=== PATIENT | female | born 1945 | race Two or more races ===

== ENCOUNTER 2017-08-29 05:16 | Day surgery (SDC) | payer OTHER ==
[2017-08-28 17:06] VITALS: BMI 33.0
[2017-08-29] MEDS ORDERED: LIDOCAINE HCL 2% 100 MG/5 ML DISP.SYRIN ONE (07:10)
[2017-08-29] MEDS ORDERED: DEXAMETHASONE SOD PHOSPHATE 4 MG/1 ML VIAL ONE (07:10)
[2017-08-29] MEDS ORDERED: SUCCINYLCHOLINE CHLORIDE 200 MG/10 ML VIAL ONE (07:11)
[2017-08-29] MEDS ORDERED: PROPOFOL 20 ML ONE (07:11)
[2017-08-29] MEDS ORDERED: MIDAZOLAM HCL 2 MG/2 ML SINGLE DOSE VIAL ONE ×3 (07:11→07:34)
--- NOTE | 2017-08-29 08:11 | HP ---
[facility]ellite [facility] - Chief Complaint Chief Complaint: right shoulder pain, decreased ROM History of Present Illness: right shoulder impingement, RTC tear History Source: Patient Limitations to Obtaining History: No Limitations - Past Medical History Allergies/Adverse Reactions: Allergies Allergy/AdvReac Type Severity Reaction Status Date / Time No Known Drug Allergies Allergy Verified 08/28/17 17:06 - Current Medications Current Medications: Home Medications Medication Instructions Recorded NK [No Known Home Medication] 08/28/17 Satellite Physical Exam - Physical Examination Vital Signs: Vital Signs Period Temp Pulse Resp BP Sys/Bellamy Pulse Ox Last 24 Hr 98.3 F-98.3 F 85-85 20-20 119-119/51-51 95 General Appearance: Well Nourished ENT: Clear Lung: Clear to auscultation Heart: Regular rate & rhythm Breasts: Soft Abdomen: Soft Extremities: No edema Satellite Impression/Plan - Impression/Plan Impression: right shoulder impingement, RTC tear Operative Procedure: right shoulder arthroscopy, decompression, RTC tear Date to be Performed: 08/29/17
[2017-08-29] MEDS ORDERED: ceFAZolin SODIUM 1 GM VIAL IVPB ONE (08:30)
[2017-08-29] MEDS ORDERED: ceFAZolin SODIUM 1 GM VIAL ONE ×2 (08:40→10:56)
[2017-08-29] MEDS ORDERED: PHENYLEPHRINE HCL 10 MG/1 ML SINGLE DOSE VIAL ONE (09:16)
--- NOTE | 2017-08-29 09:45 | OP ---
Operative Note - Note: Operative Date: 08/29/17 Pre-Operative Diagnosis: right shoulder impingement, RTC tear, adhesive capsulitis Operation: right shoulder arthroscopy, subacromial decompression, manipulation under anesthesia, open RTC repair Implants: Arthrex Swivel Lock x 2, fiber wire x 4 Surgeon: Mohsen Bello Academic Affairs Director: Shahbaz Jett Anesthesiologist/FASHION DESIGNER: Beatriz East Anesthesia: General, Local Specimens Removed: shavings Estimated Blood Loss (mls): 50 Blood Volume Replaced (mls): 0 Fluid Volume Replaced (mls): 500 Operative Report Dictated: Yes
[2017-08-29] MEDS ORDERED: ONDANSETRON 4 MG/2 ML VIAL IVPUSH PRN (10:37)
[2017-08-29] MEDS ORDERED: oxyCODONE HCL 5 MG TABLET PO PRN ×2 (10:37)
[2017-08-29] MEDS ORDERED: LACTATED RINGERS SOLUTION 1,000 ML IV SCH (10:45)
[2017-08-29 11:32] VITALS: TEMP 97.8
--- NOTE | 2017-08-29 12:15 | OP ---
DATE OF OPERATION: 08/29/2017 PREOPERATIVE DIAGNOSIS: Right shoulder subacromial impingement, adhesive capsulitis, and rotator cuff tear. POSTOPERATIVE DIAGNOSIS: Right shoulder subacromial impingement, adhesive capsulitis, and rotator cuff tear. PROCEDURE: Right shoulder arthroscopy, subacromial decompression, manipulation under anesthesia, and mini-open rotator cuff repair. SURGEON: Maximo Templeton MD BELLY PACKER: JESSICA Cabrera WALL CLEANER: Tracie Noeln ANESTHESIA: Right interscalene block with Dr. Tommy Murphy and LMA anesthesia. DRAINS: None. COMPLICATIONS: None. SPECIMEN: Arthroscopic shavings. BLOOD LOSS: 50 mL. BLOOD GIVEN: None. FLUID REPLACEMENT: 500 mL. DESCRIPTION OF PROCEDURE: The patient is a 72-year-old female with a preoperative diagnosis of a right shoulder impingement, adhesive capsulitis, and a rotator cuff tear. After understanding the potential risks, complications, alternatives, and benefits of surgery versus nonsurgical treatment, the patient elected to undergo this procedure. The patient was brought into the operating room, peripheral IV placed, and IV sedation given. One gram of IV Ancef was given. Right interscalene block was performed. LMA anesthesia was induced. She was placed in the beach-chair position with ample padding throughout. The right upper extremity was prepped and draped in sterile fashion. The bony landmarks were marked out with a marking pen, and posterior portal was established. A diagnostic glenohumeral arthroscopy was performed. The patient had a complete rotator cuff tear. The biceps tendon, the labrum, the glenohumeral joint otherwise looked good. The arthroscope was then introduced into the subacromial space. Under direct visualization using a spinal needle, a lateral portal was established. The Green cannula was introduced into this portal. Patient had a tremendous amount of inflammatory bursitis. An extensive debridement/soft tissue bursectomy was performed with the ArthroCare Wand. This revealed a moderate size subacromial spur. This was taken down with a 5.5-mm oval arlyn and fine-tuned in reverse with the shaver. Small portion of distal clavicle was removed, as well. The area was copiously irrigated and washed out. The top surface full complete rotator cuff tear was directly visualized. The ArthroCare Wand was used to remove some soft tissue at the insertion site of the rotator cuff, and the rasp used to decorticate it mildly. Next, using the Scorpion needle passer, 4 FiberWires were placed through the rotator cuff. I then mobilized it with the periosteal elevator. We converted to a mini-open approach. The lateral portal was extended with a No. 11 scalpel blade. Subcutaneous hemostasis was achieved with a Bovie cautery. Dissection done down to the acromion. A Judy retractor was placed into the wound. Additional open bursectomy was performed. The rotator cuff lining bed was further decorticated with the rasp for better fixation. I tried to immobilize it more. Next, the posterior 4 FiberWire suture tails were placed through an Arthrex SwiveLock anchor. This was placed into the humeral head. The same was done to the anterior 4 FiberWire tails. After the rotator cuff repair, the rotator cuff moved as a unit with the humerus. There was complete coverage of the humeral head and overall the repair was quite good. I felt the undersurface of the rotator cuff and the decompression was quite good. The area was copiously irrigated and washed out. Closure was done with 0 Vicryl in the deep deltoid fascia, 2-0 Vicryl used in the deep dermal layer, final skin reapproximation was done with a running subcuticular 3-0 V-Loc suture, and the posterior portal was closed with nylon. SwiftSet glue was over the lateral incision. The area was washed dry and covered with Aquacel dressing. The patient was placed into shoulder immobilizer. Total operative time was about 55 minutes. There were no complications during the case. The patient tolerated the procedure quite well and was brought to the ambulatory recovery room in stable condition. MAXIMO TEMPLETON M.D. [id number]
[2017-08-29 14:38] VITALS: BP 142/72; PULSE 100
--- NOTE | 2017-08-30 17:47 | PATH ---
Surgical Pathology Report Patient Name: KYLER ANDINO Med. Rec. #: [id number] /Age/Gender: 1945 (Age: 72) / F Account: [id number] Location: [facility] SURGICAL Taken: 08/29/2017 Received: 08/29/2017 Reported: 08/30/2017 Physicians: Mohsen Bello M.D. Specimen(s) Received RIGHT SHOULDER SHAVINGS Clinical History Rotator cuff tear right shoulder Final Diagnosis SHOULDER SHAVINGS, RIGHT, ARTHROSCOPY: FRAGMENTS OF BENIGN CARTILAGE, SYNOVIUM, ADIPOSE TISSUE, AND SKELETAL MUSCLE. Electronically Signed Shantelle Rivas M.D. Gross Description Received in formalin labeled "right shoulder shavings," is a 1.8 x 1.5 x 0.3 cm aggregate of cohn soft tissue fragments. The formalin is filtered and the specimen is entirely submitted in one cassette. /08/29/2017 saudi/08/29/2017
== END 2017-08-29 13:20 | disposition home or self-care (01) ==
LOC: JASU-SURG 05:16
PROVIDERS: ATTEND Orthopaedic Surgery
PROC: 0RBK4ZZ Excision of Left Shoulder Joint, Percutaneous Endoscopic Approach (ICD-10-PCS; principal; 2017-08-29 08:00)
PROC: 0LQ10ZZ Repair Right Shoulder Tendon, Open Approach (ICD-10-PCS; 2017-08-29 08:00)
DX: M75.41 Impingement syndrome of right shoulder (principal); M75.01 Adhesive capsulitis of right shoulder; M75.101 Unspecified rotator cuff tear or rupture of right shoulder, not specified as traumatic
CPT/HCPCS: 88304-TC; 94760

== ENCOUNTER 2017-09-22 10:09 | Inpatient (IN) | payer OTHER ==
[2017-09-22] MEDS ORDERED: morphine CARPU-JECT 4 MG/1 ML DISP.SYRIN IVPUSH ONE (11:24)
[2017-09-22] MEDS ORDERED: SODIUM CHLORIDE 1,000 ML IV STA (11:24)
--- NOTE | 2017-09-22 11:24 | PDOC ---
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 Pt notes the pain was severe on sun into , then improved. saw her PMD who started her on omeprazole with improvement of her symptoms Pt states the pain was originally 12/10, on / sun/sat, improved to 5/10. pt denies any fever/chills, n/v, cp, diaprheosis, sob , diarrhea, dysuria, hematuria. Pt states she has not eaten anything in 3 days due to the pain. No prior history of tihs pain in the past, this pain not worse with exertion. GENERAL: The patient is awake, alert, and fully oriented, Nontoxic - in no acute distress. HEAD: Normocephalic, atraumatic. EYES: extraocular movements intact, sclera anicteric, conjunctiva clear. ENT: Normal voice, Moist mucous membranes. NECK: Normal range of motion, supple LUNGS: Breath sounds equal, clear to auscultation bilaterally. No wheezes, no rhonchi, no rales. HEART: Regular rate and rhythm, normal S1 and S2 without murmur, rub or gallop. ABDOMEN: moderate RUQ and epigastric tenderness, no rebound/guarding, +Murphies test EXTREMITIES: Normal range of motion, no edema. No clubbing or cyanosis. No cords, erythema, or tenderness. NEUROLOGICAL: No facial assymetry, Normal speech, PSYCH: Normal mood, normal affect. SKIN: Warm, Dry, normal turgor, ddx includs cholelithiasis, cholecystitis, pancreatitis, recurrent gastric ca will ck labs pain meds, zofran for nausea fluids for dheydartation - Physicial Exam PE: 09/23/17 14:54 see aboive - Medical Decision Making 09/22/17 15:04 The patient's labs were reviewed and noted for white count of 15. The patient's CT noted changes suspicious of cholecystitis. We'll give the patient antibiotics will consult with surgery anticipate admission for further management 09/22/17 15:[address] brady of surgery Will admit to the hospitalist service agree with admission for further management Case discussed in detail with admitting physician including history, physical exam and ancillary studies. Admitting physician has assumed care for the patient, will follow all pending diagnostics and will complete the evaluation and treatment. <Satish Byers - Last Filed: 09/23/17 14:54> Heart Score/ECG Review - ECG Impressions Comment:: 09/22/17 15:05 Twelve-lead EKG was performed and reviewed by me. There is normal sinus rhythm with a rate of 109 Q waves in inferior leads No ST changes suggestive of acute ischemia. <Satish Byers - Last Filed: 09/23/17 14:54> ED Treatment Course - LABORATORY CBC & Chemistry Diagram: 09/22/17 11:55 09/22/17 11:55 - ADDITIONAL ORDERS Additional order review: Laboratory Results 09/22/17 09/22/17 11:55 11:55 Sodium 135 L Potassium 4.0 Chloride 99 Carbon Dioxide 27 Anion Gap 9 BUN 17 Creatinine 0.8 Creat Clearance w eGFR > 60 Random Glucose 104 Calcium 9.0 Total Bilirubin 0.9 D AST 16 ALT 26 Alkaline Phosphatase 126 H Total Protein 7.3 Albumin 3.2 L Lipase 87 Urine Color Felicia Urine Appearance Slcloudy Urine pH 5.0 Ur Specific [place] 1.028 Urine Protein 2+ H Urine Glucose (UA) Negative Urine Ketones Negative Urine Blood Negative Urine Nitrite Negative Urine Bilirubin Negative Urine Urobilinogen 4.0 e.u/dl H Ur Leukocyte Esterase Negative Urine WBC (Auto) 3 Urine RBC (Auto) 14 Ur Epithelial Cells Many Urine Bacteria Rare Urine Mucus Many 09/22/17 11:55 RBC 4.28 MCV 93.9 MCHC 33.6 RDW 13.3 MPV 8.3 Neutrophils % 82.2 D Lymphocytes % 8.6 D Monocytes % 7.6 Eosinophils % 1.3 D Basophils % 0.3 - RADIOLOGY Radiograph Interpretation: 09/22/17 15:21 EXAM: CT abdomen and Pelvis INTERPRETED BY: Dr. Armando REVIEWED BY: Dr. Byers IMPRESSION: 1. Cholelithiasis and CT findings compatible with acute cholecystitis in the appropriate clinical setting. 2. Since 09/27/2010 CT, interval resolution of solid mesenteric mass/lymphadenopathy. 3. Nonobstructing left nephrolithiasis as described above. No hydronephrosis. 4. Hepatic steatosis. 5. Please refer to the report above for other findings. - Medications Given in the ED: ED Medications Discontinued Medications Generic Name Dose Route Start Last Admin Trade Name Freq PRN Reason Stop Dose Admin Sodium Chloride 1,000 mls @ 1,000 mls/hr 09/22/17 11:24 09/22/17 11:54 Normal Saline - IV 09/22/17 12:23 1,000 mls/hr ASDIR STA Administration Morphine Sulfate 4 mg 09/22/17 11:24 09/22/17 11:54 Morphine Injection - IVPUSH 09/22/17 11:25 4 mg ONCE ONE Administration Ondansetron HCl 4 mg 09/22/17 11:27 09/22/17 11:54 Zofran Injection IVPUSH 09/22/17 11:28 4 mg ONCE ONE Administration <Graham Yen - Last Filed: 09/22/17 15:17> - LABORATORY CBC & Chemistry Diagram: 09/23/17 07:00 09/23/17 07:00 <Satish Byers - Last Filed: 09/23/17 14:54>
[2017-09-22] MEDS ORDERED: ONDANSETRON 4 MG/2 ML VIAL IVPUSH ONE (11:27)
[2017-09-22] MEDS ORDERED: SODIUM CHLORIDE 1,000 ML IV SCH (11:30)
--- NOTE | 2017-09-22 11:35 | EKG ---
Test Reason : Blood Pressure : / mmHG Vent. Rate : 109 BPM Atrial Rate : 109 BPM P-R Int : 152 ms QRS Dur : 074 ms QT Int : 302 ms P-R-T Axes : 044 010 026 degrees QTc Int : 406 ms SINUS TACHYCARDIA POSSIBLE LEFT ATRIAL ENLARGEMENT INFERIOR INFARCT , AGE UNDETERMINED CANNOT RULE OUT ANTERIOR INFARCT , AGE UNDETERMINED ABNORMAL ECG WHEN COMPARED WITH ECG OF 18-AUG-2017 10:28, INFERIOR INFARCT IS NOW PRESENT Confirmed by JESSICA CONDE, NIKOLAY ([id number]) on 09/22/2017 11:34:38 AM Referred By: Confirmed By:NIKOLAY LOPEZ MD
[2017-09-22] MEDS ORDERED: morphine SULFATE 4 MG/ML VIAL ONE (11:38)
[2017-09-22] MEDS ORDERED: ONDANSETRON 4 MG/2 ML VIAL ONE (11:38)
--- NOTE | 2017-09-22 11:43 | PDOC ---
History of Present Illness - General History Source: Patient Exam Limitations: No Limitations, Language Barrier - History of Present Illness Initial Comments: 09/22/17 11:28 72 year old female with pmhx of gastric lymphoma S/P chemo therapy 7 years ago and recent r shoulder surgery presented to the ED today with 3 days history of abdominal pain 7/10 , pressure like id epigastric , radiated to RUQ abdomen, not related to food , worsen with any movement , associated with headache 7/10 B.L , nausea but no vomiting, denies any fever, chills, recent cold, diarrhea or constipation , pt reports not eating for the last 2 days due to pain , she feels very dry and get dizziy when she get out of bed. pt visited her PC and prescribed her omeprazole 40 mg that help with pain. PMHX: Gastric lymphoma 7 years ago treated with chemotherapy PSHx: Right shoulder surgery Allergis: NKDA Meds: Omeprazole 40 mg po daily Fhx: Father of prostate cancer, mother 102 healthy Social hx: denies alcohol tobacco or drug abuse Physical Exam: Vital Signs Period Temp Pulse Resp BP Sys/Bellamy Pulse Ox Last 24 Hr 98.6 F 111 19 141/57 96 General: well nourished in NAD , right arm in sling Head: NC/AT , ENT: dry MM, SARINA , EOMI , Neck: supple Lungs: CTA B/L Heart: S1, S2, RRR, No MRG Abdomen: soft, diffuse tenderness in Mid epigastric , RUQ , umbilical area , brown;s positive , Neuro: no focal deficit, normal speech , normal gait , no tremor, no nystagmus , sensation symmetric, LE: +2 DP, no edema Psych: appropriate mood and effect. DD: Biliary cholic stones , cholecytitis R/O lymphoma mets UTI Pancretitis Work UP: CBC, cmp Lipase ct abdomen pelvic with iv contrast Morphine iV 2 mg Zofran 4 mg iv push 09/22/17 13:40 KKG: Sinus tachy, possible left atrial enlargement, inferior infarct age undertemined , can not r/o anterior infarct , vent rate 109, qtc 406 CBC, BMP 09/22/17 11:55 09/22/17 11:55 <Ryan An - Last Filed: 09/25/17 09:05> <Satish Byers - Last Filed: 09/27/17 09:32> - General Chief Complaint: Pain, Acute Stated Complaint: ABD PAIN Time Seen by Provider: 09/22/17 10:51 Past History - Past Medical History Anemia: No Asthma: No Cancer: Yes (HX OF LYMPHOMA 2010) Cardiac Disorders: No CVA: No COPD: No CHF: No Dementia: No Diabetes: No GI Disorders: No Disorders: No HTN: No Hypercholesterolemia: No Liver Disease: No Seizures: No Thyroid Disease: No - Surgical History Abdominal Surgery: No Appendectomy: Yes (MANY YEARS AGO) Cardiac Surgery: No Cholecystectomy: No Lung Surgery: No Neurologic Surgery: No - Suicide/Smoking/Psychosocial Hx Smoking History: Never smoked Have you smoked in the past 12 months: No Hx Alcohol Use: No Drug/Substance Use Hx: No Substance Use Type: None Hx Substance Use Treatment: No <Ryan An - Last Filed: 09/25/17 09:05> <Satish Byers - Last Filed: 09/27/17 09:32> - Past Medical History Allergies/Adverse Reactions: Allergies Allergy/AdvReac Type Severity Reaction Status Date / Time No Known Drug Allergies Allergy Verified 09/22/17 10:32 Home Medications: Ambulatory Orders Acetaminophen [Tylenol] 650 mg PO Q4H PRN 09/22/17 Omeprazole 40 mg PO DAILY 09/22/17 Amoxicillin/Potassium Clav [Augmentin 875-125 Tablet] 1 each PO BID #14 tablet 09/26/17 *Physical Exam - Vital Signs Last Vital Signs Temp Pulse Resp BP Pulse Ox 98.6 F 111 H 19 141/57 96 09/22/17 10:32 09/22/17 10:32 09/22/17 10:32 09/22/17 10:32 09/22/17 10:32 <Ryan An - Last Filed: 09/25/17 09:05> - Vital Signs Last Vital Signs Temp Pulse Resp BP Pulse Ox 99.7 F H 90 20 148/72 94 L 09/26/17 15:48 09/26/17 15:48 09/26/17 15:48 09/26/17 15:48 09/26/17 09:00 <Satish Byers - Last Filed: 09/27/17 09:32> ED Treatment Course - LABORATORY CBC & Chemistry Diagram: 09/25/17 06:15 09/25/17 06:15 <Ryan An - Last Filed: 09/25/17 09:05> - LABORATORY CBC & Chemistry Diagram: 09/26/17 05:35 09/26/17 05:35 - ADDITIONAL ORDERS Additional order review: 09/22/17 15:45 Blood Culture - Preliminary Blood - Peripheral Venous NO GROWTH OBTAINED AFTER 96 HOURS, INCUBATION TO CONTINUE FOR 1 DAYS. 09/22/17 15:45 Blood Culture - Preliminary Blood - Peripheral Venous NO GROWTH OBTAINED AFTER 96 HOURS, INCUBATION TO CONTINUE FOR 1 DAYS. 09/22/17 11:55 RBC 4.28 MCV 93.9 MCHC 33.6 RDW 13.3 MPV 8.3 Neutrophils % 82.2 D Lymphocytes % 8.6 D Monocytes % 7.6 Eosinophils % 1.3 D Basophils % 0.3 - Medications Given in the ED: ED Medications Discontinued Medications Generic Name Dose Route Start Last Admin Trade Name Freq PRN Reason Stop Dose Admin Bisacodyl 10 mg 09/26/17 10:00 09/26/17 11:06 Dulcolax Suppository - RC 09/26/17 10:01 10 mg ONCE ONE Administration Bisacodyl 5 mg 09/26/17 14:00 09/26/17 14:01 Dulcolax - PO 09/26/17 14:01 5 mg ONCE ONE Administration Fentanyl 50 mcg 09/24/17 18:38 09/24/17 22:05 Sublimaze Injection - IVPUSH 50 mcg [id number] PRN Administration PAIN-PACU ORDER X 4 DOSES ONLY Heparin Sodium (Porcine) 5,000 unit 09/22/17 22:00 09/24/17 14:56 Heparin - SQ Not Given TID TRACEY Heparin Sodium (Porcine) 5,000 unit 09/24/17 22:00 09/26/17 14:01 Heparin - SQ 5,000 unit TID TRACEY Administration Sodium Chloride 1,000 mls @ 125 mls/hr 09/22/17 11:30 09/22/17 12:29 Normal Saline - IV 125 mls/hr ASDIR TRACEY Administration Sodium Chloride 1,000 mls @ 1,000 mls/hr 09/22/17 11:24 09/22/17 11:54 Normal Saline - IV 09/22/17 12:23 1,000 mls/hr ASDIR STA Administration Metronidazole 500 mg in 100 mls @ 100 mls/hr 09/22/17 15:04 09/22/17 15:15 Flagyl 500mg Premixed Ivpb - IVPB 09/22/17 16:03 100 mls/hr ONCE ONE Administration Levofloxacin 750 mg in 150 mls @ 100 mls/hr 09/22/17 15:04 09/22/17 16:07 Levaquin 750 Mg Premixed Ivpb - IVPB 09/22/17 16:33 100 mls/hr ONCE ONE Administration Potassium Chloride/Dextrose/Sod Cl 20 meq in 1,000 mls @ 83 mls/hr 09/23/17 10 :00 09/24/17 10:22 D5-1/2ns+20 Meq Kcl - IV Not Given ASDIR TRACEY Metronidazole 500 mg in 100 mls @ 100 mls/hr 09/23/17 12:30 09/23/17 13:37 Flagyl 500mg Premixed Ivpb - IVPB Not Given Q8H-IV TRACEY Levofloxacin 500 mg in 100 mls @ 100 mls/hr 09/23/17 12:30 09/23/17 13:37 Levaquin 500 Mg Premixed Ivpb - IVPB Not Given DAILY TRACEY Piperacillin Sod/Tazobactam 50 mls @ 100 mls/hr 09/23/17 13:45 09/24/17 17:43 Sod 3.375 gm/ Dextrose IVPB 100 mls/hr Q8H-IV TRACEY Administration Protocol Potassium Chloride/Dextrose/Sod Cl 20 meq in 1,000 mls @ 83 mls/hr 09/24/17 21 :24 09/26/17 01:30 D5-1/2ns+20 Meq Kcl - IV 83 mls/hr ASDIR TRACEY Administration Piperacillin Sod/Tazobactam 50 mls @ 100 mls/hr 09/25/17 02:00 09/26/17 11:40 Sod 3.375 gm/ Dextrose IVPB Not Given Q8H-IV TRACEY Protocol Piperacillin Sod/Tazobactam 50 mls @ 100 mls/hr 09/26/17 11:00 09/26/17 11:46 Sod 3.375 gm/ Dextrose IVPB 09/26/17 18:29 Not Given Q8H-IV TRACEY Ibuprofen 600 mg 09/24/17 21:24 09/25/17 11:04 Motrin - PO 600 mg Q6H PRN Administration PAIN LEVEL 4 - 6 Ketorolac Tromethamine 30 mg 09/23/17 12:34 09/23/17 13:45 Toradol Injection - IVPUSH 09/23/17 12:35 30 mg ONCE ONE Administration Morphine Sulfate 4 mg 09/22/17 11:24 09/22/17 11:54 Morphine Injection - IVPUSH 09/22/17 11:25 4 mg ONCE ONE Administration Morphine Sulfate 1 mg 09/22/17 15:56 09/23/17 09:03 Morphine Sulfate IVPUSH 1 mg Q4H PRN Administration PAIN LEVEL 6-10 Morphine Sulfate 1 mg 09/24/17 21:24 09/25/17 06:23 Morphine Sulfate IVPUSH 1 mg Q4H PRN Administration PAIN LEVEL 7 - 10 Ondansetron HCl 4 mg 09/22/17 11:27 09/22/17 11:54 Zofran Injection IVPUSH 09/22/17 11:28 4 mg ONCE ONE Administration Oxycodone HCl 5 mg 09/25/17 13:16 09/25/17 14:15 Roxicodone - PO 09/25/17 13:17 5 mg ONCE ONE Administration Pantoprazole Sodium 40 mg 09/23/17 10:00 09/24/17 10:22 Protonix Iv IVPUSH 40 mg DAILY TRACEY Administration Pantoprazole Sodium 40 mg 09/25/17 10:00 09/26/17 12:40 Protonix Iv IVPUSH Not Given DAILY TRACEY Pantoprazole Sodium 40 mg 09/26/17 13:15 09/26/17 14:01 Protonix - PO 40 mg DAILY TRACEY Administration Polyethylene Glycol 17 gm 09/25/17 10:00 09/26/17 11:06 Miralax (For Daily Use) - PO 17 grams DAILY TRACEY Administration <Satish Byers - Last Filed: 09/27/17 09:32> Medical Decision Making - Medical Decision Making 09/27/17 09:31 diagnosis: cholecysitits pt give antibiotics will be admitted for further managment and surgical evaluation <Satish Byers - Last Filed: 09/27/17 09:32> *DC/Admit/Observation/Transfer <Ryan An - Last Filed: 09/25/17 09:05> <Satish Byers - Last Filed: 09/27/17 09:32> Diagnosis at time of Disposition: Cholecystitis - Discharge Dispostion Disposition: HOME Condition at time of disposition: Improved
[2017-09-22 12:32] LABS: BASO % 0.3 % (0-2.0); EOS % 1.3 % (0-4.5); HEMATOCRIT 40.2 % (32.4-45.2); HEMOGLOBIN 13.5 GM/dL (10.7-15.3); LYMPH % 8.6 % (8-40); MCH 31.5 pg (25.7-33.7); MCHC 33.6 g/dl (32.0-36.0); MEAN CELL VOLUME 93.9 fl (80-96); MEAN PLT VOLUME 8.3 fl (7.5-11.1); MONO % 7.6 % (3.8-10.2); NEUT % 82.2 % (42.8-82.8); PLATELET COUNT 308 K/MM3 (134-434); RBC 4.28 M/mm3 (3.60-5.2); RDW 13.3 % (11.6-15.6); WHITE BLOOD COUNT 15.3 K/mm3 (4.0-10.0)
[2017-09-22 12:34] LABS: URINE APPEARANCE SLCLOUDY; URINE BILIRUBIN NEGATIVE (<2.0 mg/dL); URINE COLOR AMBER; URINE GLUCOSE (UA) NEGATIVE (NEGATIVE); URINE KETONE NEGATIVE (NEGATIVE); URINE LEUK ESTERASE NEGATIVE (NEGATIVE); URINE NITRITE NEGATIVE (NEGATIVE); URINE UROBILINOGEN 4.0 E.U/dl mg/dL (0.2-1.0)
[2017-09-22 12:54] LABS: URINE PROTEIN 2+ (NEGATIVE)
[2017-09-22 12:57] LABS: EPI CELLS MANY /HPF (FEW); URINE BACTERIA RARE /hpf (NONE SEEN); URINE MUCUS MANY
[2017-09-22 13:02] LABS: ALBUMIN 3.2 g/dl (3.4-5.0); ANION GAP 9 (8-16); BLOOD UREA NITROGEN 17 mg/dL (7-18); CHLORIDE 99 mmol/L (98-107); CO2 27 mmol/L (21-32); CREATININE 0.8 mg/dL (0.55-1.02); GLUCOSE,RANDOM 104 mg/dL (74-106); LIPASE 87 U/L (73-393); SGOT/AST 16 U/L (15-37); SGPT/ALT 26 U/L (12-78); SODIUM 135 mmol/L (136-145)
[2017-09-22 13:03] LABS: ALK PHOS 126 U/L (45-117); BILIRUBIN,TOTAL 0.9 mg/dL (0.2-1.0); TOT PROT 7.3 g/dl (6.4-8.2)
--- NOTE | 2017-09-22 15:44 | HP ---
CHIEF COMPLAINT: Abdominal pain PCP: Dr. 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 Patient states her pain began on Sunday night at 8 pm. She states the pain was severe, 10/10, and constant. She called Dr. Ramos on who prescribed omeprazole. She took it with no relief. She went to his office today and was sent to the ER. Patient endorses nausea with food and loss of appetite x 3 days. She denies fever, chills, chest pain, shortness of breath , vomiting, diarrhea, constipation, lower extremity edema. ER course was notable for: (1) labs- leukocytosis (2) vitals- tachycardia (3) CT abd/pelvis-- acute cholecystitis Recent Travel: denies PAST MEDICAL HISTORY: as per hpi PAST SURGICAL HISTORY: appendectomy, recent right shoulder surgery Social History: Smoking:denies Alcohol:denies Drugs: denies Family History: noncontributory Allergies No Known Drug Allergies Allergy (Verified 09/22/17 10:32) HOME MEDICATIONS: Home Medications Medication Instructions Recorded Omeprazole 40 mg PO DAILY 09/22/17 REVIEW OF SYSTEMS CONSTITUTIONAL: Absent: fever, chills, diaphoresis, generalized weakness, malaise, loss of appetite, weight change HEENT: Absent: rhinorrhea, nasal congestion, throat pain, throat swelling, difficulty swallowing, mouth swelling, ear pain, eye pain, visual changes CARDIOVASCULAR: Absent: chest pain, syncope, palpitations, irregular heart rate, lightheadedness , peripheral edema RESPIRATORY: Absent: cough, shortness of breath, dyspnea with exertion, orthopnea, wheezing, stridor, hemoptysis GASTROINTESTINAL: Absent: abdominal pain, abdominal distension, nausea, vomiting, diarrhea, constipation, melena, hematochezia GENITOURINARY: Absent: dysuria, frequency, urgency, hesitancy, hematuria, flank pain, genital pain MUSCULOSKELETAL: Absent: myalgia, arthralgia, joint swelling, back pain, neck pain SKIN: Absent: rash, itching, pallor HEMATOLOGIC/IMMUNOLOGIC: Absent: easy bleeding, easy bruising, lymphadenopathy, frequent infections ENDOCRINE: Absent: unexplained weight gain, unexplained weight loss, heat intolerance, cold intolerance NEUROLOGIC: Absent: headache, focal weakness or paresthesias, dizziness, unsteady gait, seizure, mental status changes, bladder or bowel incontinence PSYCHIATRIC: Absent: anxiety, depression, suicidal or homicidal ideation, hallucinations. PHYSICAL EXAMINATION Vital Signs - 24 hr 09/22/17 09/22/17 10:32 13:33 Temperature 98.6 F 98.9 F Pulse Rate 111 H Pulse Rate [ 102 H Apical] Respiratory 19 20 Rate Blood Pressure 141/57 Blood Pressure 110/70 [Left Arm] O2 Sat by Pulse 96 96 Oximetry (%) GENERAL: Awake, alert, and fully oriented, in no acute distress. HEAD: Normal with no signs of trauma. EYES: Extraocular movements intact, sclera anicteric, conjunctiva clear. No lid lag. EARS, NOSE, THROAT: Ears normal, nares patent, oropharynx clear without exudates. Dry mucous membranes. NECK: Normal range of motion, supple without lymphadenopathy, JVD, or masses. LUNGS: Breath sounds equal, clear to auscultation bilaterally. No wheezes, and no crackles. No accessory muscle use. HEART: Tachycardic, Regular rhythm, normal S1 and S2 without murmur, rub or gallop. ABDOMEN: Soft, +Epigastric tenderness, RUQ tenderness, +Thurman's sign, not distended, normoactive bowel sounds, no guarding, no rebound, no masses. No hepatomegaly or splenomegaly. MUSCULOSKELETAL: Normal range of motion at all joints. No bony deformities or tenderness. No CVA tenderness. UPPER EXTREMITIES: 2+ pulses, warm, well-perfused. No cyanosis. No clubbing. No peripheral edema. LOWER EXTREMITIES: 2+ pulses, warm, well-perfused. No calf tenderness. No peripheral edema. NEUROLOGICAL: Cranial nerves II-XII intact. Normal speech. Normal gait. PSYCHIATRIC: Cooperative. Good eye contact. Appropriate mood and affect. SKIN: Warm, dry, normal turgor, no rashes or lesions noted, normal capillary refill. Laboratory Results - last 24 hr 09/22/17 09/22/17 09/22/17 11:55 11:55 11:55 WBC 15.3 H D RBC 4.28 Hgb 13.5 Hct 40.2 MCV 93.9 MCH 31.5 MCHC 33.6 RDW 13.3 Plt Count 308 MPV 8.3 Neutrophils % 82.2 D Lymphocytes % 8.6 D Monocytes % 7.6 Eosinophils % 1.3 D Basophils % 0.3 Sodium 135 L Potassium 4.0 Chloride 99 Carbon Dioxide 27 Anion Gap 9 BUN 17 Creatinine 0.8 Creat Clearance w eGFR > 60 Random Glucose 104 Calcium 9.0 Total Bilirubin 0.9 D AST 16 ALT 26 Alkaline Phosphatase 126 H Total Protein 7.3 Albumin 3.2 L Lipase 87 Urine Color Felicia Urine Appearance Slcloudy Urine pH 5.0 Ur Specific [place] 1.028 Urine Protein 2+ H Urine Glucose (UA) Negative Urine Ketones Negative Urine Blood Negative Urine Nitrite Negative Urine Bilirubin Negative Urine Urobilinogen 4.0 e.u/dl H Ur Leukocyte Esterase Negative Urine WBC (Auto) 3 Urine RBC (Auto) 14 Ur Epithelial Cells Many Urine Bacteria Rare Urine Mucus Many ASSESSMENT/PLAN: 72 year old F with 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 Waldron #Gastric lymphoma, in remission -f/u with oncology outpatient #FEN/GI -IVF @ 125 cc/hr -wnl -npo #PPx -Heparin 5000 sq q8h Dispo: Adm M/s Visit type - Emergency Visit Emergency Visit: Yes Care time: The patient presented to the Emergency Department on the above date and was hospitalized for further evaluation of their emergent condition. - New Patient This patient is new to me today: Yes Date on this admission: 09/22/17 - Critical Care Critical Care patient: No Hospitalist Screening - Colonoscopy Questionnaire Colonoscopy Questionnaire: Colonoscopy Questionnaire - Patient: 50 - 75 years old and never had a screening colonoscopy: Unknown History of colon or rectal polyps, or CA: Unknown History of IBD, Crohn's disease or UC: Unknown History of abdominal radiation therapy as a child: Unknown - Relative: 1 with colon or rectal CA, or polyps at age 60 or younger: Unknown Colon or rectal CA diagnosed at age 45 or younger: Unknown Multiple relatives with colon or rectal CA: Unknown - Outcome: Screening Result: Negative Screen
[2017-09-22] MEDS ORDERED: ONDANSETRON 4 MG/2 ML VIAL IVPUSH PRN (15:56)
--- NOTE | 2017-09-22 16:03 | CONSULT ---
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 Patient states her pain began on Sunday night at 8 pm. She states the pain was severe, 10/10, and constant. She called Dr. Ramos on who prescribed omeprazole. She took it with no relief. She went to his office today and was sent to the ER. Patient endorses nausea with food and loss of appetite x 3 days. She denies fever, chills, chest pain, shortness of breath, vomiting, diarrhea, constipation, lower extremity edema. no previous abdominal surgery. we were asked to assess. - History Source History Provided By: Patient, Medical Record Limitations to Obtaining History: No Limitations - Past Medical History Heme/Onc: Yes: Other (lymphoma) Additional Medical History: obesity - Alcohol/Substance Use Hx Alcohol Use: No - Smoking History Smoking history: Never smoked Have you smoked in the past 12 months: No Home Medications - Allergies Allergies/Adverse Reactions: Allergies Allergy/AdvReac Type Severity Reaction Status Date / Time No Known Drug Allergies Allergy Verified 09/22/17 10:32 - Home Medications Home Medications: Ambulatory Orders Omeprazole 40 mg PO DAILY 09/22/17 Review of Systems - Review of Systems Constitutional: denies: Chills, Fever, Malaise Eyes: denies: Blind Spots, Recent Change in Vision HENT: denies: Nasal Congestion, Ocular Prosthesis, Throat Pain Neck: denies: Stiffness, Tenderness Cardiovascular: denies: Chest Pain, Palpitations Respiratory: denies: Cough, SOB Gastrointestinal: reports: Abdominal Pain, Bloating. denies: Constipation, Diarrhea Genitourinary: denies: Discharge, Dysuria Musculoskeletal: denies: Muscle Pain, Muscle Cramps, Muscle Weakness Integumentary: reports: Incision (right shoulder). denies: Lesions, Rash Neurological: denies: Seizure, Syncope Endocrine: denies: Excessive Sweating, Unexplained Weight Gain, Unexplained Weight Loss Hematology/Lymphatic: denies: Easily Bruised, Excessive Bleeding Psychiatric: denies: Anxiety, Depression Physical Exam Vital Signs: Vital Signs Temperature 98.9 F 09/22/17 13:33 Pulse Rate 102 H 09/22/17 13:33 Respiratory Rate 20 09/22/17 13:33 Blood Pressure 110/70 09/22/17 13:33 O2 Sat by Pulse Oximetry (%) 96 09/22/17 13:33 Vital Signs Period Temp Pulse Resp BP Sys/Bellamy Pulse Ox Last 24 Hr 98.6 F-98.9 F 102-111 19-20 110-141/57-70 96-96 Constitutional: Yes: Calm, Diaphoresis, Mild Distress, Obese Eyes: Yes: Conjunctiva Clear, EOM Intact HENT: Yes: Atraumatic, Normocephalic Neck: Yes: Supple, Trachea Midline Cardiovascular: Yes: Tachycardia, S1, S2 Respiratory: Yes: Regular, CTA Bilaterally Gastrointestinal: Yes: Normal Bowel Sounds, Soft, Abdomen, Obese, Tenderness, Tenderness, Epigastrium (RUQ and +murphys). No: Ascites, Distention ...Rectal Exam: Yes: Deferred Renal/: No: CVA Tenderness - Left, CVA Tenderness - Right Musculoskeletal: No: Muscle Pain, Muscle Weakness Extremities: Yes: Other (right shoulder in a fixed sling). No: Cool, Cyanosis Wound/Incision: Yes: Clean/Dry, Well Approximated, Open to air (right shoudler) Neurological: Yes: Alert, Oriented Psychiatric: Yes: Alert, Oriented Labs: CBC, BMP 09/22/17 11:55 09/22/17 11:55 Imaging - Results Cat Scan: Report Reviewed, Image Reviewed (cholelithiasis with acute cholecystitis) EKG: Report Reviewed, Image Reviewed (sinus tach) Problem List - Problems (1) Calculous cholecystitis Assessment/Plan: 72 yo female MMP with Acute cholecystitis NPO and IVF hydration IV antibiotics Repeat labs Surgery 09/24, booked on the add-on schedule Discussed with patient risks, benefits and alternatives of laparoscopic possible open cholecystectomy, including but not limited to bleeding, infection , injury to adjacent structures, leak or injury, intraabdominal abscess, need for further procedures, ; alternatives include antibiotics, delayed or no surgery - risks of this include failure of nonoperative therapy, perforation, sepsis, recurrence, . Patient desires to proceed with operation - will take to OR for above. Informed consent signed for same. Code(s): K80.10 - CALCULUS OF GALLBLADDER W CHRONIC CHOLECYST W/O OBSTRUCTION Qualifiers: Cholecystitis acuity: acute Biliary obstruction: without biliary obstruction Qualified Code(s): K80.00 - Calculus of gallbladder with acute cholecystitis without obstruction (2) Obesity (BMI 30.0-34.9) Code(s): E66.9 - OBESITY, UNSPECIFIED (3) Gastric lymphoma Code(s): C85.93 - NON-HODGKIN LYMPHOMA, UNSP, INTRA-ABDOMINAL LYMPH NODES (4) Subacromial impingement of right shoulder Code(s): M75.41 - IMPINGEMENT SYNDROME OF RIGHT SHOULDER (5) Leukocytosis (leucocytosis) Code(s): D72.829 - ELEVATED WHITE BLOOD CELL COUNT, UNSPECIFIED
--- NOTE | 2017-09-22 16:22 | PN ---
Teaching Attending Note Name of Resident: Jameson Parker ATTENDING PHYSICIAN STATEMENT I saw and evaluated the patient. I reviewed the resident's note and discussed the case with the resident. I agree with the resident's findings and plan as documented. SUBJECTIVE: This is a 72 year old woman with a history of gastric lymphoma who comes to the ED complaining of epigastric and RUQ abdominal pain since 8pm on 09/19. The pain is associated with nausea and lack of appetite. She denies fever, chills, vomiting, melena, rectal bleeding, diarrhea, constipation, change in bowel habits. Her PCP, Dr. Ramos, prescribed Prilosec which has not provided any relief. On 08/29, she had right shoulder arthroscopy, subacromial decompression, rotator cuff repair. She denies taking ibuprofen. OBJECTIVE: Vital Signs Period Temp Pulse Resp BP Sys/Bellamy Pulse Ox Last 24 Hr 98.6 F-98.9 F 102-111 19-20 110-141/57-70 96-96 HEART: S1S2, tachycardic LUNGS: Clear ABDOMEN: Obese, soft, non-distended, (+) epigastric and RUQ tenderness, normal BS EXTREMITIES: No edema Laboratory Tests 09/22/17 09/22/17 09/22/17 11:55 11:55 11:55 WBC 15.3 H D RBC 4.28 Hgb 13.5 Hct 40.2 MCV 93.9 MCH 31.5 MCHC 33.6 RDW 13.3 Plt Count 308 MPV 8.3 Neutrophils % 82.2 D Lymphocytes % 8.6 D Monocytes % 7.6 Eosinophils % 1.3 D Basophils % 0.3 Sodium 135 L Potassium 4.0 Chloride 99 Carbon Dioxide 27 Anion Gap 9 BUN 17 Creatinine 0.8 Creat Clearance w eGFR > 60 Random Glucose 104 Calcium 9.0 Total Bilirubin 0.9 D AST 16 ALT 26 Alkaline Phosphatase 126 H Total Protein 7.3 Albumin 3.2 L Lipase 87 Urine Color Felicia Urine Appearance Slcloudy Urine pH 5.0 Ur Specific [place] 1.028 Urine Protein 2+ H Urine Glucose (UA) Negative Urine Ketones Negative Urine Blood Negative Urine Nitrite Negative Urine Bilirubin Negative Urine Urobilinogen 4.0 e.u/dl H Ur Leukocyte Esterase Negative Urine WBC (Auto) 3 Urine RBC (Auto) 14 Ur Epithelial Cells Many Urine Bacteria Rare Urine Mucus Many Home Medications Medication Instructions Recorded Omeprazole 40 mg PO DAILY 09/22/17 CT abd/pelvis: Cholelithiasis with gallbladder wall thickening and pericholecystic fat stranding, non-obstructing stones in mid pole of left kidney , hepatic steatosis ASSESSMENT AND PLAN: This is a 72 year old woman with a history of gastric lymphoma who presented to the ED with epigastric and RUQ abdominal pain x 2-3 days. 1. Sepsis secondary to acute cholecystitis - Levaquin, Flagyl given in ED - will continue - NPO - IV fluid - Check lactic acid - Morphine as needed for pain - Zofran as needed for nausea - Surgery consult 2. History of gastric lymphoma 3. Recent right shoulder arthroscopy, subacromial decompression, rotator cuff repair
[2017-09-22 18:11] VITALS: BMI 33.0
[2017-09-22] MEDS: morphine SULFATE 4 MG/ML VIAL IVPUSH PRN (18:27)
[2017-09-22 20:00] LABS: INR 1.32 (0.82-1.09); PROTHROMBIN TIME (PATIENT) 14.9 SEC (9.98-11.88)
[2017-09-22] MEDS: HEPARIN NA (PORCINE) 5,000 UNITS/ML 1ML VIAL SQ SCH (22:00)
[2017-09-23] MEDS: HEPARIN NA (PORCINE) 5,000 UNITS/ML 1ML VIAL SQ SCH ×3 (06:21→22:40)
[2017-09-23 09:01] LABS: BASO % 0.5 % (0-2.0); EOS % 5.7 % (0-4.5); HEMATOCRIT 32.5 % (32.4-45.2); HEMOGLOBIN 10.9 GM/dL (10.7-15.3); LYMPH % 10.9 % (8-40); MCH 31.5 pg (25.7-33.7); MCHC 33.5 g/dl (32.0-36.0); MEAN CELL VOLUME 93.9 fl (80-96); MEAN PLT VOLUME 8.4 fl (7.5-11.1); MONO % 7.1 % (3.8-10.2); NEUT % 75.8 % (42.8-82.8); PLATELET COUNT 285 K/MM3 (134-434); RBC 3.46 M/mm3 (3.60-5.2); RDW 13.1 % (11.6-15.6)
[2017-09-23 09:02] LABS: ALBUMIN 2.4 g/dl (3.4-5.0); ANION GAP 8 (8-16); BILIRUBIN,TOTAL 0.8 mg/dL (0.2-1.0); CALCIUM 8.1 mg/dL (8.5-10.1); CHLORIDE 106 mmol/L (98-107); CO2 23 mmol/L (21-32); CREATININE 0.6 mg/dL (0.55-1.02); GLUCOSE,RANDOM 92 mg/dL (74-106); SGOT/AST 18 U/L (15-37); SGPT/ALT 26 U/L (12-78); SODIUM 137 mmol/L (136-145); TOT PROT 5.7 g/dl (6.4-8.2)
[2017-09-23] MEDS: morphine SULFATE 4 MG/ML VIAL IVPUSH PRN (09:03)
[2017-09-23 09:05] LABS: ALK PHOS 130 U/L (45-117); BLOOD UREA NITROGEN 15 mg/dL (7-18)
[2017-09-23] MEDS: D5-1/2NS+20 MEQ KCL - 20 MEQ/1,000 ML INFUS.BAG IV SCH (11:34)
[2017-09-23] MEDS: PANTOPRAZOLE SODIUM 40 MG VIAL IVPUSH SCH (11:35)
--- NOTE | 2017-09-23 12:16 | PN ---
Physical Exam: SUBJECTIVE: Patient seen and examined. She continues to have abdominal pain. OBJECTIVE: Vital Signs Period Temp Pulse Resp BP Sys/Bellamy Pulse Ox Last 24 Hr 98 F-99.1 F 99-109 18-20 110-141/45-70 95-96 GENERAL: The patient is awake, alert, and fully oriented, in no acute distress. LUNGS: Breath sounds equal, clear to auscultation bilaterally, no wheezes, no crackles, no accessory muscle use. HEART: Regular rate and rhythm, S1, S2 without murmur, rub or gallop. ABDOMEN: Obese, soft, (+) RUQ/epigastric tenderness, nondistended, normoactive bowel sounds, no guarding, no rebound, no hepatosplenomegaly, no masses. EXTREMITIES: 2+ pulses, warm, well-perfused, no edema. Laboratory Results - last 24 hr 09/22/17 09/22/17 09/22/17 11:55 11:55 11:55 WBC 15.3 H D RBC 4.28 Hgb 13.5 Hct 40.2 MCV 93.9 MCH 31.5 MCHC 33.6 RDW 13.3 Plt Count 308 MPV 8.3 Neutrophils % 82.2 D Lymphocytes % 8.6 D Monocytes % 7.6 Eosinophils % 1.3 D Basophils % 0.3 PT with INR INR Sodium 135 L Potassium 4.0 Chloride 99 Carbon Dioxide 27 Anion Gap 9 BUN 17 Creatinine 0.8 Creat Clearance w eGFR > 60 Random Glucose 104 Lactic Acid Calcium 9.0 Total Bilirubin 0.9 D AST 16 ALT 26 Alkaline Phosphatase 126 H Total Protein 7.3 Albumin 3.2 L Lipase 87 Urine Color Felicia Urine Appearance Slcloudy Urine pH 5.0 Ur Specific [place] 1.028 Urine Protein 2+ H Urine Glucose (UA) Negative Urine Ketones Negative Urine Blood Negative Urine Nitrite Negative Urine Bilirubin Negative Urine Urobilinogen 4.0 e.u/dl H Ur Leukocyte Esterase Negative Urine WBC (Auto) 3 Urine RBC (Auto) 14 Ur Epithelial Cells Many Urine Bacteria Rare Urine Mucus Many Blood Type Antibody Screen 09/22/17 09/22/17 09/22/17 18:23 19:30 19:30 WBC RBC Hgb Hct MCV MCH MCHC RDW Plt Count MPV Neutrophils % Lymphocytes % Monocytes % Eosinophils % Basophils % PT with INR 14.90 H INR 1.32 H Sodium Potassium Chloride Carbon Dioxide Anion Gap BUN Creatinine Creat Clearance w eGFR Random Glucose Lactic Acid 1.0 Calcium Total Bilirubin AST ALT Alkaline Phosphatase Total Protein Albumin Lipase Urine Color Urine Appearance Urine pH Ur Specific [place] Urine Protein Urine Glucose (UA) Urine Ketones Urine Blood Urine Nitrite Urine Bilirubin Urine Urobilinogen Ur Leukocyte Esterase Urine WBC (Auto) Urine RBC (Auto) Ur Epithelial Cells Urine Bacteria Urine Mucus Blood Type O POSITIVE Antibody Screen Negative 09/23/17 09/23/17 07:00 07:00 WBC 12.0 H RBC 3.46 L Hgb 10.9 D Hct 32.5 D MCV 93.9 MCH 31.5 MCHC 33.5 RDW 13.1 Plt Count 285 MPV 8.4 Neutrophils % 75.8 Lymphocytes % 10.9 D Monocytes % 7.1 Eosinophils % 5.7 H D Basophils % 0.5 PT with INR INR Sodium 137 Potassium 4.0 Chloride 106 Carbon Dioxide 23 Anion Gap 8 BUN 15 Creatinine 0.6 Creat Clearance w eGFR > 60 Random Glucose 92 Lactic Acid Calcium 8.1 L Total Bilirubin 0.8 AST 18 ALT 26 Alkaline Phosphatase 130 H Total Protein 5.7 L Albumin 2.4 L Lipase Urine Color Urine Appearance Urine pH Ur Specific [place] Urine Protein Urine Glucose (UA) Urine Ketones Urine Blood Urine Nitrite Urine Bilirubin Urine Urobilinogen Ur Leukocyte Esterase Urine WBC (Auto) Urine RBC (Auto) Ur Epithelial Cells Urine Bacteria Urine Mucus Blood Type Antibody Screen Active Medications Generic Name Dose Route Start Last Admin Trade Name Freq PRN Reason Stop Dose Admin Heparin Sodium (Porcine) 5,000 unit 09/22/17 22:00 09/23/17 06:21 Heparin - SQ Not Given TID TRACEY Potassium Chloride/Dextrose/Sod Cl 20 meq in 1,000 mls @ 83 mls/hr 09/23/17 10 :00 09/23/17 11:34 D5-1/2ns+20 Meq Kcl - IV 83 mls/hr ASDIR TRACEY Administration Morphine Sulfate 1 mg 09/22/17 15:56 09/23/17 09:03 Morphine Sulfate IVPUSH 1 mg Q4H PRN Administration PAIN LEVEL 6-10 Ondansetron HCl 4 mg 09/22/17 15:56 Zofran Injection IVPUSH Q6H PRN NAUSEA Pantoprazole Sodium 40 mg 09/23/17 10:00 09/23/17 11:35 Protonix Iv IVPUSH 40 mg DAILY TRACEY Administration ASSESSMENT/PLAN: This is a 72 year old woman with a history of gastric lymphoma who presented to the ED with epigastric and RUQ abdominal pain x 2-3 days. 1. Sepsis secondary to acute cholecystitis - Afebrile. Tachycardia and leukocytosis improving - Continue Levaquin, Flagyl, IV fluid, NPO, morphine as needed for pain, Zofran as needed for nausea - Plan for lap opal tomorrow 2. History of gastric lymphoma 3. Recent right shoulder arthroscopy, subacromial decompression, rotator cuff repair Visit type - Emergency Visit Emergency Visit: Yes ED Registration Date: 09/22/17 Care time: The patient presented to the Emergency Department on the above date and was hospitalized for further evaluation of their emergent condition. - New Patient This patient is new to me today: No - Critical Care Critical Care patient: No - Discharge Referral Referred to [facility] Med P.C.: No
[2017-09-23] MEDS ORDERED: PIPERACIL/TAZOB 3.375 GM 3.375 GM/50 ML PREMIX IVPB ONE (12:28)
--- NOTE | 2017-09-23 12:32 | PN ---
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 stable overnight. reports persistent abdominal pain. - Current Medication List Current Medications: Active Medications Heparin Sodium (Porcine) (Heparin -) 5,000 unit SQ TID [facility] Last Admin: 09/23/17 06:21 Dose: Not Given Potassium Chloride/Dextrose/Sod Cl (D5-1/2ns+20 Meq Kcl -) 20 meq in 1,000 mls @ 83 mls/hr IV ASDIR [facility] Last Admin: 09/23/17 11:34 Dose: 83 mls/hr Metronidazole (Flagyl 500mg Premixed Ivpb -) 500 mg in 100 mls @ 100 mls/hr IVPB Q8H-IV TRACEY Levofloxacin (Levaquin 500 Mg Premixed Ivpb -) 500 mg in 100 mls @ 100 mls/hr IVPB DAILY [facility] Morphine Sulfate (Morphine Sulfate) 1 mg IVPUSH Q4H PRN PRN Reason: PAIN LEVEL 6-10 Last Admin: 09/23/17 09:03 Dose: 1 mg Ondansetron HCl (Zofran Injection) 4 mg IVPUSH Q6H PRN PRN Reason: NAUSEA Pantoprazole Sodium (Protonix Iv) 40 mg IVPUSH DAILY [facility] Last Admin: 09/23/17 11:35 Dose: 40 mg - Objective Vital Signs: Vital Signs Temperature 98.8 F 09/23/17 09:12 Pulse Rate 99 H 09/23/17 09:12 Respiratory Rate 20 09/23/17 09:12 Blood Pressure 111/55 09/23/17 09:12 O2 Sat by Pulse Oximetry (%) 95 09/22/17 18:41 Vital Signs Period Temp Pulse Resp BP Sys/Bellamy Pulse Ox Last 24 Hr 98 F-99.1 F 99-109 18-20 110-141/45-70 95-96 Constitutional: Yes: No Distress, Calm, Obese Eyes: Yes: Conjunctiva Clear, EOM Intact HENT: Yes: Atraumatic, Normocephalic Neck: Yes: Supple, Trachea Midline Cardiovascular: Yes: Regular Rate and Rhythm, S1, S2. No: Murmur Respiratory: Yes: Regular, CTA Bilaterally Gastrointestinal: Yes: Normal Bowel Sounds, Soft, Tenderness (RUQ - murphys), Tenderness, Epigastrium. No: Tenderness, Rebound ...Rectal Exam: Yes: Deferred Genitourinary: No: CVA Tenderness - Left, CVA Tenderness - Right Extremities: No: Cool, Cyanosis Integumentary: No: Jaundice Neurological: Yes: Alert, Oriented Psychiatric: Yes: Alert, Oriented Labs: CBC, BMP 09/23/17 07:00 09/23/17 07:00 INR, PTT INR 1.32 (0.82-1.09) H 09/22/17 19:30 Problem List - Problems (1) Calculous cholecystitis Assessment/Plan: 72 yo female MMP with Acute cholecystitis NPO and IVF hydration IV antibiotics Repeat labs Surgery 09/24, booked on the add-on schedule Discussed with patient risks, benefits and alternatives of laparoscopic possible open cholecystectomy, including but not limited to bleeding, infection , injury to adjacent structures, leak or injury, intraabdominal abscess, need for further procedures, ; alternatives include antibiotics, delayed or no surgery - risks of this include failure of nonoperative therapy, perforation, sepsis, recurrence, . Patient desires to proceed with operation - will take to OR for above. Informed consent signed for same. Code(s): K80.10 - CALCULUS OF GALLBLADDER W CHRONIC CHOLECYST W/O OBSTRUCTION Qualifiers: Cholecystitis acuity: acute Biliary obstruction: without biliary obstruction Qualified Code(s): K80.00 - Calculus of gallbladder with acute cholecystitis without obstruction (2) Obesity (BMI 30.0-34.9) Code(s): E66.9 - OBESITY, UNSPECIFIED (3) Gastric lymphoma Code(s): C85.93 - NON-HODGKIN LYMPHOMA, UNSP, INTRA-ABDOMINAL LYMPH NODES (4) Subacromial impingement of right shoulder Code(s): M75.41 - IMPINGEMENT SYNDROME OF RIGHT SHOULDER (5) Leukocytosis (leucocytosis) Code(s): D72.829 - ELEVATED WHITE BLOOD CELL COUNT, UNSPECIFIED
[2017-09-23] MEDS ORDERED: KETOROLAC TROMETHAMINE 30 MG/1 ML VIAL IVPUSH ONE (12:34)
--- NOTE | 2017-09-23 13:21 | CON.ID ---
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 According to the patient she started ahving pain on sun took omperazole did not improve then her doctors office was closed .pain was severe and sat her PCP told her to come to the ER. patiewnt was worked up in the er and found to have choleycystitis and leukocytosis. patient planned to be taken to the operating room tomorrow patient received flagyl and levaquin. she continues to have pain in the abdomen which is now localized to the rt upper quadrant. denies any other symptoms daughter in room - History Source History Provided By: Patient, Family Member Limitations to Obtaining History: No Limitations - Past Medical History ...: No Additional Medical History: obesity - Alcohol/Substance Use Hx Alcohol Use: No - Smoking History Smoking history: Never smoked Have you smoked in the past 12 months: No Home Medications - Allergies Allergies/Adverse Reactions: Allergies Allergy/AdvReac Type Severity Reaction Status Date / Time No Known Drug Allergies Allergy Verified 09/22/17 10:32 - Home Medications Home Medications: Ambulatory Orders Acetaminophen [Tylenol] 650 mg PO Q4H PRN 09/22/17 Omeprazole 40 mg PO DAILY 09/22/17 Review of Systems - Review of Systems Constitutional: reports: No Symptoms Eyes: reports: No Symptoms HENT: reports: No Symptoms Neck: reports: No Symptoms Cardiovascular: reports: No Symptoms Respiratory: reports: No Symptoms Gastrointestinal: reports: Abdominal Pain Genitourinary: reports: No Symptoms Musculoskeletal: reports: No Symptoms Integumentary: reports: No Symptoms Neurological: reports: No Symptoms Endocrine: reports: No Symptoms Hematology/Lymphatic: reports: No Symptoms Psychiatric: reports: No Symptoms Physical Exam Vital Signs: Vital Signs Temperature 98.8 F 09/23/17 09:12 Pulse Rate 99 H 09/23/17 09:12 Respiratory Rate 20 09/23/17 09:12 Blood Pressure 111/55 09/23/17 09:12 O2 Sat by Pulse Oximetry (%) 95 09/22/17 18:41 Constitutional: Yes: Well Nourished, Obese Eyes: Yes: Conjunctiva Clear HENT: Yes: Atraumatic Neck: Yes: Supple, Trachea Midline Cardiovascular: Yes: Regular Rate and Rhythm Respiratory: Yes: Regular, CTA Bilaterally Gastrointestinal: Yes: Soft, Tenderness (ruq). No: Tenderness, Rebound Musculoskeletal: Yes: WNL Extremities: Yes: Other (rt shoulder surgery,hand in sling) Integumentary: Yes: WNL Neurological: Yes: Alert, Oriented Psychiatric: Yes: Alert, Oriented Labs: CBC, BMP 09/23/17 07:00 09/23/17 07:00 Imaging - Results Chest X-ray: Report Reviewed, Image Reviewed Cat Scan: Report Reviewed, Image Reviewed Ultrasound: Report Reviewed, Image Reviewed Assessment/Plan Problem List - Problems (1) Calculous cholecystitis Code(s): K80.10 - CALCULUS OF GALLBLADDER W CHRONIC CHOLECYST W/O OBSTRUCTION Qualifiers: Cholecystitis acuity: acute Biliary obstruction: without biliary obstruction Qualified Code(s): K80.00 - Calculus of gallbladder with acute cholecystitis without obstruction (2) Obesity (BMI 30.0-34.9) Code(s): E66.9 - OBESITY, UNSPECIFIED (3) Gastric lymphoma Code(s): C85.93 - NON-HODGKIN LYMPHOMA, UNSP, INTRA-ABDOMINAL LYMPH NODES (4) Subacromial impingement of right shoulder Code(s): M75.41 - IMPINGEMENT SYNDROME OF RIGHT SHOULDER (5) Leukocytosis (leucocytosis) Code(s): D72.829 - ELEVATED WHITE BLOOD CELL COUNT, UNSPECIFIED plan will change abx to zosyn surgery tomorrow pain mgmt hydration rest as per the team
[2017-09-23] MEDS ORDERED: DEXTROSE 5%-WATER - 50 ML IVPB ONE ×2 (13:41→18:00)
[2017-09-23] MEDS ORDERED: PIPERACILLIN/TAZOBACTAM 3.375 GM VIAL IVPB ONE ×2 (13:41→18:00)
[2017-09-23] MEDS: PIPERACILLIN/TAZOB 3.375 GM 3.375 GM in DEXTROSE 5%-WATER - 50 ML IVPB SCH ×2 (13:46→18:06)
[2017-09-24] MEDS ORDERED: PIPERACILLIN/TAZOBACTAM 3.375 GM VIAL IVPB ONE ×3 (01:27→17:29)
[2017-09-24] MEDS ORDERED: DEXTROSE 5%-WATER - 50 ML IVPB ONE ×3 (01:27→17:30)
[2017-09-24] MEDS: PIPERACILLIN/TAZOB 3.375 GM 3.375 GM in DEXTROSE 5%-WATER - 50 ML IVPB SCH ×3 (01:28→17:43)
[2017-09-24] MEDS: D5-1/2NS+20 MEQ KCL - 20 MEQ/1,000 ML INFUS.BAG IV SCH ×4 (01:28→23:04)
[2017-09-24] MEDS: HEPARIN NA (PORCINE) 5,000 UNITS/ML 1ML VIAL SQ SCH ×3 (06:35→22:59)
[2017-09-24 07:58] LABS: ALBUMIN 2.4 g/dl (3.4-5.0); ANION GAP 8 (8-16); BLOOD UREA NITROGEN 13 mg/dL (7-18); CALCIUM 8.2 mg/dL (8.5-10.1); CHLORIDE 107 mmol/L (98-107); CO2 24 mmol/L (21-32); CREATININE 0.7 mg/dL (0.55-1.02); GLUCOSE,RANDOM 119 mg/dL (74-106); POTASSIUM 4.1 mmol/L (3.5-5.1); SGOT/AST 25 U/L (15-37); SGPT/ALT 31 U/L (12-78); SODIUM 139 mmol/L (136-145)
[2017-09-24 08:00] LABS: ALK PHOS 166 U/L (45-117); BILIRUBIN,TOTAL 0.6 mg/dL (0.2-1.0); TOT PROT 5.8 g/dl (6.4-8.2)
[2017-09-24 08:38] LABS: BASO % 0.8 % (0-2.0); EOS % 16.1 % (0-4.5); HEMATOCRIT 32.7 % (32.4-45.2); LYMPH % 11.8 % (8-40); MCH 31.5 pg (25.7-33.7); MCHC 33.6 g/dl (32.0-36.0); MEAN CELL VOLUME 93.6 fl (80-96); MEAN PLT VOLUME 8.2 fl (7.5-11.1); MONO % 7.5 % (3.8-10.2); NEUT % 63.8 % (42.8-82.8); PLATELET COUNT 286 K/MM3 (134-434); RDW 13.2 % (11.6-15.6); WHITE BLOOD COUNT 9.1 K/mm3 (4.0-10.0)
[2017-09-24] MEDS: PANTOPRAZOLE SODIUM 40 MG VIAL IVPUSH SCH (10:22)
--- NOTE | 2017-09-24 10:35 | PN ---
Physical Exam: SUBJECTIVE: Patient seen and examined No acute events overnight. Patient feels well this morning. Has mild abdominal pain. Awaiting OR. OBJECTIVE: Vital Signs Period Temp Pulse Resp BP Sys/Bellamy Pulse Ox Last 24 Hr 97.7 F-99.8 F 91-99 20-20 104-153/59-82 95 GENERAL: Awake, alert, and fully oriented, in no acute distress. HEAD: Normal with no signs of trauma. EYES: Extraocular movements intact, sclera anicteric, conjunctiva clear. No lid lag. EARS, NOSE, THROAT: Ears normal, nares patent, oropharynx clear without exudates. NECK: Normal range of motion, supple without lymphadenopathy, JVD, or masses. LUNGS: Breath sounds equal, clear to auscultation bilaterally. No wheezes, and no crackles. No accessory muscle use. HEART: Tachycardic, Regular rhythm, normal S1 and S2 without murmur, rub or gallop. ABDOMEN: Soft, +Epigastric tenderness, RUQ tenderness, +Thurman's sign, not distended, normoactive bowel sounds, no guarding, no rebound, no masses. No hepatomegaly or splenomegaly. MUSCULOSKELETAL: Normal range of motion at all joints. No bony deformities or tenderness. No CVA tenderness. UPPER EXTREMITIES: 2+ pulses, warm, well-perfused. No cyanosis. No clubbing. No peripheral edema. LOWER EXTREMITIES: 2+ pulses, warm, well-perfused. No calf tenderness. No peripheral edema. NEUROLOGICAL: Cranial nerves II-XII intact. Normal speech. Normal gait. PSYCHIATRIC: Cooperative. Good eye contact. Appropriate mood and affect. SKIN: Warm, dry, normal turgor, no rashes or lesions noted, normal capillary refill. Laboratory Results - last 24 hr 09/24/17 09/24/17 06:30 06:30 WBC 9.1 RBC 3.50 L Hgb 11.0 Hct 32.7 MCV 93.6 MCH 31.5 MCHC 33.6 RDW 13.2 Plt Count 286 MPV 8.2 Neutrophils % 63.8 Lymphocytes % 11.8 Monocytes % 7.5 Eosinophils % 16.1 H D Basophils % 0.8 Sodium 139 Potassium 4.1 Chloride 107 Carbon Dioxide 24 Anion Gap 8 BUN 13 Creatinine 0.7 Creat Clearance w eGFR > 60 Random Glucose 119 H Calcium 8.2 L Total Bilirubin 0.6 D AST 25 ALT 31 Alkaline Phosphatase 166 H Total Protein 5.8 L Albumin 2.4 L Active Medications Generic Name Dose Route Start Last Admin Trade Name Freq PRN Reason Stop Dose Admin Heparin Sodium (Porcine) 5,000 unit 09/22/17 22:00 09/24/17 06:35 Heparin - SQ Not Given TID TRACEY Potassium Chloride/Dextrose/Sod Cl 20 meq in 1,000 mls @ 83 mls/hr 09/23/17 10 :00 09/24/17 10:22 D5-1/2ns+20 Meq Kcl - IV Not Given ASDIR TRACEY Piperacillin Sod/Tazobactam 50 mls @ 100 mls/hr 09/23/17 13:45 09/24/17 10:20 Sod 3.375 gm/ Dextrose IVPB 100 mls/hr Q8H-IV TRACEY Administration Protocol Morphine Sulfate 1 mg 09/22/17 15:56 09/23/17 09:03 Morphine Sulfate IVPUSH 1 mg Q4H PRN Administration PAIN LEVEL 6-10 Ondansetron HCl 4 mg 09/22/17 15:56 Zofran Injection IVPUSH Q6H PRN NAUSEA Pantoprazole Sodium 40 mg 09/23/17 10:00 09/24/17 10:22 Protonix Iv IVPUSH 40 mg DAILY TRACEY Administration ASSESSMENT/PLAN: 72 year old F with 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 Waldron -ID consult, Dr. Veloz #Gastric lymphoma, in remission -f/u with oncology outpatient #FEN/GI -IVF @ 83 cc/hr -wnl -npo #PPx -Heparin 5000 sq q8h -protonix 40 iv daily Dispo: pending OR Visit type - Emergency Visit Emergency Visit: Yes ED Registration Date: 09/22/17 Care time: The patient presented to the Emergency Department on the above date and was hospitalized for further evaluation of their emergent condition. - New Patient This patient is new to me today: No - Critical Care Critical Care patient: No
--- NOTE | 2017-09-24 18:43 | PN ---
Teaching Attending Note Name of Resident: Jameson Parker ATTENDING PHYSICIAN STATEMENT I saw and evaluated the patient. I reviewed the resident's note and discussed the case with the resident. I agree with the resident's findings and plan as documented. SUBJECTIVE: OBJECTIVE: Vital Signs Period Temp Pulse Resp BP Sys/Bellamy Pulse Ox Last 24 Hr 98 F-99.5 F 90-97 18-20 124-144/59-94 95 HEART: S1S2, RRR LUNGS: Clear ABDOMEN: Obese, soft, (+) RUQ/epigastric tenderness, normal BS EXTREMITIES: No edema Laboratory Results - last 24 hr 09/24/17 09/24/17 06:30 06:30 WBC 9.1 RBC 3.50 L Hgb 11.0 Hct 32.7 MCV 93.6 MCH 31.5 MCHC 33.6 RDW 13.2 Plt Count 286 MPV 8.2 Neutrophils % 63.8 Lymphocytes % 11.8 Monocytes % 7.5 Eosinophils % 16.1 H D Basophils % 0.8 Sodium 139 Potassium 4.1 Chloride 107 Carbon Dioxide 24 Anion Gap 8 BUN 13 Creatinine 0.7 Creat Clearance w eGFR > 60 Random Glucose 119 H Calcium 8.2 L Total Bilirubin 0.6 D AST 25 ALT 31 Alkaline Phosphatase 166 H Total Protein 5.8 L Albumin 2.4 L Current Medications Generic Name Dose Route Start Last Admin Trade Name Freq PRN Reason Stop Dose Admin Heparin Sodium (Porcine) 5,000 unit 09/22/17 22:00 09/24/17 14:56 Heparin - SQ Not Given TID TRACEY Potassium Chloride/Dextrose/Sod Cl 20 meq in 1,000 mls @ 83 mls/hr 09/23/17 10 :00 09/24/17 10:22 D5-1/2ns+20 Meq Kcl - IV Not Given ASDIR TRACEY Piperacillin Sod/Tazobactam 50 mls @ 100 mls/hr 09/23/17 13:45 09/24/17 17:43 Sod 3.375 gm/ Dextrose IVPB 100 mls/hr Q8H-IV TRACEY Administration Protocol Morphine Sulfate 1 mg 09/22/17 15:56 09/23/17 09:03 Morphine Sulfate IVPUSH 1 mg Q4H PRN Administration PAIN LEVEL 6-10 Ondansetron HCl 4 mg 09/22/17 15:56 Zofran Injection IVPUSH Q6H PRN NAUSEA Pantoprazole Sodium 40 mg 09/23/17 10:00 09/24/17 10:22 Protonix Iv IVPUSH 40 mg DAILY TRACEY Administration ASSESSMENT AND PLAN: This is a 72 year old woman with a history of gastric lymphoma who presented to the ED with epigastric and RUQ abdominal pain x 2-3 days. 1. Sepsis secondary to acute cholecystitis - Afebrile - Tachycardia and leukocytosis improved - Continue Zosyn, IV fluid, NPO, morphine as needed for pain, Zofran as needed for nausea - Plan for lap opal today 2. History of gastric lymphoma 3. Recent right shoulder arthroscopy, subacromial decompression, rotator cuff repair
[2017-09-24] MEDS ORDERED: ROCURONIUM BROMIDE 50 MG/5 ML VIAL ONE (18:48)
[2017-09-24] MEDS ORDERED: PROPOFOL 20 ML ONE (18:48)
[2017-09-24] MEDS ORDERED: DEXAMETHASONE SOD PHOSPHATE 4 MG/1 ML VIAL ONE (19:12)
[2017-09-24] MEDS ORDERED: METOPROLOL TARTRATE 5 MG/5 ML VIAL ONE (19:21)
[2017-09-24] MEDS ORDERED: BUPIVACAINE HCL/PF 0.5% (5MG/ML) 10 ML VIAL IJ ONE (19:25)
[2017-09-24] MEDS ORDERED: NEOSTIGMINE METHYLSULFATE 0.5 MG/ML - 10 ML MDV ONE (20:15)
--- NOTE | 2017-09-24 20:33 | OP ---
Operative Note - Note: Operative Date: 09/24/17 Pre-Operative Diagnosis: acute cholecytitis Operation: laparoscopic cholecystectomy Findings: inflammed and distended gallbladder. Intrahepatic gallbladder with dense adhesions to the liver and omentum. critical view identified. Post-Operative Diagnosis: Other (acute gangrenous cholecystitis, hydrops gallbladder) Surgeon: [place] Waldron Copyman: Meredith Valdez Anesthesiologist/[employer] OUTREACH WORKER: Alaina Sanchez Anesthesia: General, Local (0.5% marcaine ) Estimated Blood Loss (mls): 150 Drains & Tubes with Location: PERRY size 10 flat RUQ Fluid Volume Replaced (mls): 1,000 Operative Report Dictated: Yes
[2017-09-24] MEDS ORDERED: IBUPROFEN 600 MG TABLET (FP) PO PRN ×2 (20:36→21:24)
[2017-09-24] MEDS ORDERED: ACETAMINOPHEN 325 MG TABLET (FP) PO PRN ×2 (20:36→21:24)
[2017-09-24] MEDS ORDERED: ONDANSETRON 4 MG/2 ML VIAL IVPUSH PRN (21:24)
--- NOTE | 2017-09-24 21:26 | PN ---
Progress Note, Physician History of Present Illness: patient still with abd pain awaiting surgery - Objective Vital Signs: Vital Signs Temperature 99.5 F 09/24/17 21:02 Pulse Rate 94 H 09/24/17 21:02 Respiratory Rate 20 09/24/17 21:02 Blood Pressure 144/94 09/24/17 21:02 O2 Sat by Pulse Oximetry (%) 98 09/24/17 21:02 Constitutional: Yes: Calm, Mild Distress, Obese Eyes: Yes: Conjunctiva Clear Cardiovascular: Yes: Regular Rate and Rhythm Respiratory: Yes: Regular, CTA Bilaterally Gastrointestinal: Yes: Soft, Tenderness (ruq) Musculoskeletal: Yes: WNL Extremities: Yes: WNL Neurological: Yes: Alert, Oriented Psychiatric: Yes: Alert, Oriented Labs: CBC, BMP 09/24/17 06:30 09/24/17 06:30 INR, PTT INR 1.32 (0.82-1.09) H 09/22/17 19:30 Assessment/Plan Problem List - Problems (1) Calculous cholecystitis Code(s): K80.10 - CALCULUS OF GALLBLADDER W CHRONIC CHOLECYST W/O OBSTRUCTION Qualifiers: Cholecystitis acuity: acute Biliary obstruction: without biliary obstruction Qualified Code(s): K80.00 - Calculus of gallbladder with acute cholecystitis without obstruction (2) Obesity (BMI 30.0-34.9) Code(s): E66.9 - OBESITY, UNSPECIFIED (3) Gastric lymphoma Code(s): C85.93 - NON-HODGKIN LYMPHOMA, UNSP, INTRA-ABDOMINAL LYMPH NODES (4) Subacromial impingement of right shoulder Code(s): M75.41 - IMPINGEMENT SYNDROME OF RIGHT SHOULDER (5) Leukocytosis (leucocytosis) Code(s): D72.829 - ELEVATED WHITE BLOOD CELL COUNT, UNSPECIFIED plan continue abx awaiting for surgery abx will depend on surgery rest as per surgical team
[2017-09-24] MEDS: morphine SULFATE 4 MG/ML VIAL IVPUSH PRN (22:57)
[2017-09-25] MEDS ORDERED: PIPERACILLIN/TAZOBACTAM 3.375 GM VIAL IVPB ONE ×4 (00:57→18:20)
[2017-09-25] MEDS ORDERED: DEXTROSE 5%-WATER - 50 ML IVPB ONE ×4 (00:57→18:20)
[2017-09-25] MEDS: PIPERACILLIN/TAZOB 3.375 GM 3.375 GM in DEXTROSE 5%-WATER - 50 ML IVPB SCH ×3 (02:10→18:35)
[2017-09-25] MEDS: morphine SULFATE 4 MG/ML VIAL IVPUSH PRN (06:23)
[2017-09-25] MEDS: HEPARIN NA (PORCINE) 5,000 UNITS/ML 1ML VIAL SQ SCH ×3 (06:24→21:02)
[2017-09-25 08:09] LABS: BASO % 0.1 % (0-2.0); HEMATOCRIT 32.7 % (32.4-45.2); HEMOGLOBIN 11.1 GM/dL (10.7-15.3); LYMPH % 7.2 % (8-40); MCH 31.6 pg (25.7-33.7); MCHC 33.9 g/dl (32.0-36.0); MEAN CELL VOLUME 93.4 fl (80-96); MONO % 5.7 % (3.8-10.2); PLATELET COUNT 325 K/MM3 (134-434); WHITE BLOOD COUNT 9.7 K/mm3 (4.0-10.0)
[2017-09-25 08:25] LABS: CHLORIDE 104 mmol/L (98-107); POTASSIUM 4.3 mmol/L (3.5-5.1); SODIUM 137 mmol/L (136-145)
[2017-09-25 08:38] LABS: ALBUMIN 2.4 g/dl (3.4-5.0); ALK PHOS 192 U/L (45-117); ANION GAP 8 (8-16); BILIRUBIN,TOTAL 0.4 mg/dL (0.2-1.0); BLOOD UREA NITROGEN 10 mg/dL (7-18); CALCIUM 8.4 mg/dL (8.5-10.1); CO2 25 mmol/L (21-32); CREATININE 0.6 mg/dL (0.55-1.02); GLUCOSE,RANDOM 168 mg/dL (74-106); SGOT/AST 53 U/L (15-37); SGPT/ALT 55 U/L (12-78); TOT PROT 5.9 g/dl (6.4-8.2)
[2017-09-25] MEDS: PANTOPRAZOLE SODIUM 40 MG VIAL IVPUSH SCH (11:05)
[2017-09-25] MEDS: POLYETHYLENE GLYCOL 3350 119 GM BTL PO SCH (11:07)
--- NOTE | 2017-09-25 13:15 | PN ---
Progress Note, Physician History of Present Illness: patient doing well some post operative pain drainage tube in place - Current Medication List Current Medications: Active Medications Acetaminophen (Tylenol -) 650 mg PO Q6H PRN PRN Reason: PAIN LEVEL 1 - 3 Heparin Sodium (Porcine) (Heparin -) 5,000 unit SQ TID [facility] Last Admin: 09/25/17 06:24 Dose: 5,000 unit Potassium Chloride/Dextrose/Sod Cl (D5-1/2ns+20 Meq Kcl -) 20 meq in 1,000 mls @ 83 mls/hr IV ASDIR [facility] Last Admin: 09/24/17 23:04 Dose: 83 mls/hr Piperacillin Sod/Tazobactam (Sod 3.375 gm/ Dextrose) 50 mls @ 100 mls/hr IVPB Q8H-IV TRACEY PRN Reason: Protocol Last Admin: 09/25/17 11:06 Dose: 100 mls/hr Ibuprofen (Motrin -) 600 mg PO Q6H PRN PRN Reason: PAIN LEVEL 4 - 6 Last Admin: 09/25/17 11:04 Dose: 600 mg Morphine Sulfate (Morphine Sulfate) 1 mg IVPUSH Q4H PRN PRN Reason: PAIN LEVEL 7 - 10 Last Admin: 09/25/17 06:23 Dose: 1 mg Ondansetron HCl (Zofran Injection) 4 mg IVPUSH Q6H PRN PRN Reason: NAUSEA Pantoprazole Sodium (Protonix Iv) 40 mg IVPUSH DAILY [facility] Last Admin: 09/25/17 11:05 Dose: 40 mg Polyethylene Glycol (Miralax (For Daily Use) -) 17 gm PO DAILY [facility] Last Admin: 09/25/17 11:07 Dose: 17 grams - Objective Vital Signs: Vital Signs Temperature 99.2 F 09/25/17 12:31 Pulse Rate 91 H 09/25/17 12:31 Respiratory Rate 20 09/25/17 12:31 Blood Pressure 133/67 09/25/17 12:31 O2 Sat by Pulse Oximetry (%) 97 09/25/17 01:55 Constitutional: Yes: No Distress, Calm, Obese Cardiovascular: Yes: Regular Rate and Rhythm Respiratory: Yes: Regular, CTA Bilaterally Gastrointestinal: Yes: Normal Bowel Sounds, Soft, Other (drain in place) Musculoskeletal: Yes: WNL Extremities: Yes: WNL Wound/Incision: Yes: Draining (in drainage tube) Neurological: Yes: Alert, Oriented Psychiatric: Yes: Alert, Oriented Labs: CBC, BMP 09/25/17 06:15 09/25/17 06:15 INR, PTT INR 1.32 (0.82-1.09) H 09/22/17 19:30 Assessment/Plan Problem List - Problems (1) Calculous cholecystitis Code(s): K80.10 - CALCULUS OF GALLBLADDER W CHRONIC CHOLECYST W/O OBSTRUCTION Qualifiers: Cholecystitis acuity: acute Biliary obstruction: without biliary obstruction Qualified Code(s): K80.00 - Calculus of gallbladder with acute cholecystitis without obstruction (2) Obesity (BMI 30.0-34.9) Code(s): E66.9 - OBESITY, UNSPECIFIED (3) Gastric lymphoma Code(s): C85.93 - NON-HODGKIN LYMPHOMA, UNSP, INTRA-ABDOMINAL LYMPH NODES (4) Subacromial impingement of right shoulder Code(s): M75.41 - IMPINGEMENT SYNDROME OF RIGHT SHOULDER (5) Leukocytosis (leucocytosis) Code(s): D72.829 - ELEVATED WHITE BLOOD CELL COUNT, UNSPECIFIED plan continue abx will discuss with surgery patient still with low grade in 99 rest continue current mgmt
[2017-09-25] MEDS ORDERED: oxyCODONE HCL 5 MG TABLET PO ONE (13:16)
--- NOTE | 2017-09-25 16:18 | PN ---
Physical Exam: SUBJECTIVE: Patient seen and examined Patient post op day 1 s/p lap opal. Mild abdominal pain. Not passing gas. Tolerating food without nausea/vomiting. OBJECTIVE: Vital Signs Period Temp Pulse Resp BP Sys/Bellamy Pulse Ox Last 24 Hr 98 F-100.3 F 81-104 16-26 126-160/49-94 97-100 GENERAL: Awake, alert, and fully oriented, in no acute distress. HEAD: Normal with no signs of trauma. EYES: Extraocular movements intact, sclera anicteric, conjunctiva clear. No lid lag. EARS, NOSE, THROAT: Ears normal, nares patent, oropharynx clear without exudates. NECK: Normal range of motion, supple without lymphadenopathy, JVD, or masses. LUNGS: Breath sounds equal, clear to auscultation bilaterally. No wheezes, and no crackles. No accessory muscle use. HEART: Tachycardic, Regular rhythm, normal S1 and S2 without murmur, rub or gallop. ABDOMEN: Soft, +Epigastric tenderness, RUQ tenderness, +Thurman's sign, not distended, normoactive bowel sounds, no guarding, no rebound, no masses. No hepatomegaly or splenomegaly. +Drain in place MUSCULOSKELETAL: Normal range of motion at all joints. No bony deformities or tenderness. No CVA tenderness. UPPER EXTREMITIES: 2+ pulses, warm, well-perfused. No cyanosis. No clubbing. No peripheral edema. LOWER EXTREMITIES: 2+ pulses, warm, well-perfused. No calf tenderness. No peripheral edema. NEUROLOGICAL: Cranial nerves II-XII intact. Normal speech. Normal gait. PSYCHIATRIC: Cooperative. Good eye contact. Appropriate mood and affect. SKIN: Warm, dry, normal turgor, no rashes or lesions noted, normal capillary refill. Laboratory Results - last 24 hr 09/25/17 09/25/17 06:15 06:15 WBC 9.7 RBC 3.50 L Hgb 11.1 Hct 32.7 MCV 93.4 MCH 31.6 MCHC 33.9 RDW 13.0 Plt Count 325 MPV 8.0 Neutrophils % 87.0 H D Lymphocytes % 7.2 L D Monocytes % 5.7 Eosinophils % 0.0 D Basophils % 0.1 Sodium 137 Potassium 4.3 Chloride 104 Carbon Dioxide 25 Anion Gap 8 BUN 10 Creatinine 0.6 Creat Clearance w eGFR > 60 Random Glucose 168 H Calcium 8.4 L Total Bilirubin 0.4 D AST 53 H ALT 55 Alkaline Phosphatase 192 H Total Protein 5.9 L Albumin 2.4 L Active Medications Generic Name Dose Route Start Last Admin Trade Name Freq PRN Reason Stop Dose Admin Acetaminophen 650 mg 09/24/17 21:24 Tylenol - PO Q6H PRN PAIN LEVEL 1 - 3 Heparin Sodium (Porcine) 5,000 unit 09/24/17 22:00 09/25/17 14:16 Heparin - SQ 5,000 unit TID TRACEY Administration Potassium Chloride/Dextrose/Sod Cl 20 meq in 1,000 mls @ 83 mls/hr 09/24/17 21 :24 09/24/17 23:04 D5-1/2ns+20 Meq Kcl - IV 83 mls/hr ASDIR TRACEY Administration Piperacillin Sod/Tazobactam 50 mls @ 100 mls/hr 09/25/17 02:00 09/25/17 11:06 Sod 3.375 gm/ Dextrose IVPB 100 mls/hr Q8H-IV TRACEY Administration Protocol Ibuprofen 600 mg 09/24/17 21:24 09/25/17 11:04 Motrin - PO 600 mg Q6H PRN Administration PAIN LEVEL 4 - 6 Morphine Sulfate 1 mg 09/24/17 21:24 09/25/17 06:23 Morphine Sulfate IVPUSH 1 mg Q4H PRN Administration PAIN LEVEL 7 - 10 Ondansetron HCl 4 mg 09/24/17 21:24 Zofran Injection IVPUSH Q6H PRN NAUSEA Pantoprazole Sodium 40 mg 09/25/17 10:00 09/25/17 11:05 Protonix Iv IVPUSH 40 mg DAILY TRACEY Administration Polyethylene Glycol 17 gm 09/25/17 10:00 09/25/17 11:07 Miralax (For Daily Use) - PO 17 grams DAILY TRACEY Administration ASSESSMENT/PLAN: 72 year old F with 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 Waldron -ID consult, Dr. Veloz #Gastric lymphoma, in remission -f/u with oncology outpatient #FEN/GI -IVF @ 83 cc/hr -wnl -Regular Diet #PPx -Heparin 5000 sq q8h -protonix 40 iv daily Visit type - Emergency Visit Emergency Visit: Yes ED Registration Date: 09/22/17 Care time: The patient presented to the Emergency Department on the above date and was hospitalized for further evaluation of their emergent condition. - New Patient This patient is new to me today: No - Critical Care Critical Care patient: No
--- NOTE | 2017-09-25 17:18 | PN ---
Teaching Attending Note Name of Resident: Jameson Parker ATTENDING PHYSICIAN STATEMENT I saw and evaluated the patient. I reviewed the resident's note and discussed the case with the resident. I agree with the resident's findings and plan as documented. SUBJECTIVE: No complaints. Tolerating diet. OBJECTIVE: Vital Signs Period Temp Pulse Resp BP Sys/Bellamy Pulse Ox Last 24 Hr 98 F-100.3 F 81-104 16-26 126-160/49-94 97-100 HEART: S1S2, RRR LUNGS: Clear ABDOMEN: Obese, soft, (+) mild epigastric tenderness, non-distended, normal BS EXTREMITIES: No edema Laboratory Results - last 24 hr 09/25/17 09/25/17 06:15 06:15 WBC 9.7 RBC 3.50 L Hgb 11.1 Hct 32.7 MCV 93.4 MCH 31.6 MCHC 33.9 RDW 13.0 Plt Count 325 MPV 8.0 Neutrophils % 87.0 H D Lymphocytes % 7.2 L D Monocytes % 5.7 Eosinophils % 0.0 D Basophils % 0.1 Sodium 137 Potassium 4.3 Chloride 104 Carbon Dioxide 25 Anion Gap 8 BUN 10 Creatinine 0.6 Creat Clearance w eGFR > 60 Random Glucose 168 H Calcium 8.4 L Total Bilirubin 0.4 D AST 53 H ALT 55 Alkaline Phosphatase 192 H Total Protein 5.9 L Albumin 2.4 L Current Medications Generic Name Dose Route Start Last Admin Trade Name Freq PRN Reason Stop Dose Admin Acetaminophen 650 mg 09/24/17 21:24 Tylenol - PO Q6H PRN PAIN LEVEL 1 - 3 Heparin Sodium (Porcine) 5,000 unit 09/24/17 22:00 09/25/17 14:16 Heparin - SQ 5,000 unit TID TRACEY Administration Potassium Chloride/Dextrose/Sod Cl 20 meq in 1,000 mls @ 83 mls/hr 09/24/17 21 :24 09/24/17 23:04 D5-1/2ns+20 Meq Kcl - IV 83 mls/hr ASDIR TRACEY Administration Piperacillin Sod/Tazobactam 50 mls @ 100 mls/hr 09/25/17 02:00 09/25/17 11:06 Sod 3.375 gm/ Dextrose IVPB 100 mls/hr Q8H-IV TRACEY Administration Protocol Ibuprofen 600 mg 09/24/17 21:24 09/25/17 11:04 Motrin - PO 600 mg Q6H PRN Administration PAIN LEVEL 4 - 6 Morphine Sulfate 1 mg 09/24/17 21:24 09/25/17 06:23 Morphine Sulfate IVPUSH 1 mg Q4H PRN Administration PAIN LEVEL 7 - 10 Ondansetron HCl 4 mg 09/24/17 21:24 Zofran Injection IVPUSH Q6H PRN NAUSEA Pantoprazole Sodium 40 mg 09/25/17 10:00 09/25/17 11:05 Protonix Iv IVPUSH 40 mg DAILY TRACEY Administration Polyethylene Glycol 17 gm 09/25/17 10:00 09/25/17 11:07 Miralax (For Daily Use) - PO 17 grams DAILY TRACEY Administration ASSESSMENT AND PLAN: This is a 72 year old woman with a history of gastric lymphoma who presented to the ED with epigastric and RUQ abdominal pain x 2-3 days. 1. Sepsis secondary to acute cholecystitis - s/p lap opal 09/24 - acute gangrenous cholecystitis, hydrops gallbladder - Continue Zosyn 2. History of gastric lymphoma 3. Recent right shoulder arthroscopy, subacromial decompression, rotator cuff repair
--- NOTE | 2017-09-25 18:17 | PN ---
Progress Note, Physician Chief Complaint: Pt. has no GA complaints. Pain controlled. - Current Medication List Current Medications: Active Medications Acetaminophen (Tylenol -) 650 mg PO Q6H PRN PRN Reason: PAIN LEVEL 1 - 3 Heparin Sodium (Porcine) (Heparin -) 5,000 unit SQ TID [facility] Last Admin: 09/25/17 14:16 Dose: 5,000 unit Potassium Chloride/Dextrose/Sod Cl (D5-1/2ns+20 Meq Kcl -) 20 meq in 1,000 mls @ 83 mls/hr IV ASDIR [facility] Last Admin: 09/24/17 23:04 Dose: 83 mls/hr Piperacillin Sod/Tazobactam (Sod 3.375 gm/ Dextrose) 50 mls @ 100 mls/hr IVPB Q8H-IV TRACEY PRN Reason: Protocol Last Admin: 09/25/17 11:06 Dose: 100 mls/hr Ibuprofen (Motrin -) 600 mg PO Q6H PRN PRN Reason: PAIN LEVEL 4 - 6 Last Admin: 09/25/17 11:04 Dose: 600 mg Morphine Sulfate (Morphine Sulfate) 1 mg IVPUSH Q4H PRN PRN Reason: PAIN LEVEL 7 - 10 Last Admin: 09/25/17 06:23 Dose: 1 mg Ondansetron HCl (Zofran Injection) 4 mg IVPUSH Q6H PRN PRN Reason: NAUSEA Pantoprazole Sodium (Protonix Iv) 40 mg IVPUSH DAILY [facility] Last Admin: 09/25/17 11:05 Dose: 40 mg Polyethylene Glycol (Miralax (For Daily Use) -) 17 gm PO DAILY [facility] Last Admin: 09/25/17 11:07 Dose: 17 grams - Objective Vital Signs: Vital Signs Temperature 98.6 F 09/25/17 18:10 Pulse Rate 81 09/25/17 18:10 Respiratory Rate 20 09/25/17 18:10 Blood Pressure 144/75 09/25/17 18:10 O2 Sat by Pulse Oximetry (%) 97 09/25/17 01:55 Constitutional: Yes: Well Nourished, No Distress, Calm Musculoskeletal: Yes: WNL Neurological: Yes: WNL, Alert, Oriented Labs: CBC, BMP 09/25/17 06:15 09/25/17 06:15 INR, PTT INR 1.32 (0.82-1.09) H 09/22/17 19:30 Assessment/Plan POD#1 s/p Laparoscopic Cholecystectomy under GA. Doing well. D/C from anesthesia care.
--- NOTE | 2017-09-25 21:42 | PN ---
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 stable overnight postop. tolerating diet. no BM reported. - Current Medication List Current Medications: Active Medications Acetaminophen (Tylenol -) 650 mg PO Q6H PRN PRN Reason: PAIN LEVEL 1 - 3 Heparin Sodium (Porcine) (Heparin -) 5,000 unit SQ TID [facility] Last Admin: 09/25/17 21:02 Dose: 5,000 unit Potassium Chloride/Dextrose/Sod Cl (D5-1/2ns+20 Meq Kcl -) 20 meq in 1,000 mls @ 83 mls/hr IV ASDIR [facility] Last Admin: 09/24/17 23:04 Dose: 83 mls/hr Piperacillin Sod/Tazobactam (Sod 3.375 gm/ Dextrose) 50 mls @ 100 mls/hr IVPB Q8H-IV [facility] PRN Reason: Protocol Last Admin: 09/25/17 18:35 Dose: 100 mls/hr Ibuprofen (Motrin -) 600 mg PO Q6H PRN PRN Reason: PAIN LEVEL 4 - 6 Last Admin: 09/25/17 11:04 Dose: 600 mg Morphine Sulfate (Morphine Sulfate) 1 mg IVPUSH Q4H PRN PRN Reason: PAIN LEVEL 7 - 10 Last Admin: 09/25/17 06:23 Dose: 1 mg Ondansetron HCl (Zofran Injection) 4 mg IVPUSH Q6H PRN PRN Reason: NAUSEA Pantoprazole Sodium (Protonix Iv) 40 mg IVPUSH DAILY [facility] Last Admin: 09/25/17 11:05 Dose: 40 mg Polyethylene Glycol (Miralax (For Daily Use) -) 17 gm PO DAILY [facility] Last Admin: 09/25/17 11:07 Dose: 17 grams - Objective Vital Signs: Vital Signs Temperature 98.7 F 09/25/17 20:58 Pulse Rate 89 09/25/17 20:58 Respiratory Rate 18 09/25/17 20:58 Blood Pressure 133/64 09/25/17 20:58 O2 Sat by Pulse Oximetry (%) 97 09/25/17 09:00 Vital Signs Period Temp Pulse Resp BP Sys/Bellamy Pulse Ox Last 24 Hr 98.6 F-99.2 F 81-91 16-20 128-144/63-75 97 Constitutional: Yes: No Distress, Calm, Obese Eyes: Yes: Conjunctiva Clear, EOM Intact HENT: Yes: Atraumatic, Normocephalic Neck: Yes: Supple, Trachea Midline Cardiovascular: Yes: Regular Rate and Rhythm, S1, S2 Gastrointestinal: Yes: Normal Bowel Sounds, Soft. No: Distention, Tenderness ...Rectal Exam: Yes: Deferred Genitourinary: No: CVA Tenderness - Left, CVA Tenderness - Right Musculoskeletal: No: Muscle Pain, Muscle Weakness Extremities: Yes: Other (right shoudler swath and sling inplace). No: Cool, Cyanosis Wound/Incision: Yes: Clean/Dry, Well Approximated, Sutures Intact, Beena Intact, Draining (Drain in RUQ removed) Neurological: Yes: Alert, Oriented Psychiatric: Yes: Alert, Oriented Labs: CBC, BMP 09/25/17 06:15 09/25/17 06:15 INR, PTT INR 1.32 (0.82-1.09) H 09/22/17 19:30 Problem List - Problems (1) Calculous cholecystitis Assessment/Plan: 72 yo female MMP with Acute cholecystitis POD#1 s/p laparoscopic cholecystectomy continue diet as tolerated OOB to chair and ambulate encourage IS Pain control Will give Duloclax suppository Discharge at the discretion of the primary team. Code(s): K80.10 - CALCULUS OF GALLBLADDER W CHRONIC CHOLECYST W/O OBSTRUCTION Qualifiers: Cholecystitis acuity: acute Biliary obstruction: without biliary obstruction Qualified Code(s): K80.00 - Calculus of gallbladder with acute cholecystitis without obstruction (2) Obesity (BMI 30.0-34.9) Code(s): E66.9 - OBESITY, UNSPECIFIED (3) Gastric lymphoma Code(s): C85.93 - NON-HODGKIN LYMPHOMA, UNSP, INTRA-ABDOMINAL LYMPH NODES (4) Subacromial impingement of right shoulder Code(s): M75.41 - IMPINGEMENT SYNDROME OF RIGHT SHOULDER (5) Leukocytosis (leucocytosis) Code(s): D72.829 - ELEVATED WHITE BLOOD CELL COUNT, UNSPECIFIED
[2017-09-26] MEDS ORDERED: PIPERACILLIN/TAZOBACTAM 3.375 GM VIAL IVPB ONE (01:17)
[2017-09-26] MEDS ORDERED: DEXTROSE 5%-WATER - 50 ML IVPB ONE (01:18)
[2017-09-26] MEDS: D5-1/2NS+20 MEQ KCL - 20 MEQ/1,000 ML INFUS.BAG IV SCH (01:30)
[2017-09-26] MEDS: PIPERACILLIN/TAZOB 3.375 GM 3.375 GM in DEXTROSE 5%-WATER - 50 ML IVPB SCH ×2 (01:58→11:40)
[2017-09-26] MEDS: HEPARIN NA (PORCINE) 5,000 UNITS/ML 1ML VIAL SQ SCH ×2 (06:09→14:01)
[2017-09-26 07:26] LABS: BASO % 0.5 % (0-2.0); EOS % 10.4 % (0-4.5); HEMATOCRIT 34.5 % (32.4-45.2); HEMOGLOBIN 11.5 GM/dL (10.7-15.3); LYMPH % 20.7 % (8-40); MCH 31.2 pg (25.7-33.7); MCHC 33.2 g/dl (32.0-36.0); MEAN CELL VOLUME 93.9 fl (80-96); MEAN PLT VOLUME 7.9 fl (7.5-11.1); MONO % 8.3 % (3.8-10.2); NEUT % 60.1 % (42.8-82.8); PLATELET COUNT 373 K/MM3 (134-434); RBC 3.67 M/mm3 (3.60-5.2); RDW 13.1 % (11.6-15.6); WHITE BLOOD COUNT 9.9 K/mm3 (4.0-10.0)
[2017-09-26 08:11] LABS: ALBUMIN 2.4 g/dl (3.4-5.0); ALK PHOS 170 U/L (45-117); ANION GAP 7 (8-16); BILIRUBIN,TOTAL 0.3 mg/dL (0.2-1.0); BLOOD UREA NITROGEN 14 mg/dL (7-18); CALCIUM 8.3 mg/dL (8.5-10.1); CHLORIDE 107 mmol/L (98-107); CO2 27 mmol/L (21-32); CREATININE 0.7 mg/dL (0.55-1.02); GLUCOSE,RANDOM 83 mg/dL (74-106); POTASSIUM 4.4 mmol/L (3.5-5.1); SGOT/AST 40 U/L (15-37); SGPT/ALT 55 U/L (12-78); SODIUM 141 mmol/L (136-145); TOT PROT 6.1 g/dl (6.4-8.2)
--- NOTE | 2017-09-26 09:42 | PN ---
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 stable overnight postop. tolerating diet. still no BM reported. - Current Medication List Current Medications: Active Medications Acetaminophen (Tylenol -) 650 mg PO Q6H PRN PRN Reason: PAIN LEVEL 1 - 3 Heparin Sodium (Porcine) (Heparin -) 5,000 unit SQ TID [facility] Last Admin: 09/26/17 06:09 Dose: 5,000 unit Potassium Chloride/Dextrose/Sod Cl (D5-1/2ns+20 Meq Kcl -) 20 meq in 1,000 mls @ 83 mls/hr IV ASDIR [facility] Last Admin: 09/26/17 01:30 Dose: 83 mls/hr Piperacillin Sod/Tazobactam (Sod 3.375 gm/ Dextrose) 50 mls @ 100 mls/hr IVPB Q8H-IV [facility] PRN Reason: Protocol Last Admin: 09/26/17 01:58 Dose: 100 mls/hr Ibuprofen (Motrin -) 600 mg PO Q6H PRN PRN Reason: PAIN LEVEL 4 - 6 Last Admin: 09/25/17 11:04 Dose: 600 mg Morphine Sulfate (Morphine Sulfate) 1 mg IVPUSH Q4H PRN PRN Reason: PAIN LEVEL 7 - 10 Last Admin: 09/25/17 06:23 Dose: 1 mg Ondansetron HCl (Zofran Injection) 4 mg IVPUSH Q6H PRN PRN Reason: NAUSEA Pantoprazole Sodium (Protonix Iv) 40 mg IVPUSH DAILY [facility] Last Admin: 09/25/17 11:05 Dose: 40 mg Polyethylene Glycol (Miralax (For Daily Use) -) 17 gm PO DAILY [facility] Last Admin: 09/25/17 11:07 Dose: 17 grams - Objective Vital Signs: Vital Signs Temperature 98.6 F 09/26/17 06:57 Pulse Rate 83 09/26/17 06:57 Respiratory Rate 20 09/26/17 06:57 Blood Pressure 132/66 09/26/17 06:57 O2 Sat by Pulse Oximetry (%) 97 09/25/17 21:00 Vital Signs Period Temp Pulse Resp BP Sys/Bellamy Pulse Ox Last 24 Hr 98.6 F-99.2 F 81-91 16-20 128-144/63-75 97 Intake & Output 09/25/17 09/26/17 09/26/17 23:59 07:59 15:59 Intake Total 50 1246 Output Total 15 20 Balance 35 -20 1246 Intake: IV 996 D5-1/2NS+20 MEQ KCL - 20 996 meq In 1,000 ml @ 83 mls/ hr IV ASDIR [facility] Rx#: [id number] IVPB 50 50 Oral 200 Output: Drainage 15 20 Right Upper 15 20 Other: Voiding Method Toilet # Unmeasured Voids Void 2 2 Bowel Movement No Constitutional: Yes: No Distress, Calm, Obese Eyes: Yes: Conjunctiva Clear, EOM Intact HENT: Yes: Atraumatic, Normocephalic Neck: Yes: Supple, Trachea Midline Cardiovascular: Yes: Regular Rate and Rhythm, S1, S2 Respiratory: Yes: Regular, CTA Bilaterally Gastrointestinal: Yes: Normal Bowel Sounds, Soft ...Rectal Exam: Yes: Deferred Genitourinary: No: CVA Tenderness - Left, CVA Tenderness - Right Musculoskeletal: Yes: Other (Right shoulder swath and sling). No: Muscle Pain, Muscle Weakness Extremities: No: Cool, Cyanosis Edema: No Peripheral Pulses WNL: Yes Peripheral Pulses: Left Doralis Pedis: 2+, Right Dorsalis Pedis: 2+ Integumentary: No: Jaundice, Rash Wound/Incision: Yes: Clean/Dry, Well Approximated, Steri Strips, Open to air, Dressing Removed Neurological: Yes: Alert, Oriented Psychiatric: Yes: Alert, Oriented Labs: CBC, BMP 09/26/17 05:35 09/26/17 05:35 INR, PTT INR 1.32 (0.82-1.09) H 09/22/17 19:30 Problem List - Problems (1) Calculous cholecystitis Assessment/Plan: 72 yo female MMP with Acute cholecystitis POD#2 s/p laparoscopic cholecystectomy , RUQ PERRY removed, bandaid placed. continue diet as tolerated OOB to chair and ambulate encourage IS Pain control Will give Duloclax suppository Discharge at the discretion of the primary team. Code(s): K80.10 - CALCULUS OF GALLBLADDER W CHRONIC CHOLECYST W/O OBSTRUCTION Qualifiers: Cholecystitis acuity: acute Biliary obstruction: without biliary obstruction Qualified Code(s): K80.00 - Calculus of gallbladder with acute cholecystitis without obstruction (2) Obesity (BMI 30.0-34.9) Code(s): E66.9 - OBESITY, UNSPECIFIED (3) Gastric lymphoma Code(s): C85.93 - NON-HODGKIN LYMPHOMA, UNSP, INTRA-ABDOMINAL LYMPH NODES (4) Subacromial impingement of right shoulder Code(s): M75.41 - IMPINGEMENT SYNDROME OF RIGHT SHOULDER (5) Leukocytosis (leucocytosis) Code(s): D72.829 - ELEVATED WHITE BLOOD CELL COUNT, UNSPECIFIED
[2017-09-26] MEDS ORDERED: BISACODYL 5 MG TABLET.DR (FP) PO ONE ×3 (10:00→14:00)
[2017-09-26] MEDS ORDERED: BISACODYL 10 MG SUPP.RECT RC ONE (10:00)
[2017-09-26] MEDS ORDERED: PIPERACIL/TAZOB 3.375 GM 3.375 GM/50 ML PREMIX IVPB SCH (10:30)
[2017-09-26] MEDS ORDERED: LACTATED RINGERS SOLUTION 1,000 ML/1,000 ML INFUS.BAG IV SCH (10:30)
[2017-09-26] MEDS ORDERED: PIPERACILLIN/TAZOB 3.375 GM 3.375 GM in DEXTROSE 5%-WATER - 50 ML IVPB SCH ×2 (11:00→11:01)
[2017-09-26] MEDS: POLYETHYLENE GLYCOL 3350 119 GM BTL PO SCH (11:06)
[2017-09-26] MEDS: PANTOPRAZOLE SODIUM 40 MG VIAL IVPUSH SCH ×2 (11:07→12:40)
--- NOTE | 2017-09-26 11:31 | OP ---
DATE OF OPERATION: 09/24/2017 PREOPERATIVE DIAGNOSIS: Acute cholecystitis. POSTOPERATIVE DIAGNOSIS: Acute gangrenous cholecystitis. PROCEDURE: Laparoscopic cholecystectomy. ATTENDING SURGEON: New Waldron MD CLIENT PARTNER: Meredith Valdez DO ANESTHESIOLOGIST: Alaina Sanchez DO ANESTHESIA TYPE: General with local, local consists of 0.5% Marcaine, a total of 10 mL given in an area block fashion. ESTIMATED BLOOD LOSS: 150 mL. ESTIMATED INTRAVENOUS FLUID ADMINISTERED: 1000 mL. DRAINS: Right upper quadrant, PERRY, size 10 flat, to remove additional irrigation. BRIEF FINDINGS: Inflamed distended gallbladder, which was intrahepatic. There were dense adhesions to the omentum, and there appeared to be some gangrene of the wall adjacent to the liver. Critical view was identified. INDICATIONS: Patient is a 72-year-old female presenting with right upper quadrant pain on and off for about 4 years. She was aware of gallstones, was noted to have a right upper quadrant pain that persisted for 2 days prior to her presentation. She was counseled regarding risks, benefits, and alternatives to laparoscopic cholecystectomy. She signed informed consent and was taken to procedure. DESCRIPTION OF PROCEDURE: The patient was brought to the operating room, placed in supine position on the operating table with the left arm tucked and the right arm extended to 90 degrees perpendicular to the bodys axis. Lower extremities had SCDs placed. Patient was already on Zosyn. She was given Zosyn prior to surgery. The patient was induced with general anesthesia, endotracheally intubated. At which point, we proceeded with first anterior prep and drape that was just sterile to the anterior abdominal wall. This was blocked into a surgical field. We completed a formal time-out identifying the operative site. At which point, with all parties in agreement, we proceeded first with a Veress needle entry to the abdomen. The anterior abdominal wall was elevated at the umbilicus. A stab incision was made just at supraumbilical position. A Veress needle was introduced in the abdomen with 2 clips. A drop test was performed, and a pneumoperitoneum was established to 15 mmHg. At which point, we proceeded first with removal of the Veress needle, and insertion of a 5-mm trocar at the umbilicus. The camera was then used to inspect the abdomen to see that there was no unintended injury to abdominal viscera. We proceeded then with inspection of the gallbladder, which appeared largely distended, edematous, and slightly gangrenous with dense adhesions. Those were taken down with a bit of brushing of the camera itself. We then established an operative port at the subxiphoid position. This was installed. A 12-mm port was installed under direct visualization in the subxiphoid area. We then proceeded to install 2 additional 5-mm trocars in the right abdomen, right upper abdomen. We proceeded first then with grasping the gallbladder and retracting superiorly. At which point, the remainder of the adhesions from the liver as well as the omentum were taken down with graspers. A [place] dissector was then used to develop a plane just anterior to the cystic structures with the gallbladder being retracted towards the right side of the abdomen. This plane was developed, and the cystic duct and artery were both dissected until the critical view could be identified at the hepatic plate. The fatty connective tissue adjacent as well as the node was taken with the gallbladder specimen. The cystic duct and artery once established were controlled with plastic Weck clips clipping the duct and artery, controlling these structures, and then dividing them with EndoShears. When this was done, we proceeded then with the dissection of the gallbladder from the gallbladder fossa using Bovie cautery. This was completed to the dome. At which point, the gallbladder was retrieved from the abdomen from the subxiphoid position using EndoCatch system. With the gallbladder removed, the gallbladder fossa was explored, and hemostasis was obtained using Bovie cautery. We proceeded then with irrigation of the site. There did appear to be a small amount of bile spillage which was irrigated. The incision was made to leave a Kavon-Levy drain. The Kavon-Levy drain was started through the subxiphoid position into the right upper quadrant and secured to the skin with a 2-0 nylon. We then, under direct visualization, placed the Kavon-Levy drain in the gallbladder fossa adjacent to the ligated cystic structures. The site was again positioned, and omentum was interposed to allow for an adequate surgical seal. We proceeded then with relieving the pneumoperitoneum after removing the trocars under direct visualization. With the trocars removed, the skin was cleaned. The subxiphoid area was repaired using endoscopic passage of 0 Vicryl through figure-of-8 using an obturator prior to remove with the final port. With the pneumoperitoneum relieved, the patient had the anterior abdominal wall cleaned. The port sites were closed using 4-0 Vicryl in interrupted fashion at the level of subcutaneous tissue. The skin was cleaned and sterile dressings were applied, Benzoin, Steri-Strips, gauze sponges, and Tegaderms. The patient was awoken from general anesthesia having tolerated the procedure well. She was extubated in the operating room and returned to recovery in stable condition. Counts were correct. She was given instructions to resume her diet and continue antibiotic, and she would be kept for an additional day. MD MAVR Maldonado/[id number]
[2017-09-26] MEDS ORDERED: PANTOPRAZOLE 40 MG TABLET (FP) PO SCH (13:15)
--- NOTE | 2017-09-26 13:16 | PN ---
Progress Note, Physician History of Present Illness: patient feels much better drain removed patient tolerating diet no complaints - Current Medication List Current Medications: Active Medications Acetaminophen (Tylenol -) 650 mg PO Q6H PRN PRN Reason: PAIN LEVEL 1 - 3 Amoxicillin/Clavulanate Potassium (Augmentin - 875mg Tablet) 1 tab PO BID@0800, 1730 [facility] Heparin Sodium (Porcine) (Heparin -) 5,000 unit SQ TID [facility] Last Admin: 09/26/17 06:09 Dose: 5,000 unit Potassium Chloride/Dextrose/Sod Cl (D5-1/2ns+20 Meq Kcl -) 20 meq in 1,000 mls @ 83 mls/hr IV ASDIR [facility] Last Admin: 09/26/17 01:30 Dose: 83 mls/hr Ibuprofen (Motrin -) 600 mg PO Q6H PRN PRN Reason: PAIN LEVEL 4 - 6 Last Admin: 09/25/17 11:04 Dose: 600 mg Morphine Sulfate (Morphine Sulfate) 1 mg IVPUSH Q4H PRN PRN Reason: PAIN LEVEL 7 - 10 Last Admin: 09/25/17 06:23 Dose: 1 mg Ondansetron HCl (Zofran Injection) 4 mg IVPUSH Q6H PRN PRN Reason: NAUSEA Pantoprazole Sodium (Protonix Iv) 40 mg IVPUSH DAILY [facility] Last Admin: 09/26/17 12:40 Dose: Not Given Polyethylene Glycol (Miralax (For Daily Use) -) 17 gm PO DAILY [facility] Last Admin: 09/26/17 11:06 Dose: 17 grams - Objective Vital Signs: Vital Signs Temperature 98.6 F 09/26/17 06:57 Pulse Rate 83 09/26/17 06:57 Respiratory Rate 20 09/26/17 06:57 Blood Pressure 132/66 09/26/17 06:57 O2 Sat by Pulse Oximetry (%) 97 09/25/17 21:00 Constitutional: Yes: No Distress, Calm Cardiovascular: Yes: Regular Rate and Rhythm Respiratory: Yes: Regular, CTA Bilaterally Gastrointestinal: Yes: Normal Bowel Sounds, Soft Musculoskeletal: Yes: WNL Extremities: Yes: WNL Wound/Incision: Yes: Clean/Dry Neurological: Yes: Alert, Oriented Psychiatric: Yes: Alert, Oriented Labs: CBC, BMP 09/26/17 05:35 09/26/17 05:35 INR, PTT INR 1.32 (0.82-1.09) H 09/22/17 19:30 Assessment/Plan Problem List - Problems (1) Calculous cholecystitis Code(s): K80.10 - CALCULUS OF GALLBLADDER W CHRONIC CHOLECYST W/O OBSTRUCTION Qualifiers: Cholecystitis acuity: acute Biliary obstruction: without biliary obstruction Qualified Code(s): K80.00 - Calculus of gallbladder with acute cholecystitis without obstruction (2) Obesity (BMI 30.0-34.9) Code(s): E66.9 - OBESITY, UNSPECIFIED (3) Gastric lymphoma Code(s): C85.93 - NON-HODGKIN LYMPHOMA, UNSP, INTRA-ABDOMINAL LYMPH NODES (4) Subacromial impingement of right shoulder Code(s): M75.41 - IMPINGEMENT SYNDROME OF RIGHT SHOULDER (5) Leukocytosis (leucocytosis) Code(s): D72.829 - ELEVATED WHITE BLOOD CELL COUNT, UNSPECIFIED plan continue abx will change abx to oral watch on oral abx rest continue current mgmt
--- NOTE | 2017-09-26 14:17 | PN ---
Physical Exam: SUBJECTIVE: Patient seen and examined OBJECTIVE: Vital Signs Period Temp Pulse Resp BP Sys/Bellamy Pulse Ox Last 24 Hr 98.6 F-98.7 F 81-89 16-20 128-144/63-75 97 GENERAL: The patient is awake, alert, and fully oriented, in no acute distress. HEAD: Normal with no signs of trauma. EYES: PERRL, extraocular movements intact, sclera anicteric, conjunctiva clear. No ptosis. ENT: Ears normal, nares patent, oropharynx clear without exudates, moist mucous membranes. NECK: Trachea midline, full range of motion, supple. LUNGS: Breath sounds equal, clear to auscultation bilaterally, no wheezes, no crackles, no accessory muscle use. HEART: Regular rate and rhythm, S1, S2 without murmur, rub or gallop. ABDOMEN: Soft, nontender, nondistended, normoactive bowel sounds, no guarding, no rebound, no hepatosplenomegaly, no masses. EXTREMITIES: 2+ pulses, warm, well-perfused, no edema. NEUROLOGICAL: Cranial nerves II through XII grossly intact. Normal speech, gait not observed. PSYCH: Normal mood, normal affect. SKIN: Warm, dry, normal turgor, no rashes or lesions noted Laboratory Results - last 24 hr 09/26/17 09/26/17 05:35 05:35 WBC 9.9 RBC 3.67 Hgb 11.5 Hct 34.5 MCV 93.9 MCH 31.2 MCHC 33.2 RDW 13.1 Plt Count 373 MPV 7.9 Neutrophils % 60.1 D Lymphocytes % 20.7 D Monocytes % 8.3 Eosinophils % 10.4 H D Basophils % 0.5 D Sodium 141 Potassium 4.4 Chloride 107 Carbon Dioxide 27 Anion Gap 7 L BUN 14 Creatinine 0.7 Creat Clearance w eGFR > 60 Random Glucose 83 Calcium 8.3 L Total Bilirubin 0.3 D AST 40 H ALT 55 Alkaline Phosphatase 170 H Total Protein 6.1 L Albumin 2.4 L Active Medications Generic Name Dose Route Start Last Admin Trade Name Freq PRN Reason Stop Dose Admin Acetaminophen 650 mg 09/24/17 21:24 Tylenol - PO Q6H PRN PAIN LEVEL 1 - 3 Amoxicillin/Clavulanate Potassium 1 tab 09/26/17 17:30 Augmentin - 875mg Tablet PO BID@0800,1730 [facility] Heparin Sodium (Porcine) 5,000 unit 09/24/17 22:00 09/26/17 14:01 Heparin - SQ 5,000 unit TID [facility] Administration Potassium Chloride/Dextrose/Sod Cl 20 meq in 1,000 mls @ 83 mls/hr 09/24/17 21 :24 09/26/17 01:30 D5-1/2ns+20 Meq Kcl - IV 83 mls/hr ASDIR [facility] Administration Ibuprofen 600 mg 09/24/17 21:24 09/25/17 11:04 Motrin - PO 600 mg Q6H PRN Administration PAIN LEVEL 4 - 6 Morphine Sulfate 1 mg 09/24/17 21:24 09/25/17 06:23 Morphine Sulfate IVPUSH 1 mg Q4H PRN Administration PAIN LEVEL 7 - 10 Ondansetron HCl 4 mg 09/24/17 21:24 Zofran Injection IVPUSH Q6H PRN NAUSEA Pantoprazole Sodium 40 mg 09/26/17 13:15 09/26/17 14:01 Protonix - PO 40 mg DAILY [facility] Administration Polyethylene Glycol 17 gm 09/25/17 10:00 09/26/17 11:06 Miralax (For Daily Use) - PO 17 grams DAILY [facility] Administration ASSESSMENT/PLAN:
[2017-09-26 15:49] VITALS: BP 148/72; PULSE 90; TEMP 99.7
--- NOTE | 2017-09-26 16:07 | DS ---
Physical Exam: Microbiology 09/22/17 15:45 Blood - Peripheral Venous Blood Culture - Preliminary NO GROWTH OBTAINED AFTER 96 HOURS, INCUBATION TO CONTINUE FOR 1 DAYS. 09/22/17 15:45 Blood - Peripheral Venous Blood Culture - Preliminary NO GROWTH OBTAINED AFTER 96 HOURS, INCUBATION TO CONTINUE FOR 1 DAYS. Selected Entries 09/26/17 09/26/17 09:00 15:48 Temperature 99.7 F H Pulse Rate 90 Respiratory 20 Rate Blood Pressure 148/72 O2 Sat by Pulse 94 L Oximetry (%) Oxygen Delivery Room Air Method Laboratory Tests 09/22/17 09/22/17 09/22/17 11:55 11:55 11:55 WBC 15.3 H D Hgb 13.5 Hct 40.2 Plt Count 308 INR Sodium Potassium Chloride Carbon Dioxide Anion Gap Creatinine Creat Clearance w eGFR Lactic Acid AST 16 ALT 26 Lipase 87 Urine pH 5.0 Ur Specific [place] 1.028 Urine Protein 2+ H Urine Glucose (UA) Negative Urine Ketones Negative Urine Blood Negative Urine Nitrite Negative Urine Bilirubin Negative Urine Urobilinogen 4.0 e.u/dl H Ur Leukocyte Esterase Negative Urine WBC (Auto) 3 Urine RBC (Auto) 14 Ur Epithelial Cells Many Urine Bacteria Rare Urine Mucus Many 09/22/17 09/22/17 09/26/17 18:23 19:30 05:35 WBC 9.9 Hgb 11.5 Hct 34.5 Plt Count 373 INR 1.32 H Sodium Potassium Chloride Carbon Dioxide Anion Gap Creatinine Creat Clearance w eGFR Lactic Acid 1.0 AST ALT Lipase Urine pH Ur Specific [place] Urine Protein Urine Glucose (UA) Urine Ketones Urine Blood Urine Nitrite Urine Bilirubin Urine Urobilinogen Ur Leukocyte Esterase Urine WBC (Auto) Urine RBC (Auto) Ur Epithelial Cells Urine Bacteria Urine Mucus 09/26/17 05:35 WBC Hgb Hct Plt Count INR Sodium 141 Potassium 4.4 Chloride 107 Carbon Dioxide 27 Anion Gap 7 L Creatinine 0.7 Creat Clearance w eGFR > 60 Lactic Acid AST 40 H ALT 55 Lipase Urine pH Ur Specific [place] Urine Protein Urine Glucose (UA) Urine Ketones Urine Blood Urine Nitrite Urine Bilirubin Urine Urobilinogen Ur Leukocyte Esterase Urine WBC (Auto) Urine RBC (Auto) Ur Epithelial Cells Urine Bacteria Urine Mucus ABD/PELVIS CT-- 1. Cholelithiasis and CT findings compatible with acute cholecystitis in the appropriate clinical setting. 2. Since 09/27/2010 CT, interval resolution of solid mesenteric mass/lymphadenopathy. 3. Nonobstructing left nephrolithiasis as described above. No hydronephrosis. 4. Hepatic steatosis. 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 Patient underwent CT abd/pelvis and abd u/s. Patient admitted for acute cholecystitis. Patient seen by surgery and had an uncomplicated laproscopic cholecystectomy. Patient had drain placed in OR. Drain was removed on 09/26 and patient will be d/c with 7 days of Augmentin 875 BID. She will follow up with her PCP and surgeon within 1 week. Minutes to complete discharge: 38 <Jameson Parker - Last Filed: 09/26/17 16:35> Physical Exam: Patient is comfortable with no acute distress, Drain is pulled out by the surgeon. and is ok for discharge, no fever or chills, patient will follow up with the surgeon in 2 weeks. Also as per ID and Surgeon patient will be discharged on Augmentin 875mg po bid x 7 days. Patient will follow up with surgeon in 2 weeks. <Avtar Costello - Last Filed: 09/26/17 17:20> Discharge Summary Reason For Visit: ACUTE CHOLECYSTITIS - Home Medications Comprehensive Discharge Medication List: Ambulatory Orders Acetaminophen [Tylenol] 650 mg PO Q4H PRN 09/22/17 Omeprazole 40 mg PO DAILY 09/22/17 Amoxicillin/Potassium Clav [Augmentin 875-125 Tablet] 1 each PO BID #14 tablet 09/26/17 <Jameson Parker - Last Filed: 09/26/17 16:35> - Home Medications Comprehensive Discharge Medication List: Ambulatory Orders Acetaminophen [Tylenol] 650 mg PO Q4H PRN 09/22/17 Omeprazole 40 mg PO DAILY 09/22/17 Amoxicillin/Potassium Clav [Augmentin 875-125 Tablet] 1 each PO BID #14 tablet 09/26/17 <Avtar Costello - Last Filed: 09/26/17 17:20> Condition: Improved - Instructions Diet, Activity, Other Instructions: Postoperative instructions: You had a laparoscopic cholecystectomy on DATE by Dr. New Waldron of [facility]. Activity: Resume your usual activities gradually, but no heavy exertion or lifting more than 10-15 pounds for 1 month. Remove dressings 48 hours after surgery; sticky tapes underneath will fall off by themselves. You may shower daily starting then, just pat the incision areas dry. Eat lightly at first, but advance to your usual diet as tolerated. Pain: For pain, you may use and alternate Tylenol (acetaminophen) and/or ibuprofen every 6 hours each as needed; this means that you can take one OR the other at 3-hour intervals. If you are prescribed a Tylenol/narcotic combination for severe pain, use it instead of plain Tylenol as needed and switch back when your pain starts decreasing. Do not take more than 4000mg of acetaminophen in a day. Take medications as prescribed or indicated on the labeling. Follow-up: Call Dr. Waldron' office at [phone] to make your postop appointment (Sunday ~2 weeks after surgery). Clinic is held in the Diagnostic Center on the first floor of [facility]. Call the office if you have: * increasing pain not responsive to pain medication * fever of 101F or higher * vomiting * unusual or increasing bleeding or drainage from wounds * increasing redness or swelling at wound sites * inability to urinate Also, see your primary medical doctor within 1-2 weeks. Please take Augmentin twice per day for 7 days. A prescription has been sent to your pharmacy. IF you have chest pain, shortness of breath, or any new/worsening symptoms please come back to the hospital immediately. Continue using the incentive spirometer Referrals: New Waldron MD [Staff Physician] - 10/10/17 Ez Ramos [Primary Care Provider] - Disposition: HOME This patient is new to me today: No Emergency Visit: Yes ED Registration Date: 09/22/17 Care time: The patient presented to the Emergency Department on the above date and was hospitalized for further evaluation of their emergent condition. Critical Care patient: No - Discharge Referral Referred to [facility] No <Jameson Parker - Last Filed: 09/26/17 16:35>
[2017-09-26] MEDS ORDERED: AMOX TR/POT CLAV 875MG/125MG TABLETS (FP) PO SCH (17:30)
--- NOTE | 2017-09-27 14:44 | PATH ---
Surgical Pathology Report Patient Name: KYLER ANDINO Med. Rec. #: [id number] /Age/Gender: 1945 (Age: 72) / F Account: [id number] Location: [facility] MED/SURG Taken: 09/24/2017 Received: 09/25/2017 Reported: 09/27/2017 Physicians: Alireza Norwood M.D. Specimen(s) Received GALLBLADDER Clinical History Acute cholecystitis Final Diagnosis GALLBLADDER, CHOLECYSTECTOMY: ACUTE, CHRONIC, AND NECROTIZING CHOLECYSTITIS AND CHOLELITHIASIS. BENIGN PERICYSTIC LYMPH NODE IS PRESENT. Electronically Signed Jovani Lobo M.D. Gross Description Received in formalin, labeled "gallbladder," is a 8.7 x 3.8 x 3.1 cm. gallbladder with a 0.2 cm. in length portion of cystic duct attached. There is a 1 cm in greatest dimension periductal lymph node present. The outer surface is cohn dalton with multifocal defects and varies from smooth to shaggy. The lumen contains brown blood. The mucosa is brown green and focally gangrenous. The wall of the gallbladder ranges from 0.1-0.5 cm. in thickness. Contact Manager sections are submitted in one cassette. /09/25/2017 located within [facility]09/25/2017
== END 2017-09-26 15:27 | disposition home or self-care (01) | DRG 854 ==
LOC: JER 10:09 → JERBED 16:02 → J8W 17:46
PROVIDERS: ADMIT Internal Medicine; ATTEND Internal Medicine
PROC: 0FT44ZZ Resection of Gallbladder, Percutaneous Endoscopic Approach (ICD-10-PCS; principal; 2017-09-26)
PROC: 0DNU4ZZ Release Omentum, Percutaneous Endoscopic Approach (ICD-10-PCS; 2017-09-26)
DX: A41.9 Sepsis, unspecified organism (principal); K80.12 Calculus of gallbladder with acute and chronic cholecystitis without obstruction; K82.1 Hydrops of gallbladder; E66.9 Obesity, unspecified; Z68.33 Body mass index [BMI] 33.0-33.9, adult; D72.829 Elevated white blood cell count, unspecified; K66.0 Peritoneal adhesions (postprocedural) (postinfection)
CPT/HCPCS: 36415; 71046-TC-FY; 74176-TC; 76705-TC; 80053; 81003; 81015; 83605; 83690; 85025; 85610; 86850; 86900; 86901; 87040; 88304-TC; 93005; 93010; 94010; 94760; 99284-25; J1644; J7030

== ENCOUNTER 2018-02-26 11:52 | Emergency (ER) | payer OTHER ==
[2018-02-26 11:58] VITALS: BP 157/68; PULSE 97; TEMP 98; BMI 33.0
--- NOTE | 2018-02-26 12:36 | PDOC ---
History of Present Illness - General Chief Complaint: Chronic pain Stated Complaint: FALL, LEFT KNEE PAIN Time Seen by Provider: 02/26/18 12:04 - History of Present Illness Initial Comments: 73-year-old female presents for evaluation of left knee pain after mechanical fall. She points to the anterior aspect of the left knee as the area of the discomfort. 02/26/18 12:32 Past History - Past Medical History Allergies/Adverse Reactions: Allergies Allergy/AdvReac Type Severity Reaction Status Date / Time No Known Drug Allergies Allergy Verified 02/26/18 11:58 Home Medications: Ambulatory Orders Acetaminophen [Tylenol] 650 mg PO Q4H PRN 09/22/17 Omeprazole 40 mg PO DAILY 09/22/17 Amoxicillin/Potassium Clav [Augmentin 875-125 Tablet] 1 each PO BID #14 tablet 09/26/17 Anemia: No Asthma: No Cancer: Yes (HX OF LYMPHOMA 2010) Cardiac Disorders: No CVA: No COPD: No CHF: No Dementia: No Diabetes: No GI Disorders: No Disorders: No HTN: No Hypercholesterolemia: No Liver Disease: No Seizures: No Thyroid Disease: No - Surgical History Abdominal Surgery: No Appendectomy: Yes (MANY YEARS AGO) Cardiac Surgery: No Cholecystectomy: No Lung Surgery: No Neurologic Surgery: No Orthopedic Surgery: (08/29/17 RIGHT SHOULDER ARTHROSCOPY) - Suicide/Smoking/Psychosocial Hx Smoking History: Never smoked Have you smoked in the past 12 months: No Hx Alcohol Use: No Drug/Substance Use Hx: No Substance Use Type: None Hx Substance Use Treatment: No Review of Systems - Review of Systems Musculoskeletal: Yes: See HPI, Joint Pain All Other Systems: Reviewed and Negative *Physical Exam - Vital Signs Last Vital Signs Temp Pulse Resp BP Pulse Ox 98.0 F 97 H 16 157/68 98 02/26/18 11:55 02/26/18 11:55 02/26/18 11:55 02/26/18 11:55 02/26/18 11:55 - Physical Exam Comments: 02/26/18 1Left knee skin color and temperature are normal. There is no swelling. Range motion is full with some discomfort on the anterior aspect of the knee at terminal flexion. Mild tenderness diffusely about the anterior aspect of the knee. No evidence of instability or joint line tenderness. Thigh and calf are soft and nontender she is neurovascularly intact.2:33 ED Treatment Course - RADIOLOGY Radiology Studies Ordered: Category Date Time Status KNEE 3 POS-LEFT [RAD] Stat Radiology 02/26/18 12:04 Taken Medical Decision Making - Medical Decision Making Mild chondrocalcinosis no acute fracture on x-ray today moderate patellofemoral arthritis 02/26/18 12:33 *DC/Admit/Observation/Transfer Diagnosis at time of Disposition: Contusion, knee - Discharge Dispostion Disposition: HOME Condition at time of disposition: Stable Decision to Admit order: No - Referrals Referrals: Sherly Tompkins MD [Primary Care Provider] - Otf Cartwright MD [Staff Physician] - - Patient Instructions Printed Discharge Instructions: Contusion Additional Instructions: Return to the emergency room should symptoms worsen or go unresolved. Please follow-up with orthopedic surgery in 2-3 days for further evaluation and treatment options of your knee pain. - Post Discharge Activity
== END 2018-02-26 13:02 | disposition home or self-care (01) ==
LOC: JERFT 11:52
DX: S80.02XA Contusion of left knee, initial encounter (principal); W18.39XA Other fall on same level, initial encounter; Y93.A1 Activity, exercise machines primarily for cardiorespiratory conditioning; Y99.8 Other external cause status; Z85.72 Personal history of non-Hodgkin lymphomas
CPT/HCPCS: 73562-TC-LT-FY; 99281-25

== ENCOUNTER 2018-05-28 12:57 | Emergency (ER) | payer OTHER ==
[2018-05-28 13:16] VITALS: TEMP 98.3; BMI 32.0
--- NOTE | 2018-05-28 14:15 | PDOC ---
History of Present Illness - General Chief Complaint: Pain, Acute Stated Complaint: PAIN Time Seen by Provider: 05/28/18 13:45 - History of Present Illness Initial Comments: 05/28/18 14:14 73f with pmh of cholecystectomy back in September presents with RUQ pain over surgical site for the past week. The pain is 6-7/10 seemingly random, not exacerbated by movement or food. Patient is not taking any medication and the month after surgery until now were uneventful. Patient saw her PCP Dr. Ramos who recommended that she comes to the ER immediately for "an ultrasound" Only other abdominal surgery was appendectomy as a child. Denies fever, nausea, vomiting, constipation, diarrhea or skin changes/ drainage at the surgical site. Has not tried taking anything for the pain. 05/28/18 15:04 Past History - Past Medical History Allergies/Adverse Reactions: Allergies Allergy/AdvReac Type Severity Reaction Status Date / Time No Known Drug Allergies Allergy Verified 02/26/18 11:58 Home Medications: Ambulatory Orders NK [No Known Home Medication] 05/28/18 Anemia: No Asthma: No Cancer: Yes (HX OF LYMPHOMA 2010) Cardiac Disorders: No CVA: No COPD: No CHF: No Dementia: No Diabetes: No GI Disorders: No Disorders: No HTN: No Hypercholesterolemia: No Liver Disease: No Seizures: No Thyroid Disease: No - Surgical History Abdominal Surgery: No Appendectomy: Yes (MANY YEARS AGO) Cardiac Surgery: No Cholecystectomy: No Lung Surgery: No Neurologic Surgery: No Orthopedic Surgery: (08/29/17 RIGHT SHOULDER ARTHROSCOPY) - Immunization History Immunization Up to Date: No - Suicide/Smoking/Psychosocial Hx Smoking History: Never smoked Have you smoked in the past 12 months: No Information on smoking cessation initiated: No Hx Alcohol Use: No Drug/Substance Use Hx: No Substance Use Type: None Hx Substance Use Treatment: No Review of Systems - Review of Systems Able to Perform ROS?: Yes Is the patient limited Kyrgyz proficient: No Constitutional: No: Symptoms Reported HEENTM: No: Symptoms Reported Respiratory: No: Symptoms reported Cardiac (ROS): No: Symptoms Reported ABD/GI: Yes: See HPI. No: Symptoms Reported : No: Symptoms Reported Musculoskeletal: No: Symptoms Reported Integumentary: No: Symptoms Reported Neurological: No: Symptoms reported All Other Systems: Reviewed and Negative *Physical Exam - Vital Signs Last Vital Signs Temp Pulse Resp BP Pulse Ox 98.3 F 95 H 16 139/64 100 05/28/18 13:14 05/28/18 13:14 05/28/18 13:14 05/28/18 13:14 05/28/18 13:14 - Physical Exam General Appearance: Yes: Nourished, Appropriately Dressed. No: Apparent Distress HEENT: positive: EOMI, KENN, Normal ENT Inspection Respiratory/Chest: positive: Lungs Clear, Normal Breath Sounds. negative: Chest Tender, Respiratory Distress Cardiovascular: positive: Regular Rhythm, Regular Rate, S1, S2 Gastrointestinal/Abdominal: positive: Normal Bowel Sounds, Tender (tender over URQ over surgical scar.), Soft Musculoskeletal: positive: Normal Inspection. negative: CVA Tenderness Extremity: positive: Normal Capillary Refill, Normal Inspection, Normal Range of Motion Integumentary: positive: Normal Color, Dry, Warm Neurologic: positive: Fully Oriented, Alert, Normal Mood/Affect, Normal Response , Motor Strength 5/5 Moderate Sedation - Procedure Monitoring Vital Signs: Procedure Monitoring Vital Signs Temperature 98.3 F 05/28/18 13:14 Pulse Rate 95 H 05/28/18 13:14 Respiratory Rate 16 05/28/18 13:14 Blood Pressure 139/64 05/28/18 13:14 O2 Sat by Pulse Oximetry (%) 100 05/28/18 13:14 ED Treatment Course - LABORATORY CBC & Chemistry Diagram: 05/28/18 15:35 05/28/18 15:35 Medical Decision Making - Medical Decision Making 05/28/18 14:59 73f with pmh of cholecystitis 9 months ago presenting with RUQ pain. abdominal adhesions vs choledolithiasis vs pancreatitis vs renal colic 05/28/18 17:41 Will evaluate for adhesions s/p surgery since it's right over the site. Nephrolithiasis less likely unlikely due to absence of dysuria, and CVA tenderness. Will reconsider if blood in UA/ Will obtain labs and CT with IV contrast. CT Abdomen and pelvis: No definite CT findings of acute pathology are identified. Status post interval cholecystectomy comparison to a prior CT exam of 09/22/2017. The remainder of the exam demonstrates no definite interval change. 1 x 0.7 cm nonobstructing left renal calculus. Probable diffuse hepatic steatosis. Colonic diverticulosis. Small hilar hernia. Small umbilical hernia containing fat only. 05/28/18 18:00 Will discharge with follow up with Dr. Ramos tomorrow. *DC/Admit/Observation/Transfer Diagnosis at time of Disposition: Abdominal pain - Discharge Dispostion Disposition: HOME Condition at time of disposition: Stable Decision to Admit order: No - Referrals Referrals: Ez Ramos [Primary Care Provider] - - Patient Instructions Printed Discharge Instructions: DI for Abdominal Pain-Adult Additional Instructions: Follow up tomorrow with Dr. Ramos. Come back to the Emergency Department for any new, worsening or concerning symptoms. Print Language: URUGUAYAN - Post Discharge Activity
[2018-05-28] MEDS ORDERED: SODIUM CHLORIDE 1,000 ML IV STA (14:30)
--- NOTE | 2018-05-28 15:00 | PDOC ---
Attending Attestation - Resident Resident Name: AdrianeEloy - ED Attending Attestation I have performed the following: I have examined & evaluated the patient, The case was reviewed & discussed with the resident, I agree w/resident's findings & plan, Exceptions are as noted - HPI HPI: 05/28/18 15:51 The patient is a 73 year old female with a significant PMH of cholecystectomy in September 2017 (Dr. Waldron) who presents to the emergency department with a 1 week history of R sided abdominal pain. Patient states the pain is intermittent lasting for 2-3 minutes at a time, comes at random times, and is not exacerbated with food intake or movement. Patient denies any changes in appetite. Patient's last bowel movement was yesterday morning and was normal. Patient went to her PCP, Dr. Ramos, today who told her to come to the ER for an ultrasound. Patient denies an fever, chills, nausea, vomiting, diarrhea, or constipation. Denies CP, SOB, LE edema. Allergies: NKA Past surgical history: appendectomy, cholecystectomy Social history: No reported alcohol, drug or cigarette use. - Physicial Exam PE: 05/28/18 15:55 GENERAL: Awake, alert, and fully oriented, in no acute distress EYES: PERRLA, EOMI, sclera anicteric, conjunctiva clear ENT: Oropharynx clear without exudates. Moist mucosa LUNGS: Breath sounds equal, clear to auscultation bilaterally. No wheezes, and no crackles HEART: Regular rate and rhythm, normal S1 and S2, no murmurs, rubs or gallops ABDOMEN: Soft, RUQ and RLQ ttp, normoactive bowel sounds. No guarding, no rebound. No masses EXTREMITIES: Normal range of motion, no edema. No cords, erythema, or tenderness NEUROLOGICAL: Normal speech, cranial nerves intact, equal strength and sensation b/l SKIN: Warm, Dry, normal turgor, no rashes or lesions noted. - Medical Decision Making 05/28/18 16:00 73yo F hx cholecystectomy, appendectomy presents to the ED with one week of R sided abdominal pain. Vitals wnl. Exam with RLQ and RUQ ttp. DDx includes but not limited to renal colic vs pyelonephritis vs retained stone vs colitis. Plan: -labs -UA -CTAP -dispo 05/28/18 18:01 Labs wnl, no leukocytosis UA with 1+ LE, 13WBCs but also with mucous and epithelial cells. Pt has no urinary sxs, therefore will hold off on treating unless Ucx is positive Pt is feeling much better, currently denies abd pain and is hungry Tolerating PO Discussed results with Dr. Ramos who wants to see the pt tomorrow Plan communicated to pt who requests DC home I discussed the physical exam findings, ancillary test results and final diagnoses with the patient. I answered all of the patient's questions. The patient was satisfied with the care received and felt comfortable with the discharge plan and treatment plan. The patient will call their primary care physician within 24 hours to arrange follow-up and will return to the Emergency Department with any new, persistent or worsening symptoms.
[2018-05-28 15:50] LABS: BASO % 1.1 % (0-2.0); EOS % 7.8 % (0-4.5); HEMATOCRIT 41.8 % (32.4-45.2); HEMOGLOBIN 14.4 GM/dL (10.7-15.3); LYMPH % 21.5 % (8-40); MCH 31.9 pg (25.7-33.7); MCHC 34.4 g/dl (32.0-36.0); MEAN CELL VOLUME 92.6 fl (80-96); MEAN PLT VOLUME 8.8 fl (7.5-11.1); MONO % 7.5 % (3.8-10.2); NEUT % 62.1 % (42.8-82.8); PLATELET COUNT 300 K/MM3 (134-434); RBC 4.51 M/mm3 (3.60-5.2); RDW 13.9 % (11.6-15.6); WHITE BLOOD COUNT 7.3 K/mm3 (4.0-10.0)
[2018-05-28 15:53] LABS: URINE APPEARANCE SLCLOUDY; URINE BILIRUBIN NEGATIVE (<2.0 mg/dL); URINE COLOR YELLOW; URINE GLUCOSE (UA) NEGATIVE (NEGATIVE); URINE KETONE NEGATIVE (NEGATIVE); URINE LEUK ESTERASE 1+ (NEGATIVE); URINE NITRITE NEGATIVE (NEGATIVE); URINE PROTEIN NEGATIVE (NEGATIVE); URINE UROBILINOGEN NEGATIVE mg/dL (0.2-1.0)
[2018-05-28 15:58] LABS: EPI CELLS MODERATE /HPF (FEW); URINE MUCUS FEW
[2018-05-28 16:30] LABS: ALBUMIN 3.7 g/dl (3.4-5.0); ALK PHOS 107 U/L (45-117); ANION GAP 9 MMOL/L (8-16); BILIRUBIN,TOTAL 0.5 mg/dL (0.2-1); BLOOD UREA NITROGEN 20 mg/dL (7-18); CALCIUM 8.9 mg/dL (8.5-10.1); CHLORIDE 105 mmol/L (98-107); CO2 26 mmol/L (21-32); CREATININE 0.9 mg/dL (0.55-1.3); GLUCOSE,RANDOM 83 mg/dL (74-106); LIPASE 189 U/L (73-393); POTASSIUM 5.2 mmol/L (3.5-5.1); SGOT/AST 40 U/L (15-37); SGPT/ALT 30 U/L (13-61); SODIUM 140 mmol/L (136-145); TOT PROT 7.4 g/dl (6.4-8.2)
[2018-05-28 18:38] VITALS: BP 138/71; PULSE 90
== END 2018-05-28 18:39 | disposition home or self-care (01) ==
LOC: JER 12:57
PROC: 3E0337Z Introduction of Electrolytic and Water Balance Substance into Peripheral Vein, Percutaneous Approach (ICD-10-PCS; principal; 2018-05-28)
DX: R10.9 Unspecified abdominal pain (principal); C85.90 Non-Hodgkin lymphoma, unspecified, unspecified site
CPT/HCPCS: 36415; 74177-TC; 80053; 81003; 81015; 83605; 83690; 85025; 87086; 96360; 99282-25; J7030

== ENCOUNTER 2018-08-13 05:07 | Day surgery (SDC) | payer OTHER ==
[2018-08-12 08:57] VITALS: BMI 32.5
[2018-08-13] MEDS ORDERED: MIDAZOLAM HCL 2 MG/2 ML SINGLE DOSE VIAL ONE (12:15)
[2018-08-13] MEDS ORDERED: ACETAMINOPHEN 1000 MG/100 ML VIAL (NON FORMULARY) IVPB ONE (13:19)
--- NOTE | 2018-08-13 13:20 | HP ---
History & Physical Update - History History: No Change - Physical Physical: No Change - Assessment Assessment: No Change - Plan Plan: No Change
[2018-08-13] MEDS ORDERED: ceFAZolin SODIUM 1 GM VIAL IVPB ONE ×2 (13:24→13:25)
[2018-08-13] MEDS ORDERED: ceFAZolin SODIUM 1 GM VIAL ONE (13:25)
[2018-08-13] MEDS ORDERED: DEXTROSE 5%-0.45% SALINE 1,000 ML IV SCH (13:30)
[2018-08-13] MEDS ORDERED: IBUPROFEN 800 MG/8 ML IJ IVPB SCH (14:00)
[2018-08-13 14:52] VITALS: BP 142/81; PULSE 81; TEMP 97.9
--- NOTE | 2018-08-15 07:52 | OP ---
DATE OF OPERATION: 08/13/2018 PREOPERATIVE DIAGNOSIS: Left renal calculus. POSTOPERATIVE DIAGNOSIS: Left renal calculus. PROCEDURE: Left extracorporeal shock wave lithotripsy. SURGEON: Paul Babb MD ANESTHESIA: General. INTRAVENOUS ANTIBIOTICS GIVEN: Ancef 2 g. ESTIMATED BLOOD LOSS: None. FINDING: A 10-mm stone in the left kidney. PREOPERATIVE INDICATIONS: The patient is a 73-year-old female with a left kidney stone. She comes in for ESWL. THE OPERATION: The patient was brought to the OR, placed on the table in the supine position, given IV antibiotics and IV sedation. The stone was visualized on ultrasound and fluoroscopy. Then, 2500 shocks were applied to the stone, and stone was broken as seen on ultrasound. The patient tolerated the procedure well. She was woken up. PAUL BABB M.D. [id number]
== END 2018-08-13 14:55 | disposition home or self-care (01) ==
LOC: JASU-SURG 05:07
PROVIDERS: ATTEND Urology
PROC: 0TF4XZZ Fragmentation in Left Kidney Pelvis, External Approach (ICD-10-PCS; principal; 2018-08-13 12:30)
DX: N20.0 Calculus of kidney (principal)

== ENCOUNTER 2018-08-15 04:59 | Day surgery (SDC) | payer OTHER ==
[2018-08-14 08:29] VITALS: BMI 32.5
[2018-08-15] MEDS ORDERED: BUPIVACAINE HCL/PF 0.5% (5MG/ML) 10 ML VIAL ONE (10:03)
[2018-08-15] MEDS ORDERED: LIDOCAINE HCL 1%, 10 MG/ML (20ML VIAL) ONE (10:03)
[2018-08-15] MEDS ORDERED: ceFAZolin SODIUM 1 GM VIAL IVPB ONE (10:07)
--- NOTE | 2018-08-15 10:10 | HP ---
Satellite [facility] - Chief Complaint Chief Complaint: left knee pain - Past Medical History Allergies/Adverse Reactions: Allergies Allergy/AdvReac Type Severity Reaction Status Date / Time No Known Drug Allergies Allergy Verified 08/15/18 08:53 Heme/Onc: Yes: Other (lymphoma) Additional Medical History: obesity - Current Medications Current Medications: Home Medications Medication Instructions Recorded Oxycodone HCl/Acetaminophen 1 tab PO Q6H #20 tablet MDD 4 08/15/18 [Percocet 5-325 mg Tablet] Satellite Physical Exam - Physical Examination Vital Signs: Vital Signs Period Temp Pulse Resp BP Sys/Bellamy Pulse Ox Last 24 Hr 97.6 F 81 18 131/68 96 General Appearance: Well Nourished, Well Developed, Alert & Oriented x3 ENT: Clear Lung: Normal air movement Heart: Regular rate & rhythm Extremities: Other (left knee- + swelling, + ttp, decr rom, + mcmurrays, nvi MRI + mmt, lmt, djd) Neurological: Intact, Alert, Oriented Satellite Impression/Plan - Impression/Plan Impression: left knee internal derangement Operative Procedure: left knee arthroscopy Date to be Performed: 08/15/18
[2018-08-15] MEDS ORDERED: LIDOCAINE HCL/PF 2% SDV 5ML VIAL ONE ×2 (10:53→11:26)
[2018-08-15] MEDS ORDERED: ceFAZolin SODIUM 1 GM VIAL ONE (10:53)
[2018-08-15] MEDS ORDERED: PROPOFOL 20 ML ONE ×2 (10:53)
[2018-08-15] MEDS ORDERED: MIDAZOLAM HCL 2 MG/2 ML SINGLE DOSE VIAL ONE ×2 (10:54)
[2018-08-15] MEDS ORDERED: DESFLURANE GAS 240 ML BOTTLE IH ONE (10:56)
[2018-08-15] MEDS ORDERED: KETOROLAC TROMETHAMINE 30 MG/1 ML VIAL ONE (11:25)
[2018-08-15] MEDS ORDERED: DEXAMETHASONE SOD PHOSPHATE 4 MG/1 ML VIAL ONE (11:34)
--- NOTE | 2018-08-15 11:59 | OP ---
Operative Note - Note: Operative Date: 08/15/18 Pre-Operative Diagnosis: left knee pain, MM and LM tear, OA Operation: left knee arthroscopy, partial medial and lateral meniscectomy, debridement chondroplasty Post-Operative Diagnosis: Same as Pre-op Surgeon: Mohsen Bello Anesthesiologist/SUPERVISOR BEATER ROOM: [facility] Anesthesia: General, Local Specimens Removed: shavings Estimated Blood Loss (mls): 0 Drains, Volume Out (mls): 0 Blood Volume Replaced (mls): 0 Fluid Volume Replaced (mls): 500 Operative Report Dictated: Yes
[2018-08-15] MEDS ORDERED: ACETAMINOPHEN 500 MG TABLET (FP) PO PRN (12:05)
[2018-08-15] MEDS ORDERED: ONDANSETRON 4 MG/2 ML VIAL IVPUSH PRN (12:05)
[2018-08-15] MEDS ORDERED: oxyCODONE HCL 5 MG TABLET PO PRN (12:05)
[2018-08-15] MEDS ORDERED: LACTATED RINGERS SOLUTION 1,000 ML IV SCH (12:15)
[2018-08-15 14:17] VITALS: BP 141/78; PULSE 89; TEMP 97.9
--- NOTE | 2018-08-15 14:31 | OP ---
DATE OF OPERATION: 08/15/2018 PREOPERATIVE DIAGNOSES: Left knee pain, medial and lateral meniscus tears, as well as osteoarthritis. POSTOPERATIVE DIAGNOSES: Left knee pain, medial and lateral meniscus tears, as well as osteoarthritis. PROCEDURES: Left knee arthroscopy, partial medial and lateral meniscectomy, and debridement chondroplasty. SURGEON: Maximo Templeton MD ASSISTANTS: None. ANESTHESIOLOGIST: Apple Hassan MD ANESTHESIA: LMA anesthesia with local injection of 20 mL 0.5% Marcaine. DRAINS: None. COMPLICATIONS: None. SPECIMEN: Arthroscopic shavings. BLOOD GIVEN: None. FLUID REPLACEMENT: 500 mL Plasmalyte. PROCEDURE: The patient is a 73-year-old female with a preoperative diagnosis of left knee pain, medial and lateral meniscus tear, and osteoarthritis. After understanding the potential risks, complications, alternatives, benefits of surgical versus nonsurgical treatment, the patient elected to undergo this procedure. The patient clearly understands that her knee will not be perfect. She still has osteoarthritis. She may need other treatment including physical therapy, shots of cortisone and/or gel, and possibly a total knee replacement. The patient was brought to the operating room. Peripheral IV placed. IV sedation given. One gram of IV Ancef was given. LMA anesthesia was induced. Ample padding was placed throughout. She was placed supine in the leg maharaj. The left lower extremity was prepped and draped in a sterile fashion and the tourniquet inflated to 275 mmHg. A superior medial outflow portal was established. A lateral portal was established and the arthroscope was introduced into the joint using a spinal needle under direct visualization. A medial portal was established. Patient was seen to have a frayed, degenerative-type tear of the body and posterior horn of the medial meniscus. Overall, this part was not that bad. It was debrided with a curved shaver. In the medial compartment, the patient did have grade 1 changes of the medial tibial plateau, but the medial femoral condyle looked good. In the intercondylar notch, the patient's ACL looked good, but the patient had a tremendous amount of synovitis. She had very redundant ligamentum mucosum and a very hypertrophic Hoffa fat pad of the anterior aspect of the knee. This was all debrided. The ACL looked good. In the lateral compartment, the patient had a more significant tear of the body and posterior horn of the lateral meniscus. This was debrided with a curved shaver, but the lateral compartment overall looked good. After the partial and lateral meniscectomy, the patellofemoral joint was directly visualized and the patient had significant widespread areas of grade 4 osteoarthritis of the undersurface of the patella as well as the femoral trochlea. Both were debrided with the shaver. After this debridement chondroplasty, the area was copiously irrigated and washed out. All instrumentation removed. The excess saline and debris were removed. The arthroscopy portals were closed with 3-0 nylon sutures. Next, 20 mL of 0.5% Marcaine was introduced into the joint. The area was then washed and dried, covered with Xeroform gauze, 4 x 4 gauze, Webril, and an JAYY bandage. The tourniquet was taken down after a total tourniquet time of 24 minutes. There were no complications during the case. The patient tolerated the procedure quite well and was brought to the ambulatory recovery room in stable condition. MAXIMO TEMPLETON M.D. [id number]
--- NOTE | 2018-08-16 16:31 | PATH ---
Surgical Pathology Report Patient Name: KYLER ANDINO [facility]. Rec. #: [id number] /Age/Gender: 1945 (Age: 73) / F Account: [id number] Location: [facility] SURGICAL Taken: 08/15/2018 Received: 08/15/2018 Reported: 08/16/2018 Physicians: Mohsen Bello M.D. Specimen(s) Received LEFT KNEE SHAVINGS Clinical History Left knee tear Final Diagnosis KNEE SHAVINGS, LEFT, ARTHROSCOPY, PARTIAL MEDIAL AND LATERAL MENISCECTOMY, DEBRIDEMENT: FRAGMENTS OF DENSE FIBROCONNECTIVE TISSUE, ADIPOSE TISSUE, CARTILAGE, AND REACTIVE SYNOVIUM. Electronically Signed Shantelle Rivas M.D. Gross Description Received in formalin, labeled "left knee shavings," is a 5.5 x 4.5 x 0.7 cm. aggregate of cohn-yellow soft tissue fragments. A sales representative metals portion is submitted in one cassette. 08/15/201808/15/2018
== END 2018-08-15 14:05 | disposition home or self-care (01) ==
LOC: JASU-SURG 04:59
PROVIDERS: ATTEND Orthopaedic Surgery
PROC: 0SBD4ZZ Excision of Left Knee Joint, Percutaneous Endoscopic Approach (ICD-10-PCS; 2018-08-15)
PROC: 0SBD4ZZ Excision of Left Knee Joint, Percutaneous Endoscopic Approach (ICD-10-PCS; principal; 2018-08-15 10:00)
DX: S83.282A Other tear of lateral meniscus, current injury, left knee, initial encounter (principal); S83.242A Other tear of medial meniscus, current injury, left knee, initial encounter; M17.12 Unilateral primary osteoarthritis, left knee; X58.XXXA Exposure to other specified factors, initial encounter; Y93.9 Activity, unspecified; Y92.9 Unspecified place or not applicable
CPT/HCPCS: 88304-TC; 94760; 97116-GP

== ENCOUNTER 2018-08-20 16:28 | Emergency (ER) | payer OTHER ==
[2018-08-20 16:38] VITALS: BP 150/67; PULSE 100; TEMP 97.8; BMI 34.7
--- NOTE | 2018-08-20 16:43 | PDOC ---
Rapid Medical Evaluation Chief Complaint: Weakness Time Seen by Provider: 08/20/18 16:36 Medical Evaluation: Allergies Allergy/AdvReac Type Severity Reaction Status Date / Time No Known Drug Allergies Allergy Verified 08/20/18 16:32 08/20/18 16:38 I have performed a brief in-person evaluation of this patient. The patient presents with a chief complaint of: h/o kidney stones s/p lithotripsy done a week ago report 3 days h/o pain inside vagina and suprapubic discomfort. Pt also had knee replacement surgery done 4 days ago. Pt saw PCP who refer her to see urology but came here instead because urologist could not see her for another 3 days Pertinent physical exam findings: A&O x 3. I have ordered the following: UA, UCx. CBC, CMP The patient will proceed to the ED for further evaluation 08/20/18 16:44 Discharge Disposition - Diagnosis Suprapubic abdominal pain - Discharge Dispostion Condition at time of disposition: Stable - Referrals Referrals: Ez Ramos [Primary Care Provider] - - Patient Instructions - Post Discharge Activity
[2018-08-20 17:00] LABS: BASO % 0.7 % (0-2.0); EOS % 6.9 % (0-4.5); HEMATOCRIT 44.7 % (32.4-45.2); HEMOGLOBIN 15.3 GM/dL (10.7-15.3); LYMPH % 24.5 % (8-40); MCH 32.5 pg (25.7-33.7); MCHC 34.3 g/dl (32.0-36.0); MEAN CELL VOLUME 94.8 fl (80-96); MEAN PLT VOLUME 7.8 fl (7.5-11.1); MONO % 6.5 % (3.8-10.2); NEUT % 61.4 % (42.8-82.8); PLATELET COUNT 323 K/MM3 (134-434); RBC 4.71 M/mm3 (3.60-5.2); RDW 13.3 % (11.6-15.6); WHITE BLOOD COUNT 9.2 K/mm3 (4.0-10.0)
[2018-08-20 17:02] LABS: URINE APPEARANCE CLEAR; URINE BILIRUBIN NEGATIVE (<2.0 mg/dL); URINE COLOR LTYELLOW; URINE GLUCOSE (UA) NEGATIVE (NEGATIVE); URINE KETONE NEGATIVE (NEGATIVE); URINE LEUK ESTERASE TRACE (NEGATIVE); URINE NITRITE NEGATIVE (NEGATIVE); URINE PROTEIN NEGATIVE (NEGATIVE); URINE UROBILINOGEN NEGATIVE mg/dL (0.2-1.0)
[2018-08-20 17:06] LABS: EPI CELLS RARE /HPF (FEW); URINE MUCUS RARE
[2018-08-20 17:24] LABS: ALBUMIN 3.6 g/dl (3.4-5.0); ALK PHOS 119 U/L (45-117); ANION GAP 8 MMOL/L (8-16); BILIRUBIN,TOTAL 0.4 mg/dL (0.2-1); BLOOD UREA NITROGEN 18 mg/dL (7-18); CALCIUM 8.9 mg/dL (8.5-10.1); CHLORIDE 104 mmol/L (98-107); CO2 26 mmol/L (21-32); CREATININE 0.9 mg/dL (0.55-1.3); GLUCOSE,RANDOM 122 mg/dL (74-106); SGOT/AST 7 U/L (15-37); SGPT/ALT 26 U/L (13-61); SODIUM 138 mmol/L (136-145); TOT PROT 7.8 g/dl (6.4-8.2)
--- NOTE | 2018-08-20 18:56 | PDOC ---
History of Present Illness - General Chief Complaint: Weakness Stated Complaint: DOC REF. Time Seen by Provider: 08/20/18 16:36 History Source: Patient Exam Limitations: No Limitations - History of Present Illness Initial Comments: 08/20/18 18:55 73 yo female recently had lithotripsy (08/13) and meniscal repair (08/15) presents to the ED with 3 days of subjective fevers, left flank pain, suprapubic abdominal pain and burning on urination. Pt sent from PCP office for further investigation of symptoms today. Pt denies N/V, visible blood in urine, changes in bowel habits, SOB or CP Past History - Past Medical History Allergies/Adverse Reactions: Allergies Allergy/AdvReac Type Severity Reaction Status Date / Time No Known Drug Allergies Allergy Verified 08/20/18 16:32 Home Medications: Ambulatory Orders Oxycodone HCl/Acetaminophen [Percocet 5-325 mg Tablet] 1 tab PO Q6H #20 tablet MDD 4 08/15/18 Nitrofurantoin Macrocrystal [Nitrofurantoin] 100 mg PO BID 5 Days #10 capsule Anemia: No Asthma: No Cancer: Yes (HX OF LYMPHOMA 2010) Cardiac Disorders: No CVA: No COPD: No CHF: No Dementia: No Diabetes: No GI Disorders: No Disorders: Yes (KIDNEY STONES) HTN: No Hypercholesterolemia: No Liver Disease: No Seizures: No Thyroid Disease: No - Surgical History Abdominal Surgery: No Appendectomy: Yes (MANY YEARS AGO) Cardiac Surgery: No Cholecystectomy: No Lung Surgery: No Neurologic Surgery: No Orthopedic Surgery: Yes (08/29/17 RIGHT SHOULDER ARTHROSCOPY) - Immunization History Immunization Up to Date: No - Suicide/Smoking/Psychosocial Hx Smoking History: Never smoked Have you smoked in the past 12 months: No Hx Alcohol Use: No Drug/Substance Use Hx: No Substance Use Type: None Hx Substance Use Treatment: No Review of Systems - Review of Systems Constitutional: Yes: Chills, Fever Respiratory: No: Shortness of Breath Cardiac (ROS): No: Chest Pain, Edema ABD/GI: Yes: Other (suprapubic pain). No: Constipated, Diarrhea, Nausea, Vomiting : Yes: Burning, Dysuria, Flank Pain (left). No: Frequency, Hematuria, Incontinence Musculoskeletal: No: Back Pain *Physical Exam - Vital Signs Last Vital Signs Temp Pulse Resp BP Pulse Ox 97.8 F 100 H 18 150/67 98 08/20/18 16:35 08/20/18 16:35 08/20/18 16:35 08/20/18 16:35 08/20/18 16:35 - Physical Exam General Appearance: Yes: Nourished, Appropriately Dressed. No: Apparent Distress HEENT: positive: EOMI Respiratory/Chest: positive: Lungs Clear, Normal Breath Sounds. negative: Accessory Muscle Use, Crackles, Rales, Wheezing Cardiovascular: positive: Regular Rhythm, Regular Rate. negative: Edema, JVD Vascular Pulses: Dorsalis-Pedis (R): 4+, Doralis-Pedis (L): 4+ Gastrointestinal/Abdominal: positive: Flat, Soft, Tenderness (suprapubic). negative: Pulsatile Mass, Distended, Guarding, Rebound Musculoskeletal: negative: CVA Tenderness Extremity: positive: Normal Capillary Refill, Normal Inspection Integumentary: positive: Normal Color, Dry, Warm Neurologic: positive: Fully Oriented, Alert, Normal Mood/Affect, Normal Response Moderate Sedation - Procedure Monitoring Vital Signs: Procedure Monitoring Vital Signs Temperature 97.8 F 08/20/18 16:35 Pulse Rate 100 H 08/20/18 16:35 Respiratory Rate 18 08/20/18 16:35 Blood Pressure 150/67 08/20/18 16:35 O2 Sat by Pulse Oximetry (%) 98 08/20/18 16:35 ED Treatment Course - LABORATORY CBC & Chemistry Diagram: 08/20/18 16:48 08/20/18 16:48 - ADDITIONAL ORDERS Additional order review: Laboratory Results 08/20/18 08/20/18 16:53 16:48 Sodium 138 Potassium 4.0 Chloride 104 Carbon Dioxide 26 Anion Gap 8 BUN 18 Creatinine 0.9 Creat Clearance w eGFR > 60 Random Glucose 122 H Calcium 8.9 Total Bilirubin 0.4 AST 7 L ALT 26 Alkaline Phosphatase 119 H Total Protein 7.8 Albumin 3.6 Urine Color Ltyellow Urine Appearance Clear Urine pH 6.0 Ur Specific [place] 1.011 Urine Protein Negative Urine Glucose (UA) Negative Urine Ketones Negative Urine Blood 3+ H Urine Nitrite Negative Urine Bilirubin Negative Urine Urobilinogen Negative Ur Leukocyte Esterase Trace Urine WBC (Auto) 3 Urine RBC (Auto) 3 Ur Epithelial Cells Rare Urine Mucus Rare 08/20/18 16:48 RBC 4.71 MCV 94.8 MCHC 34.3 RDW 13.3 MPV 7.8 Neutrophils % 61.4 Lymphocytes % 24.5 D Monocytes % 6.5 Eosinophils % 6.9 H Basophils % 0.7 Medical Decision Making - Medical Decision Making Vitals stable, no fevers or elevated HR CBC no leukocytosis UA shows 3+ blood but no bacteremia No flank/CVA tenderness on exam Renal US shows 10 mm non obstructing stone in the kidney pole without hydronephrosis Due to pts new complaints of subjective fevers, suprapubic abdominal pain and burning on urination, Antibiotics for uncomplicated UTI sent to pharmacy and pt will f/u with Urology Pt understands plan *DC/Admit/Observation/Transfer Diagnosis at time of Disposition: Suprapubic abdominal pain - Discharge Dispostion Disposition: HOME Condition at time of disposition: Stable - Prescriptions Prescriptions: Nitrofurantoin Macrocrystal [Nitrofurantoin] 100 mg PO BID 5 Days #10 capsule - Referrals Referrals: Ez Ramos [Primary Care Provider] - Paul Babb MD [Staff Physician] - - Patient Instructions Printed Discharge Instructions: DI for Kidney Stones Additional Instructions: Please see your Primary Doctor within the next 48 hours. Call your Urologist and schedule the closest appointment. Take the antibiotics as prescribed. Return to the ER for new or concerning symptoms including but not limited to: severe pain in the back, inability to eat or drink, visible blood in the urine, high fevers. Thank you - Post Discharge Activity
--- NOTE | 2018-08-20 19:48 | PDOC ---
Attending Attestation - HPI HPI: 08/20/18 20:21 The patient is a 73 year old female, with a significant past medical history of cholecystectomy in September 2017 (Dr. Waldron), recent lithotripsy (08/13), and recent left meniscus tear surgery (08/15), who presents to the emergency department with, suprapubic discomfort and dysuria. Patient was referred to urologist by PCP, however, has not followed up yet. She denies recent nausea, vomit, diarrhea or constipation. She denies recent hematuria. She denies recent chest pain or shortness of breath. Allergies: NKDA Primary Care Physician: Ez Mcguire <Jane Michelle - Last Filed: 08/20/18 21:34> - Resident Resident Name: Rich Louis - ED Attending Attestation I have performed the following: I have examined & evaluated the patient, The case was reviewed & discussed with the resident, I agree w/resident's findings & plan, Exceptions are as noted - Physicial Exam PE: 08/20/18 19:59 wnwd 73 yo female p/w complaints of back pain and dysuria s/p lithotripsy on Sunday head ncat neck supple lungs cta b/l cvs [id number] abd no rebound,no guarding low back pain around L5,no pinpoint vertebral tenderness ext left knee is bandaged from recent arthroscopy , no red streaking on left leg,no pitting edema neuro axox3,ambulatory skin warm and dry psych appropriate - Medical Decision Making 08/20/18 21:35 renal ultrasound was negative for any ureteral obstruction,there was no hydronephrosis,there was a 1 cm calculus in the kidney pole UA no bacteremia cbc unremarkable comp unremarkable pt discharged home to followup with her urology <Chayo Miller - Last Filed: 08/20/18 21:41> Attestations - Attestations 08/20/18 20:21 Documentation prepared by Jane Michelle, acting as medical laboratory technical officer for Chayo Miller MD. <Jane Michelle - Last Filed: 08/20/18 21:34>
[2018-08-20] MEDS ORDERED: NITROFURANTOIN MACROCRYSTAL 50 MG CAPSULE (FP) ONE (21:39)
[2018-08-20] MEDS ORDERED: NITROFURANTOIN MACROCRYSTAL 50 MG CAPSULE (FP) PO SCH (21:45)
== END 2018-08-20 21:43 | disposition home or self-care (01) ==
LOC: JER 16:28
DX: N13.2 Hydronephrosis with renal and ureteral calculous obstruction (principal); N39.0 Urinary tract infection, site not specified
CPT/HCPCS: 36415; 76775-TC; 80053; 81003; 81015; 85025; 87086; 99285-25

== ENCOUNTER 2018-10-24 11:12 | Inpatient (IN) | payer OTHER ==
--- NOTE | 2018-10-24 11:43 | PDOC ---
History of Present Illness - General Chief Complaint: Respiratory Stated Complaint: fever/chills,back pain and elevated BP Time Seen by Provider: 10/24/18 11:43 History Source: Patient - History of Present Illness Initial Comments: 10/24/18 12:07 The patient is a 73 year old female with a reported h/o Lymphoma (s/p chemotherapy) who presents to our ED c/o acute onset of back pain, subjective fever and chills yesterday. Back pain is localized to her lower back, aching, constant. No numbness, changes in bowel or bladder habits. Also notes 1 month h/o productive (greenish sputum) cough w/o shortness of breath, chest pain. States she called her PMD this morning who told her to come to the ED. NKDA Surgical: R rotator cuff,appendectomy, L meniscal repair Social: lifetime non-smoker, denies other toxic habits PMD: As per EMR, patient evaluated in ED in August 2018 for dyuria/flank pain. Treated for symptomatic UTI, urine cultures negative. Past History - Past Medical History Allergies/Adverse Reactions: Allergies Allergy/AdvReac Type Severity Reaction Status Date / Time No Known Drug Allergies Allergy Verified 10/24/18 11:15 Home Medications: Ambulatory Orders NK [No Known Home Medication] 10/24/18 Anemia: No Asthma: No Cancer: Yes (HX OF LYMPHOMA 2010) Cardiac Disorders: No CVA: No COPD: No CHF: No Dementia: No Diabetes: No GI Disorders: No Disorders: Yes (KIDNEY STONES) HTN: No Hypercholesterolemia: No Liver Disease: No Seizures: No Thyroid Disease: No - Surgical History Abdominal Surgery: No Appendectomy: Yes (MANY YEARS AGO) Cardiac Surgery: No Cholecystectomy: No Lung Surgery: No Neurologic Surgery: No Orthopedic Surgery: Yes (08/29/17 RIGHT SHOULDER ARTHROSCOPY) - Immunization History Immunization Up to Date: No - Suicide/Smoking/Psychosocial Hx Smoking History: Never smoked Have you smoked in the past 12 months: No Hx Alcohol Use: No Drug/Substance Use Hx: No Substance Use Type: None Hx Substance Use Treatment: No Review of Systems - Review of Systems Constitutional: Yes: Chills, Fever HEENTM: No: Recent change in vision Respiratory: Yes: Productive cough. No: Shortness of Breath, Wheezing Cardiac (ROS): No: Chest Pain, Lightheadedness, Palpitations, Syncope ABD/GI: No: Constipated, Diarrhea, Nausea, Vomiting *Physical Exam - Vital Signs Last Vital Signs Temp Pulse Resp BP Pulse Ox 98.5 F 117 H 16 132/77 97 10/24/18 11:14 10/24/18 11:14 10/24/18 11:14 10/24/18 11:14 10/24/18 11:14 - Physical Exam General Appearance: Yes: Nourished, Appropriately Dressed, Obese HEENT: positive: Normal Voice, Pharyngeal Erythema, Hearing Grossly Normal Neck: positive: Trachea midline, Supple Respiratory/Chest: positive: Lungs Clear, Normal Breath Sounds. negative: Crackles, Wheezing Cardiovascular: positive: Tachycardia. negative: JVD Vascular Pulses: Dorsalis-Pedis (R): 2+, Doralis-Pedis (L): 2+ Gastrointestinal/Abdominal: positive: Normal Bowel Sounds, Soft. negative: Distended, Guarding, Rebound, Tenderness Musculoskeletal: negative: CVA Tenderness (R), CVA Tenderness (L) Extremity: positive: Normal Capillary Refill, Normal Inspection Integumentary: positive: Normal Color, Dry, Warm Neurologic: positive: Fully Oriented, Alert ED Treatment Course - LABORATORY CBC & Chemistry Diagram: 10/24/18 12:57 10/24/18 13:14 Medical Decision Making - Medical Decision Making 10/24/18 13:08 73 year old female no reported PMH presents w/acute onset of back pain, subjective fever, chills. H/ productive cough. Tachycardic (HR 117) other VS unremarkable (oral temperature). Frontal diagnosis: Influenza vs. PNA vs. Viral URI. Also consider Strep as patient c/o sore throat, mildly erythematous oropharnyx. Will obtain basic labs, CXR, EKG, Rectal Temp. IV hydration + Tylenol for symptomatic relief 10/24/18 13:38 Mild leukocytosis CMP, Rectal Temp, CXR pending. 10/24/18 14:30 CXR shows L sided infiltrate, no effusion Rectal Temperature 101 (s/p Tylenol) Influenza Negative, Rapid Strep negative 10/24/18 14:31 HR 99 S/p 1 L fluid Daughter @ bedside reports patient has h/o non-adherence to medication regimen CURB 65 - 2 10/24/18 14:41 Call placed to patient's PMD, Dr. Ramos - counseled on pending admission 10/24/18 15:02 Case d/w Hospitalist MANAGER RAIL; patient admitted to Hospitalist service Patient reassessed @ bedside VSS Counseled on plan of care including admission; amenable to admission CAP Abx w/Ceftriaxone, Azithromycin Clinical Impression: CAP *DC/Admit/Observation/Transfer Diagnosis at time of Disposition: Community acquired pneumonia - Discharge Dispostion Condition at time of disposition: Fair Decision to Admit order: Yes - Referrals - Patient Instructions - Post Discharge Activity
[2018-10-24] MEDS ORDERED: SODIUM CHLORIDE 0.9% 500 ML INFUS.BAG IV ONE (12:10)
[2018-10-24] MEDS ORDERED: ACETAMINOPHEN 1000 MG/100 ML VIAL (NON FORMULARY) IVPB ONE (12:16)
[2018-10-24] MEDS ORDERED: ACETAMINOPHEN INJECTION 100 ML IVPB ONE (13:08)
[2018-10-24 13:28] LABS: BASO % 0.3 % (0-2.0); EOS % 3.6 % (0-4.5); HEMATOCRIT 45.6 % (32.4-45.2); HEMOGLOBIN 15.4 GM/dl (10.7-15.3); LYMPH % 9.3 % (8-40); MCH 32.2 pg (25.7-33.7); MCHC 33.8 g/dl (32.0-36.0); MEAN CELL VOLUME 95.3 fl (80-96); MEAN PLT VOLUME 9.1 fl (7.5-11.1); MONO % 6.9 % (3.8-10.2); NEUT % 79.9 % (42.8-82.8); PLATELET COUNT 250 K/MM3 (134-434); RBC 4.79 M/mm3 (3.60-5.2); RDW 12.9 % (11.6-15.6); WHITE BLOOD COUNT 12.9 K/mm3 (4.0-10.8)
[2018-10-24 13:33] LABS: EPITHELIAL CELLS 1+ /hpf
[2018-10-24 13:36] LABS: BILIRUBIN,TOTAL 0.6 mg/dl (0.2-1); CALCIUM 9.2 mg/dl (8.5-10); CREATININE 0.8 mg/dl (0.55-1.3); TOT PROT 7.5 g/dl (6.4-8.2)
[2018-10-24] MEDS ORDERED: AZITHROMYCIN IVPB 500 MG in DEXTROSE 5%-WATER - 250 ML IVPB ONE (14:56)
[2018-10-24] MEDS ORDERED: IBUPROFEN 400 MG TABLET (FP) PO ONE ×2 (15:00→15:33)
[2018-10-24] MEDS ORDERED: cefTRIAXone SODIUM 1 GM VIAL ONE (15:19)
[2018-10-24] MEDS ORDERED: AZITHROMYCIN 500 MG VIAL IVPB ONE (15:19)
--- NOTE | 2018-10-24 15:36 | HP ---
CHIEF COMPLAINT: Back pain, subjective fever, chills PCP: Dr. Ramos HISTORY OF PRESENT ILLNESS: 73 year-old female with a PMH significant for non-Hodkins lymphoma in remission x 8 years, and two recent surgical interventions: lithotripsy 08/13/18, left knee arthroscopy 08/15/18. Presents to the ED today with back pain, and subjective fever and chills x 1 day. Back pain is localized to the middle of her back, worse with coughing. Patient also reports cough productive of yellowish sputum x 1 month. She called her PMD this morning who told her to come to the ED. ER course was notable for: (1) T101.1, WBC 11.0, p117, lactic acid 2.2 (2) CXR: left infiltrate (3) NS x 1L; ceftriaxone x 1; azithro x 1 Recent Travel: No PAST MEDICAL HISTORY: Gastric lymphoma s/p chemotherapy in remission Renal calculi Diverticulosis PAST SURGICAL HISTORY: Appendectomy Right shoulder arthroscopy/rotator cuff repair (2018) Cholecystectomy (2018) Left knee arthroscopy (08/13/2018) Lithotripsy (08/15/2018) Social History: Smoking: never Alcohol: denies Drugs: denies Family History: noncontributory Allergies No Known Drug Allergies Allergy (Verified 10/24/18 11:15) HOME MEDICATIONS: Home Medications Medication Instructions Recorded NK [No Known Home Medication] 10/24/18 REVIEW OF SYSTEMS CONSTITUTIONAL: +fever, chills Absent: fever, chills, diaphoresis, generalized weakness, malaise, loss of appetite, weight change HEENT: Absent: rhinorrhea, nasal congestion, throat pain, throat swelling, difficulty swallowing, mouth swelling, ear pain, eye pain, visual changes CARDIOVASCULAR: Absent: chest pain, syncope, palpitations, irregular heart rate, lightheadedness , peripheral edema RESPIRATORY: +productive cough, greenish sputum Absent: shortness of breath, dyspnea with exertion, orthopnea, wheezing, stridor , hemoptysis GASTROINTESTINAL: Absent: abdominal pain, abdominal distension, nausea, vomiting, diarrhea, constipation, melena, hematochezia GENITOURINARY: Absent: dysuria, frequency, urgency, hesitancy, hematuria, flank pain, genital pain MUSCULOSKELETAL: +back pain Absent: myalgia, arthralgia, joint swelling, back pain, neck pain SKIN: Absent: rash, itching, pallor HEMATOLOGIC/IMMUNOLOGIC: Absent: easy bleeding, easy bruising, lymphadenopathy, frequent infections ENDOCRINE: Absent: unexplained weight gain, unexplained weight loss, heat intolerance, cold intolerance NEUROLOGIC: Absent: headache, focal weakness or paresthesias, dizziness, unsteady gait, seizure, mental status changes, bladder or bowel incontinence PSYCHIATRIC: Absent: anxiety, depression, suicidal or homicidal ideation, hallucinations. PHYSICAL EXAMINATION Vital Signs - 24 hr 10/24/18 10/24/18 10/24/18 11:14 14:07 14:13 Temperature 98.5 F 101.1 F H Pulse Rate 117 H Pulse Rate [ 98 H Apical] Respiratory 16 20 Rate Blood Pressure 132/77 O2 Sat by Pulse 97 98 Oximetry (%) GENERAL: Awake, alert, and fully oriented. Ill appearing. LUNGS: Breath sounds equal, clear to auscultation bilaterally. No wheezes, and no crackles. No accessory muscle use. HEART: Regular rate and rhythm, normal S1 and S2 ABDOMEN: Soft, nontender, not distended MUSCULOSKELETAL: Normal range of motion at all joints. No bony deformities or tenderness. No CVA tenderness. UPPER EXTREMITIES: 2+ pulses, warm, well-perfused. No cyanosis. No clubbing. No peripheral edema. LOWER EXTREMITIES: 2+ pulses, warm, well-perfused. No calf tenderness. No peripheral edema. NEUROLOGICAL: Cranial nerves II-XII intact. Normal speech. Laboratory Results - last 24 hr 10/24/18 10/24/18 10/24/18 12:20 12:57 12:57 WBC 12.9 H RBC 4.79 Hgb 15.4 H Hct 45.6 H MCV 95.3 MCH 32.2 MCHC 33.8 RDW 12.9 Plt Count 250 MPV 9.1 Absolute Neuts (auto) 10.2 Neutrophils % 79.9 Lymphocytes % 9.3 Monocytes % 6.9 Eosinophils % 3.6 Basophils % 0.3 Sodium Potassium Chloride Carbon Dioxide Anion Gap BUN Creatinine Est GFR (CKD-EPI)AfAm Est GFR (CKD-EPI)NonAf Random Glucose Calcium Total Bilirubin AST ALT Alkaline Phosphatase Troponin I Total Protein Albumin Urine Color Yellow Urine Appearance Clear Urine pH 5.5 Urine Protein Negative Urine Glucose (UA) Negative Urine Ketones 1+ H Urine Blood Trace-intact Urine Nitrite Negative Urine Bilirubin Negative Urine Urobilinogen 0.2 Ur Leukocyte Esterase Negative Urine RBC 0-3 Urine WBC 0-3 Ur Transition Epith Cell 1+ Influenza A (Rapid) Influenza B (Rapid) Group A Strep Rapid Negative 10/24/18 10/24/18 10/24/18 12:57 12:57 13:14 WBC RBC Hgb Hct MCV MCH MCHC RDW Plt Count MPV Absolute Neuts (auto) Neutrophils % Lymphocytes % Monocytes % Eosinophils % Basophils % Sodium 137 Potassium 4.0 Chloride 98 Carbon Dioxide 22 Anion Gap 17 H BUN 22 H Creatinine 0.8 Est GFR (CKD-EPI)AfAm 85.97 Est GFR (CKD-EPI)NonAf 74.17 Random Glucose 101 Calcium 9.2 Total Bilirubin 0.6 AST 19 ALT 18 Alkaline Phosphatase 103 Troponin I < 0.03 Total Protein 7.5 Albumin 4.0 Urine Color Urine Appearance Urine pH Urine Protein Urine Glucose (UA) Urine Ketones Urine Blood Urine Nitrite Urine Bilirubin Urine Urobilinogen Ur Leukocyte Esterase Urine RBC Urine WBC Ur Transition Epith Cell Influenza A (Rapid) Negative Influenza B (Rapid) Negative Group A Strep Rapid ASSESSMENT/PLAN: 73 year-old female with a PMH significant for non-Hodkins lymphoma. Placed on observation for severe sepsis secondary to CAP. Severe sepsis secondary to CAP --T101.1, WBC 11.0, p117, lactic acid 2.2, CXR with left infiltrate on admission --flu negative, cultures pending --received NS x 1L in ED, give additional 1.5L now --continue ceftriaxone, azithromycin (will treat this as CAP; two hospitalizations in July <48 hours) --duonebs scheduled --repeat cxr in am --repeat lactic acid Non-Hodgkins lymphona --in remission x 8 years, stable FEN Fluids: NS@75mL/hr Electrolytes: replete as indicated Nutrition: regular diet DVT prophylaxis: subq lovenox Dispo: continues to require inpatient care. Full code. Visit type - Emergency Visit Emergency Visit: Yes ED Registration Date: 10/24/18 Care time: The patient presented to the Emergency Department on the above date and was hospitalized for further evaluation of their emergent condition. - New Patient This patient is new to me today: Yes Date on this admission: 10/25/18 - Critical Care Critical Care patient: No
[2018-10-24] MEDS ORDERED: SODIUM CHLORIDE 1,000 ML IV STA (16:27)
--- NOTE | 2018-10-24 17:22 | PDOC ---
Attending Attestation - Resident Resident Name: Alvina Butcher - ED Attending Attestation I have performed the following: I have examined & evaluated the patient, The case was reviewed & discussed with the resident, I agree w/resident's findings & plan, Exceptions are as noted - HPI HPI: 10/24/18 17:21 Reviwed Residents HPI - Physicial Exam PE: 10/24/18 17:21 Reviewed residents PE - Medical Decision Making 10/24/18 17:22 Fever tachycardia elevated white blood cell count patient per family noncompliant with medications at home we'll admit for community-acquired pneumonia we'll treat with ceftriaxone and azithromycin fluids and further management. EKG demonstrates sinus tachycardia no acute ischemic changes noted.
[2018-10-24 18:52] VITALS: BMI 35.9
[2018-10-24] MEDS ORDERED: SODIUM CHLORIDE 500 ML IV STA (19:57)
[2018-10-24] MEDS: ALBUTEROL SO4 2.5/IPRATROPIUM 0.5 INH SOL 3 ML VIAL.NEB. NEB SCH (20:16)
[2018-10-24] MEDS: SODIUM CHLORIDE 1,000 ML IV SCH (21:00)
[2018-10-25] MEDS: ACETAMINOPHEN 325 MG TABLET (FP) PO PRN ×2 (01:53→10:18)
[2018-10-25 08:32] LABS: ACTIVATED PTT 25.6 SECONDS (25.2-36.5)
[2018-10-25 08:34] LABS: ALBUMIN 3.1 g/dl (3.4-5.0); BILIRUBIN,TOTAL 0.7 mg/dl (0.2-1); CALCIUM 8.4 mg/dl (8.5-10); CREATININE 0.7 mg/dl (0.55-1.3); MAGNESIUM 1.9 mg/dL (1.8-2.4); POTASSIUM 3.9 mmol/L (3.5-5.1); TOT PROT 5.7 g/dl (6.4-8.2)
[2018-10-25 08:36] LABS: INR 1.23 (0.82-1.09); PROTHROMBIN TIME (PATIENT) 13.7 SEC (10.2-13.0)
[2018-10-25 09:12] LABS: EOS % 3.3 % (0-4.5); HEMATOCRIT 41.1 % (32.4-45.2); HEMOGLOBIN 13.3 GM/dl (10.7-15.3); LYMPH % 10.6 % (8-40); MCH 31.3 pg (25.7-33.7); MCHC 32.3 g/dl (32.0-36.0); MEAN CELL VOLUME 96.9 fl (80-96); MEAN PLT VOLUME 8.8 fl (7.5-11.1); MONO % 7.8 % (3.8-10.2); NEUT % 78.3 % (42.8-82.8); PLATELET COUNT 261 K/MM3 (134-434); RBC 4.24 M/mm3 (3.60-5.2); RDW 13.3 % (11.6-15.6)
--- NOTE | 2018-10-25 09:45 | PN ---
Physical Exam: SUBJECTIVE: Patient seen and examined at bedside. Complaining of headache. OBJECTIVE: Vital Signs Period Temp Pulse Resp BP Sys/Bellamy Pulse Ox Last 24 Hr 98.0 F-101.1 F 76-117 16-20 98-138/44-83 95-99 GENERAL: Awake, alert, and fully oriented. Ill appearing. LUNGS: Breath sounds equal, clear to auscultation bilaterally. No wheezes, and no crackles. No accessory muscle use. HEART: Regular rate and rhythm, normal S1 and S2 ABDOMEN: Soft, nontender, not distended MUSCULOSKELETAL: Normal range of motion at all joints. No bony deformities or tenderness. No CVA tenderness. UPPER EXTREMITIES: 2+ pulses, warm, well-perfused. No cyanosis. No clubbing. No peripheral edema. LOWER EXTREMITIES: 2+ pulses, warm, well-perfused. No calf tenderness. No peripheral edema. NEUROLOGICAL: Cranial nerves II-XII intact. Normal speech. Laboratory Results - last 24 hr 10/24/18 10/24/18 10/24/18 12:20 12:57 12:57 WBC 12.9 H RBC 4.79 Hgb 15.4 H Hct 45.6 H MCV 95.3 MCH 32.2 MCHC 33.8 RDW 12.9 Plt Count 250 MPV 9.1 Absolute Neuts (auto) 10.2 Neutrophils % 79.9 Lymphocytes % 9.3 Monocytes % 6.9 Eosinophils % 3.6 Basophils % 0.3 PT with INR INR PTT (Actin FS) Sodium Potassium Chloride Carbon Dioxide Anion Gap BUN Creatinine Est GFR (CKD-EPI)AfAm Est GFR (CKD-EPI)NonAf Random Glucose Lactic Acid Calcium Magnesium Total Bilirubin AST ALT Alkaline Phosphatase Troponin I Total Protein Albumin Urine Color Yellow Urine Appearance Clear Urine pH 5.5 Urine Protein Negative Urine Glucose (UA) Negative Urine Ketones 1+ H Urine Blood Trace-intact Urine Nitrite Negative Urine Bilirubin Negative Urine Urobilinogen 0.2 Ur Leukocyte Esterase Negative Urine RBC 0-3 Urine WBC 0-3 Ur Transition Epith Cell 1+ Influenza A (Rapid) Influenza B (Rapid) Group A Strep Rapid Negative 10/24/18 10/24/18 10/24/18 12:57 12:57 13:14 WBC RBC Hgb Hct MCV MCH MCHC RDW Plt Count MPV Absolute Neuts (auto) Neutrophils % Lymphocytes % Monocytes % Eosinophils % Basophils % PT with INR INR PTT (Actin FS) Sodium 137 Potassium 4.0 Chloride 98 Carbon Dioxide 22 Anion Gap 17 H BUN 22 H Creatinine 0.8 Est GFR (CKD-EPI)AfAm 85.97 Est GFR (CKD-EPI)NonAf 74.17 Random Glucose 101 Lactic Acid Calcium 9.2 Magnesium Total Bilirubin 0.6 AST 19 ALT 18 Alkaline Phosphatase 103 Troponin I < 0.03 Total Protein 7.5 Albumin 4.0 Urine Color Urine Appearance Urine pH Urine Protein Urine Glucose (UA) Urine Ketones Urine Blood Urine Nitrite Urine Bilirubin Urine Urobilinogen Ur Leukocyte Esterase Urine RBC Urine WBC Ur Transition Epith Cell Influenza A (Rapid) Negative Influenza B (Rapid) Negative Group A Strep Rapid 10/24/18 10/25/18 10/25/18 17:04 07:33 07:33 WBC 11.0 H RBC 4.24 Hgb 13.3 Hct 41.1 MCV 96.9 H MCH 31.3 MCHC 32.3 RDW 13.3 Plt Count 261 MPV 8.8 Absolute Neuts (auto) 8.5 Neutrophils % 78.3 Lymphocytes % 10.6 Monocytes % 7.8 Eosinophils % 3.3 Basophils % 0.0 PT with INR 13.7 H INR 1.23 H PTT (Actin FS) 25.6 Sodium Potassium Chloride Carbon Dioxide Anion Gap BUN Creatinine Est GFR (CKD-EPI)AfAm Est GFR (CKD-EPI)NonAf Random Glucose Lactic Acid 2.2 H* Calcium Magnesium Total Bilirubin AST ALT Alkaline Phosphatase Troponin I Total Protein Albumin Urine Color Urine Appearance Urine pH Urine Protein Urine Glucose (UA) Urine Ketones Urine Blood Urine Nitrite Urine Bilirubin Urine Urobilinogen Ur Leukocyte Esterase Urine RBC Urine WBC Ur Transition Epith Cell Influenza A (Rapid) Influenza B (Rapid) Group A Strep Rapid 10/25/18 07:33 WBC RBC Hgb Hct MCV MCH MCHC RDW Plt Count MPV Absolute Neuts (auto) Neutrophils % Lymphocytes % Monocytes % Eosinophils % Basophils % PT with INR INR PTT (Actin FS) Sodium 139 Potassium 3.9 Chloride 108 H Carbon Dioxide 21 Anion Gap 10 BUN 15 Creatinine 0.7 Est GFR (CKD-EPI)AfAm 101.03 Est GFR (CKD-EPI)NonAf 87.17 Random Glucose 107 H Lactic Acid Calcium 8.4 L Magnesium 1.9 Total Bilirubin 0.7 AST 17 ALT 16 Alkaline Phosphatase 78 D Troponin I Total Protein 5.7 L Albumin 3.1 L Urine Color Urine Appearance Urine pH Urine Protein Urine Glucose (UA) Urine Ketones Urine Blood Urine Nitrite Urine Bilirubin Urine Urobilinogen Ur Leukocyte Esterase Urine RBC Urine WBC Ur Transition Epith Cell Influenza A (Rapid) Influenza B (Rapid) Group A Strep Rapid Active Medications Generic Name Dose Route Start Last Admin Trade Name Freq PRN Reason Stop Dose Admin Acetaminophen 650 mg 10/24/18 16:27 10/25/18 01:53 Tylenol - PO 650 mg Q6H PRN Administration FEVER Albuterol/Ipratropium 1 amp 10/24/18 20:00 10/24/18 20:16 Duoneb - NEB 1 amp RTID TRACEY Administration Enoxaparin Sodium 40 mg 10/25/18 10:00 Lovenox - SQ DAILY TRACEY Azithromycin 500 mg in 250 mls @ 250 mls/hr 10/25/18 10:00 Zithromax 500mg Ivpb (Pre-Docked) IVPB DAILY TRACEY Ceftriaxone Sodium 50 mls @ 100 mls/hr 10/25/18 10:00 Ceftriaxone 1 Gm-D5w Bag IVPB DAILY TRACEY Protocol Sodium Chloride 1,000 mls @ 75 mls/hr 10/24/18 21:00 10/24/18 21:00 Normal Saline - IV 75 mls/hr ASDIR TRACEY Administration Pneumococcal 13-Valent Conj Vacc 0.5 ml 10/25/18 11:00 Prevnar 13 Syringe - IM 10/25/18 11:01 .ONCE ONE ASSESSMENT/PLAN 73 year-old female with a PMH significant for non-Hodkins lymphoma. Placed on observation for severe sepsis secondary to CAP. Severe sepsis secondary to CAP --T101.1, WBC 11.0, p117, lactic acid 2.2, CXR with left infiltrate on admission --remains febrile, WBC trending down --flu negative, strep negative --continue ceftriaxone, azithromycin --repeat cxr: left infiltrate on my read --repeat lactic acid pending Non-Hodgkins lymphona --in remission x 8 years, stable FEN Fluids: NS@75mL/hr Electrolytes: replete as indicated Nutrition: regular diet DVT prophylaxis: subq lovenox Dispo: continues to require inpatient care. Full code. Visit type - Emergency Visit Emergency Visit: Yes ED Registration Date: 10/24/18 Care time: The patient presented to the Emergency Department on the above date and was hospitalized for further evaluation of their emergent condition. - New Patient This patient is new to me today: No - Critical Care Critical Care patient: No
[2018-10-25] MEDS: ALBUTEROL SO4 2.5/IPRATROPIUM 0.5 INH SOL 3 ML VIAL.NEB. NEB SCH ×3 (10:11→22:24)
[2018-10-25] MEDS: CEFTRIAXONE 1 G/50 ML PREMIX 50 ML IVPB SCH (10:11)
[2018-10-25] MEDS: ENOXAPARIN NA (PORCINE) 40 MG/0.4 ML DISP.SYRIN SQ SCH (10:16)
[2018-10-25] MEDS: AZITHROMYCIN IVPB 500 MG/250 ML BAG IVPB SCH (10:16)
[2018-10-25] MEDS: ACETAMINOPHEN 325 MG TABLET (FP) PO SCH ×3 (10:37→22:24)
[2018-10-25] MEDS ORDERED: PNEUMOC 13-VAL CONJ-DIP CRM/PF 0.5 ML DISP.SYRIN IM ONE (11:00)
--- NOTE | 2018-10-25 14:49 | EKG ---
Test Reason : Blood Pressure : / mmHG Vent. Rate : 111 BPM Atrial Rate : 111 BPM P-R Int : 146 ms QRS Dur : 074 ms QT Int : 318 ms P-R-T Axes : 063 033 041 degrees QTc Int : 432 ms SINUS TACHYCARDIA POSSIBLE LEFT ATRIAL ENLARGEMENT POSSIBLE INFERIOR INFARCT , AGE UNDETERMINED ABNORMAL ECG Confirmed by MEJIA NGUYEN MD ([id number]) on 10/25/2018 2:48:48 PM Referred By: ABNER ELDER Confirmed By:MEJIA NGUYEN MD
[2018-10-25] MEDS: SODIUM CHLORIDE 1,000 ML IV SCH (22:24)
[2018-10-26] MEDS: ACETAMINOPHEN 325 MG TABLET (FP) PO SCH ×4 (04:15→21:56)
[2018-10-26] MEDS: ALBUTEROL SO4 2.5/IPRATROPIUM 0.5 INH SOL 3 ML VIAL.NEB. NEB SCH ×3 (08:43→20:00)
[2018-10-26] MEDS: ENOXAPARIN NA (PORCINE) 40 MG/0.4 ML DISP.SYRIN SQ SCH (10:14)
[2018-10-26] MEDS: CEFTRIAXONE 1 G/50 ML PREMIX 50 ML IVPB SCH (10:14)
[2018-10-26] MEDS: AZITHROMYCIN IVPB 500 MG/250 ML BAG IVPB SCH (10:15)
--- NOTE | 2018-10-26 13:14 | PN ---
Physical Exam: SUBJECTIVE: Patient seen and examined at bedside. Feeling much better. Very anxious to get home for Mother's Day tomorrow. OBJECTIVE: Vital Signs Period Temp Pulse Resp BP Sys/Bellamy Pulse Ox Last 24 Hr 98.3 F-101 F 87-104 16-18 118-158/47-66 93-98 GENERAL: Awake, alert, and fully oriented. LUNGS: Breath sounds equal, clear to auscultation bilaterally. No wheezes, and no crackles. No accessory muscle use. HEART: Regular rate and rhythm, normal S1 and S2 ABDOMEN: Soft, nontender, not distended MUSCULOSKELETAL: Normal range of motion at all joints. No bony deformities or tenderness. No CVA tenderness. UPPER EXTREMITIES: 2+ pulses, warm, well-perfused. No cyanosis. No clubbing. No peripheral edema. LOWER EXTREMITIES: 2+ pulses, warm, well-perfused. No calf tenderness. No peripheral edema. NEUROLOGICAL: Cranial nerves II-XII intact. Normal speech. Laboratory Results - last 24 hr 10/25/18 10/25/18 11:34 13:15 Lactic Acid Cancelled 0.9 Active Medications Generic Name Dose Route Start Last Admin Trade Name Freq PRN Reason Stop Dose Admin Acetaminophen 650 mg 10/25/18 10:30 10/26/18 10:14 Tylenol - PO 650 mg Q6H TRACEY Administration Albuterol/Ipratropium 1 amp 10/24/18 20:00 10/26/18 08:43 Duoneb - NEB 1 amp RTID TRACEY Administration Enoxaparin Sodium 40 mg 10/25/18 10:00 10/26/18 10:14 Lovenox - SQ 40 mg DAILY TRACEY Administration Azithromycin 500 mg in 250 mls @ 250 mls/hr 10/25/18 10:00 10/26/18 10:15 Zithromax 500mg Ivpb (Pre-Docked) IVPB 250 mls/hr DAILY TRACEY Administration Ceftriaxone Sodium 50 mls @ 100 mls/hr 10/25/18 10:00 10/26/18 10:14 Ceftriaxone 1 Gm-D5w Bag IVPB 100 mls/hr DAILY TRACEY Administration Protocol Sodium Chloride 1,000 mls @ 75 mls/hr 10/24/18 21:00 10/25/18 22:24 Normal Saline - IV 75 mls/hr ASDIR TRACEY Administration ASSESSMENT/PLAN 73 year-old female with a PMH significant for non-Hodkins lymphoma. Placed on observation for severe sepsis secondary to CAP. Severe sepsis secondary to CAP Lactic acidosis, resolved --Tm 101 --flu negative, strep negative; respiratory virus panel pending --continue ceftriaxone, azithromycin Non-Hodgkins lymphona --in remission x 8 years, stable FEN Fluids: PO intake adequate Electrolytes: replete as indicated Nutrition: regular diet DVT prophylaxis: subq lovenox Dispo: if remains afebrile, OK to discharge tomorrow on augmentin. Continues to require inpatient care. Full code. Visit type - Emergency Visit Emergency Visit: Yes ED Registration Date: 10/25/18 Care time: The patient presented to the Emergency Department on the above date and was hospitalized for further evaluation of their emergent condition. - New Patient This patient is new to me today: No - Critical Care Critical Care patient: No
[2018-10-27] MEDS: ACETAMINOPHEN 325 MG TABLET (FP) PO SCH ×2 (04:42→09:48)
[2018-10-27 06:26] VITALS: TEMP 98.7
[2018-10-27] MEDS: ALBUTEROL SO4 2.5/IPRATROPIUM 0.5 INH SOL 3 ML VIAL.NEB. NEB SCH (08:05)
[2018-10-27 09:11] LABS: BASO % 0.8 % (0-2.0); EOS % 5.5 % (0-4.5); HEMOGLOBIN 12.9 GM/dl (10.7-15.3); LYMPH % 13.9 % (8-40); MCH 31.4 pg (25.7-33.7); MEAN CELL VOLUME 95.2 fl (80-96); MEAN PLT VOLUME 8.9 fl (7.5-11.1); MONO % 8.1 % (3.8-10.2); NEUT % 71.7 % (42.8-82.8); PLATELET COUNT 290 K/MM3 (134-434); RDW 12.8 % (11.6-15.6); WHITE BLOOD COUNT 9.8 K/mm3 (4.0-10.8)
[2018-10-27] MEDS: AZITHROMYCIN IVPB 500 MG/250 ML BAG IVPB SCH (09:15)
[2018-10-27] MEDS: CEFTRIAXONE 1 G/50 ML PREMIX 50 ML IVPB SCH (09:15)
[2018-10-27] MEDS: ENOXAPARIN NA (PORCINE) 40 MG/0.4 ML DISP.SYRIN SQ SCH (09:15)
[2018-10-27 09:25] LABS: ALBUMIN 3.2 g/dl (3.4-5.0); BILIRUBIN,TOTAL 0.5 mg/dl (0.2-1); CREATININE 0.7 mg/dl (0.55-1.3); MAGNESIUM 2.1 mg/dL (1.8-2.4); POTASSIUM 4.1 mmol/L (3.5-5.1)
[2018-10-27 09:45] VITALS: BP 120/53; PULSE 89
--- NOTE | 2018-10-27 11:55 | DS ---
Physical Exam: SUBJECTIVE: Patient seen and examined. Denies cp, sob, palpitations, fever, chills, cough, abdominal pain,N/V/D. OBJECTIVE: Vital Signs Period Temp Pulse Resp BP Sys/Bellamy Pulse Ox Last 24 Hr 98.2 F-99.7 F 80-105 17-20 120-150/48-74 94-95 PHYSICAL EXAM GENERAL: The patient is awake, alert, and fully oriented, in no acute distress. HEAD: Normal with no signs of trauma. EYES: PERRL, extraocular movements intact, sclera anicteric, conjunctiva clear. ENT: Ears normal, nares patent, oropharynx clear without exudates, moist mucous membranes. NECK: Trachea midline, full range of motion, supple. LUNGS: Breath sounds equal, clear to auscultation bilaterally, no wheezes, no crackles, no accessory muscle use. HEART: Regular rate and rhythm, S1, S2 without murmur, rub or gallop. ABDOMEN: Soft, nontender, nondistended, normoactive bowel sounds, no guarding, no rebound, no hepatosplenomegaly, no masses. EXTREMITIES: 2+ pulses, warm, well-perfused, no edema. NEUROLOGICAL: Cranial nerves II through XII grossly intact. Normal speech, gait not observed. PSYCH: Normal mood, normal affect. SKIN: Warm, dry, normal turgor, no rashes or lesions noted. LABS Laboratory Results - last 24 hr 10/27/18 10/27/18 07:30 07:30 WBC 9.8 RBC 4.10 Hgb 12.9 Hct 39.0 MCV 95.2 MCH 31.4 MCHC 33.0 RDW 12.8 Plt Count 290 MPV 8.9 Absolute Neuts (auto) 7.0 Neutrophils % 71.7 Lymphocytes % 13.9 Monocytes % 8.1 Eosinophils % 5.5 H Basophils % 0.8 Sodium 139 Potassium 4.1 Chloride 104 Carbon Dioxide 23 Anion Gap 12 BUN 13 Creatinine 0.7 Est GFR (CKD-EPI)AfAm 101.03 Est GFR (CKD-EPI)NonAf 87.17 Random Glucose 92 Calcium 9.0 Magnesium 2.1 Total Bilirubin 0.5 AST 19 ALT 20 Alkaline Phosphatase 83 Total Protein 6.0 L Albumin 3.2 L HOSPITAL COURSE: Date of Admission:10/25/18 Date of Discharge: 10/27/18 This is a 73 year-old female with a PMH significant for non-Hodkins lymphoma. Who presents to ER,complaining fever,chills and back pain,found to have Lactic acidosis,Tem 101 and leukocytosis. Placed on observation for severe sepsis secondary to CAP. Influenza and strep ruled out. Pt was given Ceftriaxone and Azithromycin with improvement. Now remains afebrile,lactic acidosis and leukocytosis normalized, Blood culture showed no growth. Will resume on Ceftin to complete the course. *Non-Hodgkins lymphona-in remission x 8 years, stable Minutes to complete discharge: 35 Discharge Summary Reason For Visit: COMMUNITY ACQUIRED PNEUMONIA Condition: Fair - Instructions Diet, Activity, Other Instructions: Regular diet. Referrals: Mario Ramos [Non Staff, Medical] - (1-2 weeks) Disposition: HOME - Home Medications Comprehensive Discharge Medication List: Ambulatory Orders Acetaminophen [Tylenol .Regular Strength -] 650 mg PO Q6H tablet 10/27/18 Cefuroxime Axetil [Ceftin -] 500 mg PO Q12H #8 tablet 10/27/18 This patient is new to me today: Yes Date on this admission: 10/27/18 Emergency Visit: Yes ED Registration Date: 10/25/18 Care time: The patient presented to the Emergency Department on the above date and was hospitalized for further evaluation of their emergent condition. Critical Care patient: No - Discharge Referral Referred to [facility] No
== END 2018-10-27 11:08 | disposition home or self-care (01) | DRG 871 ==
LOC: FER 11:12 → FM/S 16:22 → UNDOADMOB 16:22 → INTOOBSV 16:22 → UNDOADMOB 16:27 → FM/S 16:27 → INTOOBSV 10-25 12:41 → OBSVTOIN 10-25 12:41
PROVIDERS: ATTEND Nurse Practitioner Family
DX: A41.89 Other specified sepsis (principal); J18.9 Pneumonia, unspecified organism; E87.2 Acidosis; R50.9 Fever, unspecified; R65.20 Severe sepsis without septic shock; D72.829 Elevated white blood cell count, unspecified; K57.90 Diverticulosis of intestine, part unspecified, without perforation or abscess without bleeding; Z87.442 Personal history of urinary calculi; Z85.72 Personal history of non-Hodgkin lymphomas
CPT/HCPCS: 36415; 71046-TC-FY; 80053; 81003; 81015; 83605; 83735; 84484; 85025; 85610; 85730; 87040; 87070; 87086; 87633; 87804; 87880; 87899; 93005; 94640; 99284-25; J0131; J7030

== ENCOUNTER 2019-04-12 17:44 | Emergency (ER) | payer OTHER ==
[2019-04-12 17:51] VITALS: TEMP 99; BMI 32.7
--- NOTE | 2019-04-12 17:53 | PDOC ---
History of Present Illness - General History Source: Patient, Family Exam Limitations: No Limitations <Lenny Chahal - Last Filed: 04/12/19 19:04> <Amirah Ramirez - Last Filed: 04/12/19 23:53> - General Chief Complaint: Rectal Bleed Stated Complaint: RECTAL BLEED Time Seen by Provider: 04/12/19 17:52 Past History - Past Medical History Anemia: No Asthma: No Cancer: Yes (HX OF LYMPHOMA 2010) Cardiac Disorders: No CVA: No COPD: No CHF: No Dementia: No Diabetes: No GI Disorders: No Disorders: Yes (KIDNEY STONES) HTN: No Hypercholesterolemia: No Liver Disease: No Seizures: No Thyroid Disease: No - Surgical History Abdominal Surgery: No Appendectomy: Yes Cardiac Surgery: No Cholecystectomy: No Lung Surgery: No Neurologic Surgery: No Orthopedic Surgery: Yes (08/29/17 RIGHT SHOULDER ARTHROSCOPY) - Immunization History Immunization Up to Date: No - Psycho Social/Smoking Cessation Hx Smoking History: Never smoked Have you smoked in the past 12 months: No Information on smoking cessation initiated: No Hx Alcohol Use: No Drug/Substance Use Hx: No Substance Use Type: None Hx Substance Use Treatment: No <Lenny Chahal - Last Filed: 04/12/19 19:04> <Amirah Ramirez - Last Filed: 04/12/19 23:53> - Past Medical History Allergies/Adverse Reactions: Allergies Allergy/AdvReac Type Severity Reaction Status Date / Time No Known Drug Allergies Allergy Verified 04/12/19 17:46 Home Medications: Ambulatory Orders NK [No Known Home Medication] 04/12/19 Review of Systems - Review of Systems Able to Perform ROS?: Yes Is the patient limited Argentine proficient: No <Lenny Chahal - Last Filed: 04/12/19 19:04> *Physical Exam - Vital Signs Last Vital Signs Temp Pulse Resp BP Pulse Ox 99 F 101 H 18 141/61 97 04/12/19 17:45 04/12/19 17:45 04/12/19 17:45 04/12/19 17:45 04/12/19 17:45 <Lenny Chahal - Last Filed: 04/12/19 19:04> - Vital Signs Last Vital Signs Temp Pulse Resp BP Pulse Ox 99 F 87 17 131/63 97 04/12/19 17:45 04/12/19 19:00 04/12/19 19:00 04/12/19 19:00 04/12/19 17:45 <Amirah Ramirez - Last Filed: 04/12/19 23:53> ED Treatment Course - LABORATORY CBC & Chemistry Diagram: 04/12/19 18:55 04/12/19 18:55 <Lenny Chahal - Last Filed: 04/12/19 19:04> - LABORATORY CBC & Chemistry Diagram: 04/12/19 18:55 04/12/19 18:55 - ADDITIONAL ORDERS Additional order review: Laboratory Results 04/12/19 04/12/19 18:55 18:55 Sodium 142 Potassium 4.1 Chloride 111 H Carbon Dioxide 26 Anion Gap 5 L BUN 28.0 H Creatinine 0.8 Est GFR (CKD-EPI)AfAm 85.37 Est GFR (CKD-EPI)NonAf 73.65 Random Glucose 121 H Calcium 9.0 Total Bilirubin 0.3 AST 23 ALT 24 Alkaline Phosphatase 91 Total Protein 6.9 Albumin 3.8 Stool Occult Blood Negative 04/12/19 18:55 RBC 4.42 MCV 92.8 MCHC 34.3 RDW 13.0 MPV 8.8 Neutrophils % 67.7 Lymphocytes % 18.2 Monocytes % 6.2 Eosinophils % 7.1 H Basophils % 0.8 <Amirah Ramirez - Last Filed: 04/12/19 23:53> Medical Decision Making - Medical Decision Making 04/12/19 18:26 HPI: 74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 Denies melena or tarry stool. Blood only w/ BMs. Painless until today now. Endorses straining w/ the first BM w/ blood. Came to ED today bc pain and more blood on stool today. Denies lightheadedness, dizziness, cp/sob, n/v, abd pain, f/c. Denies smoking, etoh, drugs. ROS: CONSTITUTIONAL: Denies F / C HEENT: Denies lightheadedness, dizziness RESP: Denies SOB CARD: Denies chest pain, palpitations GI: Endorses blood coating stool. Denies melena. Denies N / V / D, abdominal pain, inability to tolerate PO : Denies dysuria, hematuria, frequency, vaginal discharge NEURO: Denies numbness, tingling, weakness PE: GEN: Well appearing, NAD, comfortable. AAOx3 HEENT: NC/AT. Conjunctival pallor, anicteric. No facial asymmetry. Moist mucous membranes. Normal voice. Supple neck w/ FROM. CV: S1/S2, RRR, no m/r/g LUNG: CTAB, no wheezes, crackles, rales, rhonchi. GI: soft, ndnt, +BS, no guarding, no rebound. No masses. RECTAL: External hemorrhoid @ 6 o'clock w/o active bleeding. No active bleeding or oozing from anus. Normal sphincter tone. No masses or nodules of the rectal vault palpated. No fecal impaction. Presence of diluted blood tinged fluid on glove. EXTREMITIES: No LE edema. No obvious deformities of all extremities. SKIN: warm, dry, normal turgor PSYCH: normal mood and affect NEURO: Moving all extremities well. MDM: 74F w/ 4 days of bright red blood coating stools. One BM per day each time w/ blood coating. - FOBT, CBC, CMP 04/12/19 18:59 Rpt HR 80s 04/12/19 19:04 FOBT neg; note there was red dilute fluid on the napkin and on the FOBT card smear <Lenny Chahal - Last Filed: 04/12/19 19:04> Discharge <Lenny Chahal - Last Filed: 04/12/19 19:04> - Discharge Information Problems reviewed: Yes <Amirah Ramirez - Last Filed: 04/12/19 23:53> - Discharge Information Clinical Impression/Diagnosis: Rectal bleeding Condition: Stable Disposition: HOME - Follow up/Referral Referrals: Ez Ramos [Primary Care Provider] - 2 Days - Patient Discharge Instructions Patient Printed Discharge Instructions: DI for Rectal Bleeding Additional Instructions: followup with Dr Martin on Sunday, Apr 14 return to ER immediately if you have weakness/lightheadedness, abdominal pain, vomiting or pass blood clots - Post Discharge Activity
[2019-04-12 19:03] LABS: BASO % 0.8 % (0-2.0); EOS % 7.1 % (0-4.5); HEMOGLOBIN 14.1 GM/dl (10.7-15.3); LYMPH % 18.2 % (8-40); MCH 31.8 pg (25.7-33.7); MCHC 34.3 g/dl (32.0-36.0); MEAN CELL VOLUME 92.8 fl (80-96); MEAN PLT VOLUME 8.8 fl (7.5-11.1); MONO % 6.2 % (3.8-10.2); NEUT % 67.7 % (42.8-82.8); PLATELET COUNT 321 K/MM3 (134-434); RBC 4.42 M/mm3 (3.60-5.2); WHITE BLOOD COUNT 9.4 K/mm3 (4.0-10.8)
[2019-04-12 19:08] VITALS: BP 131/63; PULSE 87
[2019-04-12 19:18] LABS: ALBUMIN 3.8 g/dl (3.4-5.0); BILIRUBIN,TOTAL 0.3 mg/dl (0.2-1); CREATININE 0.8 mg/dl (0.55-1.3); POTASSIUM 4.1 mmol/L (3.5-5.1); TOT PROT 6.9 g/dl (6.4-8.2)
== END 2019-04-12 20:53 | disposition home or self-care (01) ==
LOC: FER 17:44
DX: K62.5 Hemorrhage of anus and rectum (principal); Z85.72 Personal history of non-Hodgkin lymphomas; N20.0 Calculus of kidney
CPT/HCPCS: 36415; 80053; 82272; 85025; 99282-25

== ENCOUNTER 2019-06-24 18:54 | Emergency (ER) | payer OTHER ==
[2019-06-24 19:00] VITALS: BP 170/81; PULSE 93; TEMP 98; BMI 32.3
--- NOTE | 2019-06-24 20:17 | PDOC ---
History of Present Illness - General Chief Complaint: Cold Symptoms Stated Complaint: COUGH Time Seen by Provider: 06/24/19 19:42 - History of Present Illness Initial Comments: The pt is a 74F w/ a history of lymphoma s/p chemo who presents for evaluation of chronic intermittently productive cough. She states every 3 weeks she develops 1-2 weeks of cough that is treated by her PCP, resolves and the recurs. She endorses associated sore throat with the cough as well as upper back pain. She denies fevers, weight loss, N/V/C/D, dysuria, hematuria, rash. She also denies chest pain, trouble breathing, CORONEL, vision changes, or changes in sensation. She was sent in by her PCP, Dr. Ramos, for evaluation and advised admission for w/ u of lymphoma vs PNA, vs influenza 06/24/19 20:34 Past History - Past Medical History Allergies/Adverse Reactions: Allergies Allergy/AdvReac Type Severity Reaction Status Date / Time No Known Drug Allergies Allergy Verified 06/24/19 19:00 Home Medications: Ambulatory Orders NK [No Known Home Medication] 04/12/19 Anemia: No Asthma: No Cancer: Yes (HX OF LYMPHOMA 2010) Cardiac Disorders: No CVA: No COPD: No CHF: No Dementia: No Diabetes: No GI Disorders: No Disorders: Yes (KIDNEY STONES) HTN: No Hypercholesterolemia: No Liver Disease: No Seizures: No Thyroid Disease: No - Surgical History Abdominal Surgery: No Appendectomy: Yes Cardiac Surgery: No Cholecystectomy: No Lung Surgery: No Neurologic Surgery: No Orthopedic Surgery: Yes (08/29/17 RIGHT SHOULDER ARTHROSCOPY) - Immunization History Immunization Up to Date: No - Psycho Social/Smoking Cessation Hx Smoking History: Never smoked Have you smoked in the past 12 months: No Hx Alcohol Use: No Drug/Substance Use Hx: No Substance Use Type: None Hx Substance Use Treatment: No Review of Systems - Review of Systems Able to Perform ROS?: Yes Comments:: GENERAL/CONSTITUTIONAL: No fever or chills HEAD, EYES, EARS, NOSE AND THROAT: No change in vision. No change in hearing. No sore throat CARDIOVASCULAR: No chest pain or shortness of breath RESPIRATORY: Denies hemoptysis GASTROINTESTINAL: No nausea, vomiting, diarrhea or constipation GENITOURINARY: No dysuria, frequency, or change in urination MUSCULOSKELETAL: No joint or muscle swelling or pain. No neck or back pain SKIN: No rash NEUROLOGIC: No headache, vertigo, loss of consciousness, or change in strength/ sensation ENDOCRINE: No increased thirst. No abnormal weight change HEMATOLOGIC/LYMPHATIC: No anemia, easy bleeding, or history of blood clots ALLERGIC/IMMUNOLOGIC: No hives or skin allergy 06/24/19 20:16 Is the patient limited Hebrew proficient: No *Physical Exam - Vital Signs Last Vital Signs Temp Pulse Resp BP Pulse Ox 98 F 93 H 18 170/81 99 06/24/19 18:57 06/24/19 18:57 06/24/19 18:57 06/24/19 18:57 06/24/19 18:57 - Physical Exam GENERAL: Awake, alert, and oriented to person/place/time, in no acute distress HEAD: No signs of trauma, normocephalic, atraumatic EYES: PERRLA, EOMI, sclera anicteric, conjunctiva clear ENT: Hearing grossly normal, nares patent, oropharynx w/ mild erythema w/o exudates. No uvular deviation. Moist mucosa LUNGS: No distress, speaks in full sentences, clear to auscultation bilaterally , non-productive cough observed HEART: Regular rate and rhythm, normal S1 and S2, no murmurs appreciated, peripheral pulses normal and equal bilaterally ABDOMEN: Soft, protuberant, nontender, normoactive bowel sounds. No guarding, no rebound EXTREMITIES: Normal inspection, Normal range of motion, no edema. No clubbing or cyanosis NEUROLOGICAL: Cranial nerves II through XII grossly intact. Normal speech, normal gait, no focal sensorimotor deficits SKIN: Warm, Dry 06/24/19 20:16 ED Treatment Course - LABORATORY CBC & Chemistry Diagram: 06/24/19 21:10 06/24/19 21:10 Medical Decision Making - Medical Decision Making The pt is a 74F w/ a history of lymphoma s/p chemo who presents for evaluation of chronic intermittently productive cough. She was sent in by her PCP, Dr. Ramos, for evaluation and advised admission for w/ u of lymphoma vs PNA, vs influenza ED Course Labs sent ECG CXR Flu swab 06/24/19 20:38 Influenza neg CXR w/o evidence of PNA No leukocytosis No anemia Lytes wnl No HOANG LFTs wnl ECG w/ NSR; HR 85; QTc 437; no axis deviation; no TWI Plan for D/C w/ PCP and Pulm f/u Discharge instructions and return precautions given Patient in agreement and verbalized understanding Dispo: Home 06/24/19 22:04 Discharge - Discharge Information Problems reviewed: Yes Clinical Impression/Diagnosis: Cough Condition: Stable Disposition: HOME - Admission No - Follow up/Referral Referrals: Ez Ramos [Primary Care Provider] - - Patient Discharge Instructions Patient Printed Discharge Instructions: DI for Cough -- Adult Additional Instructions: You were seen in the Emergency Department for evaluation of cough. Your flu swab was negative, your X-ray did not have evidence of pneumonia or nodules, and your labs were overall unremarkable. Please follow up with your primary care provider and a photographic printer referral was given. Review the handout provided at discharge. Return to the Emergency Department if you develop fevers, chest pain, trouble breathing, worsening symptoms, or any new/concerning symptoms. - Post Discharge Activity Work/Back to School Note: Back to Work
--- NOTE | 2019-06-24 20:59 | PDOC ---
Documentation entered by Denise Browne SCRIBE, acting as scribe for Chayo Miller MD. Chayo Miller MD: This documentation has been prepared by the bertoibe, Denise Browne SCRIBE, under my direction and personally reviewed by me in its entirety. I confirm that the documentation accurately reflects all work, treatment, procedures, and medical decision making performed by me. Attending Attestation - Resident Resident Name: Marino Rubio - ED Attending Attestation I have performed the following: I have examined & evaluated the patient, The case was reviewed & discussed with the resident, I agree w/resident's findings & plan, Exceptions are as noted - HPI HPI: 06/24/19 20:59 This 74-year-old female has a history of lymphoma In remission and is followed by her PCP HPI she has had some intermittent cough and sore throat over the past few months. She will be symptomatic and then it will resolve but then recur. 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 Santizo to have a work-up to see if she has recurrence of her lymphoma. However at this time she does not have fever or chills or nausea or vomiting or significant abdominal pain or shortness of breath or chest pain 06/24/19 21:53 - Physicial Exam PE: 06/24/19 22:14 Well-nourished well-developed 74-year-old female sent in by her primary care physician for admission to do a formal work-up to see if she has recurrence. Head is normocephalic atraumatic Neck is supple Lungs are clear to auscultation bilaterally CVS is regular rate and rhythm S1-S2 Abdomen is protuberant but no focal tenderness Skin warm and dry Neuro alert and oriented x3, ambulatory with ease no gross focal neuro deficits - Medical Decision Making 06/24/19 22:15 Patient does not have any fever or chills at this time Chest x-ray does not show any significant areas of consolidation or infiltrates or effusions she has a chronically elevated right hemidiaphragm Labs are unremarkable Patient to be discharged home and given her lab results to follow-up with Dr. santizo this week so he can determine if he wants her to have further imaging studies or lab work Patient currently stable with no complaints and is comfortable with the discharge plan
[2019-06-24 21:27] LABS: BASO % 1.1 % (0-2.0); HEMATOCRIT 42.4 % (32.4-45.2); HEMOGLOBIN 14.1 GM/dL (10.7-15.3); LYMPH % 19.1 % (8-40); MCHC 33.3 g/dl (32.0-36.0); MEAN CELL VOLUME 93.1 fl (80-96); MEAN PLT VOLUME 8.3 fl (7.5-11.1); NEUT % 60.8 % (42.8-82.8); PLATELET COUNT 289 K/MM3 (134-434); RBC 4.56 M/mm3 (3.60-5.2); RDW 13.8 % (11.6-15.6)
[2019-06-24 21:57] LABS: ALBUMIN 3.7 g/dl (3.4-5.0); BILIRUBIN,TOTAL 0.3 mg/dL (0.2-1); BLOOD UREA NITROGEN 16.7 mg/dL (7-18); CREATININE 0.8 mg/dL (0.55-1.3); POTASSIUM 4.4 mmol/L (3.5-5.1); TOT PROT 7.3 g/dl (6.4-8.2)
--- NOTE | 2019-06-25 11:35 | EKG ---
Test Reason : Blood Pressure : / mmHG Vent. Rate : 085 BPM Atrial Rate : 085 BPM P-R Int : 150 ms QRS Dur : 080 ms QT Int : 368 ms P-R-T Axes : 071 008 032 degrees QTc Int : 437 ms NORMAL SINUS RHYTHM NORMAL ECG WHEN COMPARED WITH ECG OF 16-NOV-2018 11:45, NO SIGNIFICANT CHANGE WAS FOUND Confirmed by NIKOLAY LOPEZ MD ([id number]) on 06/25/2019 11:34:46 AM Referred By: Confirmed By:NIKOLAY LOPEZ MD
== END 2019-06-24 22:22 | disposition home or self-care (01) ==
LOC: JERFT 18:54 → JER 18:54
DX: R05 Cough (principal); C85.90 Non-Hodgkin lymphoma, unspecified, unspecified site
CPT/HCPCS: 36415; 71046-TC-FY; 80053; 83615; 85025; 87804; 93005; 93010; 99283-25

== ENCOUNTER 2021-09-19 09:24 | Emergency (ER) | payer OTHER ==
[2021-09-19 09:47] VITALS: TEMP 98.6; BMI 32.0
[2021-09-19] MEDS ORDERED: ACETAMINOPHEN 1000 MG/100 ML BAG IVPB ONE (10:21)
[2021-09-19] MEDS ORDERED: ACETAMINOPHEN INJECTION 100 ML IVPB ONE (11:03)
[2021-09-19 11:56] LABS: EOS % 10.2 % (0-4.5); HEMATOCRIT 40.9 % (32.4-45.2); LYMPH % 16.4 % (8-40); MCH 31.7 pg (25.7-33.7); MCHC 34.1 g/dl (32.0-36.0); MEAN CELL VOLUME 92.9 fl (80-96); MEAN PLT VOLUME 7.8 fl (7.5-11.1); MONO % 10.7 % (3.8-10.2); NEUT % 61.7 % (42.8-82.8); PLATELET COUNT 235 10^3/uL (134-434); RDW 13.2 % (11.6-15.6); WHITE BLOOD COUNT 5.9 K/mm3 (4.0-10.0)
[2021-09-19 11:59] LABS: EPI CELLS 12 /uL (0-25.1); HYALINE CASTS 0 /uL (0-3.1); URINE APPEARANCE CLEAR; URINE BILIRUBIN NEGATIVE (NEGATIVE); URINE COLOR DK YELLOW; URINE GLUCOSE (UA) NEGATIVE (NEGATIVE); URINE KETONE NEGATIVE (NEGATIVE); URINE LEUK ESTERASE TRACE (NEGATIVE); URINE NITRITE POSITIVE (NEGATIVE); URINE PROTEIN NEGATIVE (NEGATIVE); URINE RBC 4 /uL (0-23.9); URINE UROBILINOGEN 0.2 mg/dL (0.2-1.0); URINE WBC 5 /uL (0-25.8)
[2021-09-19 12:24] LABS: ALBUMIN 3.5 g/dl (3.4-5.0); BLOOD UREA NITROGEN 15.5 mg/dL (7-18)
[2021-09-19 12:27] LABS: CREATININE 0.8 mg/dL (0.55-1.3)
[2021-09-19 12:28] LABS: BILIRUBIN,TOTAL 0.5 mg/dL (0.2-1); TOT PROT 7.2 g/dl (6.4-8.2)
[2021-09-19 13:30] VITALS: BP 140/72; PULSE 88
[2021-09-20 16:09] LABS: SARS-CoV-2 NAA Not Detected (Not Detected)
== END 2021-09-19 13:38 | disposition home or self-care (01) ==
LOC: JER 09:24
PROC: 3E0333Z Introduction of Anti-inflammatory into Peripheral Vein, Percutaneous Approach (ICD-10-PCS; principal; 2021-09-19)
DX: J06.9 Acute upper respiratory infection, unspecified (principal); N39.0 Urinary tract infection, site not specified
CPT/HCPCS: 36415; 71046-TC-FY; 80053; 81003; 85025; 87086; 87804; 93005; 93010; 96374; 99285-25; C9803-CS; U0003; U0005